=== PATIENT | female | born 1955 | race American Indian/Alaskan Native ===

== ENCOUNTER 2016-07-18 17:54 | Inpatient (IN) | payer MEDICAID, OTHER ==
--- NOTE | 2016-07-18 17:56 | EDM.PDOC ---
<Tobias Downey - Last Filed: 07/18/16 18:55> ED HPI GENERAL MEDICAL PROBLEM - General Chief Complaint: Respiratory Problem Stated Complaint: AMBULANCE Time Seen by Provider: 07/18/16 17:55 Source of Information: Reports: Patient, EMS, RN, RN Notes Reviewed History Limitations: Reports: No Limitations Upper Back Pain Score (Numeric/FACES): 8 - Related Data Allergies Allergy/AdvReac Type Severity Reaction Status Date / Time codeine Allergy Vomiting Verified 07/18/16 17:55 morphine Allergy Rash Verified 07/18/16 17:55 Penicillins Allergy Hives Verified 07/18/16 17:55 Home Meds: Home Meds Albuterol [Proventil HFA] 2 puff INH Q6H PRN 01/15/16 [History] Aspirin [Ecotrin] 325 mg PO DAILY 01/15/16 [History] Clopidogrel [Plavix] 75 mg PO DAILY 01/15/16 [History] Digoxin 125 mcg PO DAILY 01/15/16 [History] Folic Acid 1 mg PO DAILY 01/15/16 [History] Gabapentin [Neurontin] 1,200 mg PO TID 01/15/16 [History] Hydroxychloroquine [Plaquenil] 200 mg PO BID 01/15/16 [History] Leflunomide [Arava] 10 mg PO DAILY 01/15/16 [History] Levothyroxine 175 mcg PO ACBRK 01/15/16 [History] Lisinopril [Prinivil] 5 mg PO DAILY 01/15/16 [History] Pantoprazole [ProTONIX] 40 mg PO ACBREAKFAST 01/15/16 [History] Simvastatin [Zocor] 20 mg PO BEDTIME 01/15/16 [History] metFORMIN [Glucophage] 1,000 mg PO BIDMEALS 01/15/16 [History] oxyCODONE HCl/Acetaminophen [Percocet 10-325 mg Tablet] 1 each PO Q6HR PRN 01/14 [History] oxyCODONE ER [OxyCONTIN] 10 mg PO Q12HR 01/16/16 [History] Benzonatate [Tessalon Perles] 100 mg PO TID PRN #21 cap 01/19/16 [Rx] Nicotine [Habitrol] 14 mg TRDERM DAILY #30 patch 01/19/16 [Rx] Prednisone [IJD: Prednisone] 10 mg PO DAILY #20 tab 01/19/16 [Rx] Past Medical History HEENT History: Reports: Impaired Vision Cardiovascular History: Reports: CAD, Heart Failure, High Cholesterol, Hypertension, ID Respiratory History: Reports: COPD 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: Musculoskeletal History: Reports: RA Endocrine/Metabolic History: Reports: Diabetes, Type II, Hypothyroidism - Past Surgical History Cardiovascular Surgical History: Reports: Coronary Artery Bypass Musculoskeletal Surgical History: Reports: Other (See Below) Social & Family History - Family History Family Medical History: Noncontributory - Tobacco Use Smoking Status *Q: Current Some Day Smoker Years of Tobacco use: 30 Packs/Tins Daily: 0.5 Second Hand Smoke Exposure: Yes - Caffeine Use Caffeine Use: Reports: Coffee - Alcohol Use Days Per Week of Alcohol Use: 0 - Recreational Drug Use Recreational Drug Use: No - Living Situation & Occupation Living situation: Reports: with Family Occupation: Disabled Course - Vital Signs Last Recorded V/S: Last Vital Signs Temp 36.4 C 07/18/16 20:42 Pulse 99 07/18/16 20:42 Resp 22 H 07/18/16 20:42 BP 97/57 L 07/18/16 20:42 Pulse Ox 98 07/18/16 20:42 - Orders/Labs/Meds Orders: Active Orders 24 hr Category Date Time Status EKG Documentation Completion [RC] URGENT Care 07/18/16 19:34 Active Peripheral IV Care [RC] . DIRECTED Care 07/18/16 18:29 Active RT Aerosol Therapy [RC] ASDIRECTED Care 07/18/16 18:29 Active Chest w Cont [CT] Urgent Exams 07/18/16 19:21 Taken CULTURE BLOOD [BC] Stat Lab 07/18/16 18:41 Received CULTURE BLOOD [BC] Stat Lab 07/18/16 19:15 Received UA W/MICROSCOPIC [URIN] Stat Lab 07/18/16 20:17 Received Sodium Chloride 0.9% [Saline Flush] Med 07/18/16 18:29 Active 10 ml FLUSH ASDIRECTED PRN Blood Culture x2 Reflex Set [OM.PC] Stat Oth 07/18/16 18:29 Ordered Peripheral IV Insertion Adult [OM.PC] Stat Oth 07/18/16 18:29 Ordered Medication Orders Sodium Chloride (Saline Flush) 10 ml FLUSH ASDIRECTED PRN PRN Reason: Keep Vein Open Labs: Laboratory Tests 07/18/16 07/18/16 07/18/16 Range/Units 18:41 18:41 18:41 WBC 23.0 H (5.0-10.0) 10^3/uL RBC 4.39 (4.2-5.4) 10^6/uL Hgb 11.7 L (12.0-16.0) g/dL Hct 35.9 L (37.0-47.0) % MCV 81.8 (80-100) fL MCH 26.7 L (27.0-34.0) pg MCHC 32.6 L (33.0-35.0) g/dL Plt Count 110 L (150-450) 10^3/uL Neut % (Auto) 90.5 H (42.2-75.2) % Lymph % (Auto) 5.3 L (20.5-50.1) % Z[place]ata % (Auto) 4.1 (2-8) % Eos % (Auto) 0.0 L (1.0-3.0) % Baso % (Auto) 0.1 (0.0-1.0) % D-Dimer, Quantitative 3010 H (0-400) ng/mL Sodium 127 L (135-145) mmol/L Potassium 4.0 (3.6-5.0) mmol/L Chloride 96 L (101-111) mmol/L Carbon Dioxide 22.0 (21.0-31.0) mmol/L Anion Gap 13.0 BUN 19 H (7-18) mg/dL Creatinine 1.0 (0.6-1.3) mg/dL Est Cr Clr Drug Dosing 43.81 mL/min Estimated GFR (MDRD) 57 BUN/Creatinine Ratio 19.00 Glucose 127 H (74-105) mg/dL Lactic Acid (0.5-2.2) mmol/L Calcium 8.1 L (8.4-10.2) mg/dl Total Bilirubin 1.0 (0.2-1.0) mg/dL AST 17 (10-42) IU/L ALT 10 (10-60) IU/L Alkaline Phosphatase 81 (42-121) IU/L Troponin I 0.05 H* (0.00-0.02) ng/ml Total Protein 7.3 (6.7-8.2) g/dl Albumin 3.1 L (3.2-5.5) g/dl Globulin 4.2 Albumin/Globulin Ratio 0.74 Urine Opiates Screen (NEGATIVE) Ur Oxycodone Screen (NEGATIVE) Urine Methadone Screen (NEGATIVE) Ur Barbiturates Screen (NEGATIVE) U Tricyclic Antidepress (NEGATIVE) Ur Phencyclidine Scrn (NEGATIVE) Ur Amphetamine Screen (NEGATIVE) U Methamphetamines Scrn (NEGATIVE) Urine MDMA Screen (NEGATIVE) U Benzodiazepines Scrn (NEGATIVE) Urine Cocaine Screen (NEGATIVE) U Marijuana (THC) Screen (NEGATIVE) Ethyl Alcohol < 5 mg/dL 07/18/16 07/18/16 Range/Units 18:41 20:17 WBC (5.0-10.0) 10^3/uL RBC (4.2-5.4) 10^6/uL Hgb (12.0-16.0) g/dL Hct (37.0-47.0) % MCV (80-100) fL MCH (27.0-34.0) pg MCHC (33.0-35.0) g/dL Plt Count (150-450) 10^3/uL Neut % (Auto) (42.2-75.2) % Lymph % (Auto) (20.5-50.1) % Zapata % (Auto) (2-8) % Eos % (Auto) (1.0-3.0) % Baso % (Auto) (0.0-1.0) % D-Dimer, Quantitative (0-400) ng/mL Sodium (135-145) mmol/L Potassium (3.6-5.0) mmol/L Chloride (101-111) mmol/L Carbon Dioxide (21.0-31.0) mmol/L Anion Gap BUN (7-18) mg/dL Creatinine (0.6-1.3) mg/dL Est Cr Clr Drug Dosing mL/min Estimated GFR (MDRD) BUN/Creatinine Ratio Glucose (74-105) mg/dL Lactic Acid 1.0 (0.5-2.2) mmol/L Calcium (8.4-10.2) mg/dl Total Bilirubin (0.2-1.0) mg/dL AST (10-42) IU/L ALT (10-60) IU/L Alkaline Phosphatase (42-121) IU/L Troponin I (0.00-0.02) ng/ml Total Protein (6.7-8.2) g/dl Albumin (3.2-5.5) g/dl Globulin Albumin/Globulin Ratio Urine Opiates Screen Positive H (NEGATIVE) Ur Oxycodone Screen Positive H (NEGATIVE) Urine Methadone Screen Negative (NEGATIVE) Ur Barbiturates Screen Negative (NEGATIVE) U Tricyclic Antidepress Negative (NEGATIVE) Ur Phencyclidine Scrn Negative (NEGATIVE) Ur Amphetamine Screen Negative (NEGATIVE) U Methamphetamines Scrn Negative (NEGATIVE) Urine MDMA Screen Negative (NEGATIVE) U Benzodiazepines Scrn Negative (NEGATIVE) Urine Cocaine Screen Negative (NEGATIVE) U Marijuana (THC) Screen Positive H (NEGATIVE) Ethyl Alcohol mg/dL Meds: Medications Generic Name Dose Route Start Last Admin Trade Name Freq PRN Reason Stop Dose Admin Sodium Chloride 10 ml 07/18/16 18:29 Saline Flush FLUSH ASDIRECTED PRN Keep Vein Open Discontinued Medications Generic Name Dose Route Start Last Admin Trade Name Freq PRN Reason Stop Dose Admin Albuterol/Ipratropium 3 ml 07/18/16 18:28 07/18/16 18:38 Duoneb 3.0-0.5 Mg/3 Ml NEB 07/18/16 18:29 3 ml ONETIME ONE Administration Iopamidol 100 ml 07/18/16 19:21 07/18/16 19:52 Isovue-370 (76%) IVPUSH 07/18/16 19:22 51 ml ONETIME ONE Administration Departure - Departure Disposition: Admitted As Inpatient 67 Clinical Impression: Bronchitis - Discharge Information Referrals: PCP,Unobtain [Primary Care Provider] - Forms: ED Department Discharge Care Plan Goals: Discussed the examination, history, lab, x-ray, EKG and CT results with Dr. De Santiago. Dr. De Santiago accepted the patient for continued evaluation and further management as an inpatient at [facility] in [place]. - My Orders Last 24 Hours: My Active Orders 07/18/16 19:21 Chest w Cont [CT] Urgent 07/18/16 19:34 EKG Documentation Completion [RC] URGENT - Assessment/Plan Last 24 Hours: My Active Orders 07/18/16 19:21 Chest w Cont [CT] Urgent 07/18/16 19:34 EKG Documentation Completion [RC] URGENT <Campa,Kody M - Last Filed: 07/18/16 21:20> ED HPI GENERAL MEDICAL PROBLEM - History of Present Illness INITIAL COMMENTS - FREE TEXT/NARRATIVE: This 60 yo female patient was brought to the ED by [facility] due to increased shortness of breath and a cough. The patient reports her symptoms started 4 days ago and have been getting worse. The patient has a past medical history of RA, diabetes, previous ID and previous episodes of pneumonia. The patient was hospitalized for pneumonia in February with similar symptoms. The patient reports she was in [place] for an ultrasound on Saturday of this week. The patient has not attempted to get into the clinic for an appointment this week. Onset: Gradual Onset Date: 07/15/16 Duration: Constant, Getting Worse Location: Reports: Chest Quality: Reports: Dull Severity: Moderate Improves with: Reports: Rest Worsens with: Reports: Movement Associated Symptoms: Reports: Cough, Fever/Chills, Shortness of Breath, Weakness ED ROS GENERAL - Review of Systems Review Of Systems: ROS reveals no pertinent complaints other than HPI. ED EXAM, GENERAL - Physical Exam Exam: See Below Exam Limited By: No Limitations General Appearance: Alert, WD/WN, Mild Distress, Thin Eye Exam: Bilateral Eye: EOMI, Normal Inspection, PERRL Ears: Normal External Exam, Normal Canal, Hearing Grossly Normal, Normal TMs Nose: Normal Inspection, Normal Mucosa, No Blood Throat/Mouth: Normal Inspection, Normal Lips, Normal Teeth, Normal Gums, Normal Oropharynx, Normal Voice, No Airway Compromise Head: Atraumatic, Normocephalic Neck: Normal Inspection, Supple, Non-Tender, Full Range of Motion Respiratory/Chest: No Respiratory Distress, Chest Non-Tender, Decreased Breath Sounds, Rhonchi (diffuse) Cardiovascular: Normal Peripheral Pulses, Regular Rate, Rhythm, No Edema, No Gallop, No JVD, No Rub GI/Abdominal: Normal Bowel Sounds, Soft, Non-Tender, No Organomegaly, No Distention, No Abnormal Bruit, No Mass (Female) Exam: Deferred Rectal (Female) Exam: Deferred Back Exam: Normal Inspection, Full Range of Motion, NT Extremities: Other (deformity of numerous joints due to RA) Neurological: Alert, Oriented, CN II-XII Intact, Normal Cognition, No Motor/ Sensory Deficits Psychiatric: Normal Affect, Normal Mood Skin Exam: Warm, Dry, Intact, Normal Color, No Rash Lymphatic: No Adenopathy Departure - Departure Time of Disposition: 21:13
[2016-07-18] MEDS ORDERED: Albuterol/Ipratropium 3.0-0.5 MG/3 ML Neb Soln NEB ONE (18:28)
[2016-07-18] MEDS ORDERED: Sodium Chloride 0.9% 10 ML Syringe FLUSH PRN ×2 (18:29→21:51)
[2016-07-18 19:08] LABS: CHLORIDE,CL 96 mmol/L (101-111); SODIUM,NA 127 mmol/L (135-145)
[2016-07-18] MEDS ORDERED: Iopamidol 755 Mg/ML 100 ML Bottle IVPUSH ONE (19:21)
[2016-07-18] MEDS ORDERED: Non-Formulary Medication 1 Each (Acetaminophen/Oxycodone 1 EACH) PO PRN (21:46)
[2016-07-18] MEDS ORDERED: Acetaminophen 325 MG Tab PO PRN (21:51)
[2016-07-18] MEDS ORDERED: Insulin Aspart 100 Units/ML 3 ML Pen SUBCUT SCH ×2 (22:00→22:30)
[2016-07-18] MEDS ORDERED: Azithromycin 500 MG Vial ONE (22:05)
[2016-07-18] MEDS ORDERED: oxyCODONE 5 MG Tab PO PRN ×2 (22:09→23:02)
[2016-07-18] MEDS ORDERED: Levothyroxine 100 MCG Tab PO SCH ×2 (22:10→22:15)
--- NOTE | 2016-07-18 22:11 | PCM.HP ---
H&P History of Present Illness - General Date of Service: 07/18/16 Admit Problem/Dx: Admission Diagnosis/Problem Admission Diagnosis/Problem Dyspnea presented with fever, cough, yellow sputum production Has been short of breath since Saturday, has been worsening gradually No associated chest pain, no pain Has chronic joint pain, using oxycodone. Upper Back Pain Score (Numeric/FACES): 8 - Related Data Allergies/Adverse Reactions: Allergies Allergy/AdvReac Type Severity Reaction Status Date / Time codeine Allergy Vomiting Verified 07/18/16 17:55 morphine Allergy Rash Verified 07/18/16 17:55 Penicillins Allergy Hives Verified 07/18/16 17:55 Home Medications: Home Meds Albuterol [Proventil HFA] 2 puff INH Q6H PRN 01/15/16 [History] Aspirin [Ecotrin] 325 mg PO DAILY 01/15/16 [History] Clopidogrel [Plavix] 75 mg PO DAILY 01/15/16 [History] Digoxin 125 mcg PO DAILY 01/15/16 [History] Folic Acid 1 mg PO DAILY 01/15/16 [History] Gabapentin [Neurontin] 1,200 mg PO TID 01/15/16 [History] Hydroxychloroquine [Plaquenil] 200 mg PO BID 01/15/16 [History] Leflunomide [Arava] 10 mg PO DAILY 01/15/16 [History] Levothyroxine 175 mcg PO ACBRK 01/15/16 [History] Lisinopril [Prinivil] 5 mg PO DAILY 01/15/16 [History] Pantoprazole [ProTONIX] 40 mg PO ACBREAKFAST 01/15/16 [History] Simvastatin [Zocor] 20 mg PO BEDTIME 01/15/16 [History] metFORMIN [Glucophage] 1,000 mg PO BIDMEALS 01/15/16 [History] oxyCODONE HCl/Acetaminophen [Percocet 10-325 mg Tablet] 1 each PO Q6HR PRN 01/14 [History] oxyCODONE ER [OxyCONTIN] 10 mg PO Q12HR 01/16/16 [History] Benzonatate [Tessalon Perles] 100 mg PO TID PRN #21 cap 01/19/16 [Rx] Nicotine [Habitrol] 14 mg TRDERM DAILY #30 patch 01/19/16 [Rx] Prednisone [IJD: Prednisone] 10 mg PO DAILY #20 tab 01/19/16 [Rx] Past Medical History HEENT History: Reports: Impaired Vision Cardiovascular History: Reports: CAD, Heart Failure, High Cholesterol, Hypertension, [place], SOB on Exertion Respiratory History: Reports: Bronchitis, Recurrent, COPD, Pulmonary Fibrosis ( do to rheumatoid arthritis), SOB, Other (See Below) Gastrointestinal History: Reports: Cholelithiasis 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: 4 NVD Musculoskeletal History: Reports: Osteoarthritis, RA Neurological History: Reports: Migraines Endocrine/Metabolic History: Reports: Diabetes, Type I, Hypothyroidism Hematologic History: Reports: Anesthesia Reaction, Anemia Immunologic History: Reports: Other (See Below) (rheumatoid arthritis) - Infectious Disease History Infectious Disease History: Reports: Chicken Pox, Measles, Mumps - Past Surgical History HEENT Surgical History: Reports: None Cardiovascular Surgical History: Reports: Coronary Artery Bypass Respiratory Surgical History: Reports: None GI Surgical History: Reports: Cholecystectomy, Colonoscopy Female Surgical History: Reports: Hysterectomy Neurological Surgical History: Reports: None Musculoskeletal Surgical History: Reports: Other (See Below) Other Musculoskeletal Surgeries/Procedures:: hAND SURGERY BILATERALLY Social & Family History - Family History Family Medical History: Noncontributory - Tobacco Use Smoking Status *Q: Current Every Day Smoker Years of Tobacco use: 35 Packs/Tins Daily: 1 Second Hand Smoke Exposure: Yes - Caffeine Use Caffeine Use: Reports: Coffee Caffeine Use Comment: 1 pot/day - Alcohol Use Days Per Week of Alcohol Use: 0 - Recreational Drug Use Recreational Drug Use: No - Living Situation & Occupation Living situation: Reports: with Family Occupation: Disabled H&P Review of Systems - Review of Systems: Review Of Systems: See Below General: Reports: Fever (subjective), Malaise, Weakness Pulmonary: Reports: Shortness of Breath, Cough, Sputum. Denies: Wheezing Cardiovascular: Denies: Chest Pain Gastrointestinal: Denies: Abdominal Pain Genitourinary: Denies: Dysuria Neurological: Denies: Confusion Exam - Exam Exam: See Below - Vital Signs Vital Signs: Last Vital Signs Temp 36.4 C 07/18/16 20:42 Pulse 99 07/18/16 20:42 Resp 22 H 07/18/16 20:42 BP 97/57 L 07/18/16 20:42 Pulse Ox 98 07/18/16 20:42 Weight: 45.983 kg - Exam Quality Assessment: Supplemental Oxygen General: Alert, Oriented Neck: Supple Lungs: Normal Respiratory Effort, Rhonchi Cardiovascular: Regular Rate, Regular Rhythm Back Exam: Normal Inspection, Full Range of Motion, NT Extremities: Other (severe arthritic deformity of all the fingers). No: Edema Neuro Extensive - Mental Status: Alert, Oriented x3, Normal Mood/Affect, Normal Cognition - Patient Data Result Diagrams: 07/18/16 18:41 07/18/16 18:41 Imaging Impressions last 24 hrs: CT of the chest per the sugar reading shows no pulmonary embolism no mass, small nodules, severe fibrotic changes. No apparent infiltrate EKG INTERPRETATION EKG Date: 07/18/16 Rhythm: NSR *Q Meaningful Use (ADM) - VTE *Q VTE Criteria *Q: - Stroke *Q Stroke Criteria *Q: - AMI *Q AMI Criteria *Q: - Problem List (1) Diabetes SNOMED Code(s): 43224156 ICD Code: E11.9 - TYPE 2 DIABETES MELLITUS WITHOUT COMPLICATIONS Status: Acute Current Visit: Yes (2) Hyponatremia SNOMED Code(s): 86872836 ICD Code: E87.1 - HYPO-OSMOLALITY AND HYPONATREMIA Status: Acute Current Visit: Yes (3) Acute bronchitis SNOMED Code(s): 29202383 ICD Code: J20.9 - ACUTE BRONCHITIS, UNSPECIFIED Status: Acute Current Visit: No (4) Leukocytosis SNOMED Code(s): 716609893, 624273161 ICD Code: D72.829 - ELEVATED WHITE BLOOD CELL COUNT, UNSPECIFIED Status: Acute Current Visit: No Qualifiers: Leukocytosis type: unspecified Qualified Code(s): D72.829 - Elevated white blood cell count, unspecified Problem List Initiated/Reviewed/Updated: Yes Orders Last 24hrs: Active Orders 24 hr Category Date Time Status Patient Status [ADT] Routine ADT 07/18/16 21:52 Ordered Antiembolic Devices [RC] PER UNIT ROUTINE Care 07/18/16 21:55 Ordered Blood Glucose Check, Bedside [RC] QIDACANDBED Care 07/18/16 21:51 Ordered Oxygen Therapy [RC] PRN Care 07/18/16 21:52 Ordered RT Aerosol Therapy [RC] ASDIRECTED Care 07/18/16 21:46 Ordered Up With Assistance [RC] ASDIRECTED Care 07/18/16 21:51 Ordered VTE/DVT Education [RC] PER UNIT ROUTINE Care 07/18/16 21:52 Ordered Vital Signs [RC] Q4H Care 07/18/16 21:52 Ordered Consistent Carbohydrate Diet [DIET] Diet 07/18/16 Breakfast Ordered CULTURE SPUTUM + SMEAR [RM] Routine Lab 07/18/16 21:44 Uncollected TROPONIN I [CHEM] AM Lab 07/19/16 05:11 Ordered Acetaminophen [Tylenol] Med 07/18/16 21:51 Ordered 650 mg PO Q4H PRN Acetaminophen/oxyCODONE Med 07/18/16 21:46 Ordered 1 each PO Q6HR PRN Albuterol/Ipratropium [DuoNeb 3.0-0.5 MG/3 ML] Med 07/19/16 07:00 Ordered 3 ml NEB TIDRT Aspirin [Ecotrin] Med 07/19/16 09:00 Ordered 325 mg PO DAILY Azithromycin [Zithromax] 500 mg Med 07/18/16 21:45 Ordered Sodium Chloride 0.9% [Normal Saline] 250 ml IV Q24H Benzonatate [Tessalon Perles] Med 07/18/16 21:46 Ordered 100 mg PO TID PRN Clopidogrel [Plavix] Med 07/19/16 09:00 Ordered 75 mg PO DAILY Digoxin [Lanoxin] Med 07/19/16 09:00 Ordered 125 mcg PO DAILY Folic Acid Med 07/19/16 09:00 Ordered 1 mg PO DAILY Gabapentin Med 07/19/16 09:00 Ordered 1,200 mg PO TID Heparin Sodium Med 07/18/16 22:00 Ordered 5,000 units SUBCUT Q8HR Hydroxychloroquine [Plaquenil] Med 07/19/16 09:00 Ordered 200 mg PO BID Insulin Aspart [NovoLOG] Med 07/18/16 22:00 Ordered See Protocol SUBCUT .QACHS Leflunomide [Arava] Med 07/19/16 09:00 Ordered 10 mg PO DAILY Levothyroxine [Levothyroxine] Med 07/18/16 22:00 Ordered 175 mcg PO ACBRK Lisinopril [Prinivil] Med 07/19/16 09:00 Ordered 5 mg PO DAILY Nicotine [Habitrol] Med 07/19/16 09:00 Ordered 14 mg TRDERM DAILY Pantoprazole [ProTONIX] Med 07/19/16 06:00 Ordered 40 mg PO ACBREAKFAST Simvastatin [Zocor] Med 07/19/16 21:00 Ordered 20 mg PO BEDTIME Sodium Chloride 0.9% @ 75 MLS/HR(1000ml) Med 07/18/16 22:00 Ordered Sodium Chloride 0.9% [Normal Saline] 1,000 ml IV ASDIRECTED Sodium Chloride 0.9% [Saline Flush] Med 07/18/16 21:51 Ordered 10 ml FLUSH ASDIRECTED PRN cefTRIAXone [Rocephin] 1 gm Med 07/18/16 21:45 Ordered Sodium Chloride 0.9% [Normal Saline] 50 ml IV Q24H oxyCODONE ER [OxyCONTIN] Med 07/19/16 09:00 Ordered 10 mg PO Q12HR predniSONE Med 07/19/16 09:00 Ordered 10 mg PO DAILY Antiembolic Hose [OM.PC] Per Unit Routine Oth 07/18/16 21:54 Ordered Saline Lock Insert [OM.PC] Routine Oth 07/18/16 21:51 Ordered Resuscitation Status Routine Resus Stat 07/18/16 21:51 Ordered Medication Orders Acetaminophen (Tylenol) 650 mg PO Q4H PRN PRN Reason: Pain (Mild 1-3)/fever Albuterol/Ipratropium (Duoneb 3.0-0.5 Mg/3 Ml) 3 ml NEB TIDRT [facility] Aspirin (Ecotrin) 325 mg PO DAILY [facility] Benzonatate (Tessalon Perles) 100 mg PO TID PRN PRN Reason: Cough Clopidogrel Bisulfate (Plavix) 75 mg PO DAILY [facility] Digoxin (Lanoxin) 125 mcg PO DAILY@0800 [facility] Folic Acid (Folic Acid) 1 mg PO DAILY [facility] Heparin Sodium (Porcine) (Heparin Sodium) 5,000 units SUBCUT Q8HR [facility] Hydroxychloroquine Sulfate (Plaquenil) 200 mg PO BID [facility] Azithromycin 500 mg/ Sodium (Chloride) 250 mls @ 250 mls/hr IV Q24H [facility] Ceftriaxone Sodium 1 gm/ (Sodium Chloride) 50 mls @ 100 mls/hr IV Q24H [facility] Lisinopril (Prinivil) 5 mg PO DAILY [facility] Nicotine (Habitrol) 14 mg TRDERM DAILY [facility] Non-Formulary Medication (Acetaminophen/Oxycodone) 1 each PO Q6HR PRN PRN Reason: Pain Non-Formulary Medication (Gabapentin) 1,200 mg PO TID [facility] Non-Formulary Medication (Leflunomide [Arava]) 10 mg PO DAILY [facility] Non-Formulary Medication (Levothyroxine [Levothyroxine]) 175 mcg PO ACBRK [facility] Oxycodone HCl (Oxycontin) 10 mg PO Q12HR [facility] Pantoprazole Sodium (Protonix) 40 mg PO ACBREAKFAST [facility] Prednisone (Prednisone) 10 mg PO DAILY [facility] Simvastatin (Zocor) 20 mg PO BEDTIME [facility] Sodium Chloride (Saline Flush) 10 ml FLUSH ASDIRECTED PRN PRN Reason: Keep Vein Open Sodium Chloride (Saline Flush) 10 ml FLUSH ASDIRECTED PRN PRN Reason: Keep Vein Open Assessment/Plan Comment:: 1. Acute bronchitis Presented with cough, subjective fever, yellow sputum, Leukocytosis daughter with similar symptoms at home we'll obtain blood culture, sputum culture treat with azithromycin, Rocephin use scheduled DuoNeb for shortness of breath with history of pulmonary fibrosis 2. Hyponatremia due to poor oral intake They give IV fluids Recheck basic metabolic panel in the morning 3. diabetes Hold metformin use supplemental insulin and hypoglycemia protocol as needed 4. severe rheumatoid arthritis Continue immunosuppressants the leukocytosis might at least in part be due to steroid 5. coronary artery disease Treatment aspirin and Plavix The shortness of breath is most likely not due to the acute coronary syndrome Check troponin in the morning 6. DVT prophylaxis will be with sq heparin 7. chronic pain due to rheumatoid arthritis With chronic continuous narcotic use try not to escalate narcotics
[2016-07-18] MEDS: Azithromycin 500 MG in Sodium Chloride 0.9% 250 ML IV SCH (22:14)
[2016-07-18] MEDS: Heparin Sodium 5,000 Units/ML Vial SUBCUT SCH (22:15)
[2016-07-18] MEDS: Benzonatate 100 MG Cap PO PRN (22:17)
[2016-07-18] MEDS ORDERED: oxyCODONE 5 MG Tab PO ONE (23:00)
[2016-07-18] MEDS: Sodium Chloride 0.9% 1,000 ML IV SCH (23:18)
[2016-07-18] MEDS: cefTRIAXone 1 GM in Sodium Chloride 0.9% 50 ML IV SCH (23:20)
[2016-07-19] MEDS: Acetaminophen/oxyCODONE 325-5 MG Tab PO PRN ×2 (01:23→10:08)
[2016-07-19] MEDS: Heparin Sodium 5,000 Units/ML Vial SUBCUT SCH ×3 (05:26→22:12)
[2016-07-19] MEDS: Levothyroxine 75 MCG Tab PO SCH (05:27)
[2016-07-19] MEDS: Levothyroxine 100 MCG Tab PO SCH (05:27)
[2016-07-19] MEDS: Pantoprazole 40 MG Tab.CR PO SCH (05:27)
[2016-07-19 07:07] LABS: CHLORIDE,CL 100 mmol/L (101-111); SODIUM,NA 130 mmol/L (135-145)
[2016-07-19] MEDS: Albuterol/Ipratropium 3.0-0.5 MG/3 ML Neb Soln NEB SCH ×3 (07:50→20:51)
[2016-07-19] MEDS: Digoxin 125 MCG Tab PO SCH (08:38)
[2016-07-19] MEDS: Folic Acid 1 MG Tab PO SCH (08:39)
[2016-07-19] MEDS: Aspirin 325 MG Tab.EC PO SCH (08:39)
[2016-07-19] MEDS: Nicotine 14 MG/24 Hr Patch TRDERM SCH (08:40)
[2016-07-19] MEDS: Gabapentin 400 MG Cap PO SCH ×3 (08:40→20:51)
[2016-07-19] MEDS: Hydroxychloroquine 200 MG Tab PO SCH ×2 (08:41→20:52)
[2016-07-19] MEDS: Clopidogrel 75 MG Tab PO SCH (08:41)
[2016-07-19] MEDS: predniSONE 10 MG Tab PO SCH (08:42)
[2016-07-19] MEDS ORDERED: oxyCODONE ER 10 MG TAB.ER PO SCH (09:00)
[2016-07-19] MEDS ORDERED: Lisinopril 5 MG Tab PO SCH (09:00)
--- NOTE | 2016-07-19 11:47 | PCM.PN ---
- General Info Date of Service: 07/19/16 Admission Dx/Problem (Free Text): Admission Diagnosis/Problem Admission Diagnosis/Problem Dyspnea presented with fever, cough, yellow sputum production Has been short of breath since Saturday, has been worsening gradually No associated chest pain, no pain Has chronic joint pain, using oxycodone. overnight had high fever associated chills Continues to have cough with sputum No chest pain Blood pressure was noted to be low this morning - Review of Systems General: Reports: Fever, Weakness Pulmonary: Reports: cough, sputum. Denies: shortness of breath Cardiovascular: Denies: Chest Pain Gastrointestinal: Denies: Abdominal pain Genitourinary: Denies: dysuria Neurological: Denies: Confusion - Patient Data Vitals - most recent: Last Vital Signs Temp 36.8 C 07/19/16 11:15 Pulse 78 07/19/16 11:15 Resp 20 07/19/16 11:15 BP 84/51 L 07/19/16 11:15 Pulse Ox 96 07/19/16 11:15 Weight - most recent: 45.983 kg I&O - last 24 hours: Intake & Output 07/18/16 07/19/16 07/19/16 22:59 06:59 14:59 Intake Total 1056 Balance 1056 Lab Results last 24 hrs: Laboratory Results - last 24 hr 07/19/16 07/19/16 07/19/16 Range/Units 06:30 06:30 07:48 WBC 21.8 H (5.0-10.0) 10^3/uL RBC 4.02 L (4.2-5.4) 10^6/uL Hgb 10.6 L (12.0-16.0) g/dL Hct 32.8 L (37.0-47.0) % MCV 81.6 (80-100) fL MCH 26.4 L (27.0-34.0) pg MCHC 32.3 L (33.0-35.0) g/dL Plt Count 116 L (150-450) 10^3/uL Neut % (Auto) 90.1 H (42.2-75.2) % Lymph % (Auto) 5.6 L (20.5-50.1) % Elk % (Auto) 4.3 (2-8) % Eos % (Auto) 0.0 L (1.0-3.0) % Baso % (Auto) 0.0 (0.0-1.0) % Add Manual Diff Yes Neutrophils % (Manual) 94 % Band Neutrophils % 3 % Lymphocytes % (Manual) 3 % Sodium 130 L (135-145) mmol/L Potassium 4.2 (3.6-5.0) mmol/L Chloride 100 L (101-111) mmol/L Carbon Dioxide 23.0 (21.0-31.0) mmol/L Anion Gap 11.2 BUN 18 (7-18) mg/dL Creatinine 0.8 (0.6-1.3) mg/dL Est Cr Clr Drug Dosing 54.96 mL/min Estimated GFR (MDRD) > 60 Glucose 222 H (74-105) mg/dL POC Glucose 241 H (70-105) mg/dl Calcium 7.4 L (8.4-10.2) mg/dl Troponin I 0.04 H* (0.00-0.02) ng/ml 07/19/16 Range/Units 11:08 WBC (5.0-10.0) 10^3/uL RBC (4.2-5.4) 10^6/uL Hgb (12.0-16.0) g/dL Hct (37.0-47.0) % MCV (80-100) fL MCH (27.0-34.0) pg MCHC (33.0-35.0) g/dL Plt Count (150-450) 10^3/uL Neut % (Auto) (42.2-75.2) % Lymph % (Auto) (20.5-50.1) % Elk % (Auto) (2-8) % Eos % (Auto) (1.0-3.0) % Baso % (Auto) (0.0-1.0) % Add Manual Diff Neutrophils % (Manual) % Band Neutrophils % % Lymphocytes % (Manual) % Sodium (135-145) mmol/L Potassium (3.6-5.0) mmol/L Chloride (101-111) mmol/L Carbon Dioxide (21.0-31.0) mmol/L Anion Gap BUN (7-18) mg/dL Creatinine (0.6-1.3) mg/dL Est Cr Clr Drug Dosing mL/min Estimated GFR (MDRD) Glucose (74-105) mg/dL POC Glucose 140 H (70-105) mg/dl Calcium (8.4-10.2) mg/dl Troponin I (0.00-0.02) ng/ml Jeremie Results last 24 hrs: Microbiology 07/19/16 09:55 Gram Stain - Final Sputum - Expectorated Med Orders - Current: Current Medications Acetaminophen (Tylenol) 650 mg PO Q4H PRN PRN Reason: Pain (Mild 1-3)/fever Last Admin: 07/19/16 02:45 Dose: 650 mg Albuterol/Ipratropium (Duoneb 3.0-0.5 Mg/3 Ml) 3 ml NEB TIDRT [facility] Last Admin: 07/19/16 07:50 Dose: 3 ml Aspirin (Ecotrin) 325 mg PO DAILY [facility] Last Admin: 07/19/16 08:39 Dose: 325 mg Benzonatate (Tessalon Perles) 100 mg PO TID PRN PRN Reason: Cough Last Admin: 07/18/16 22:17 Dose: 100 mg Clopidogrel Bisulfate (Plavix) 75 mg PO DAILY [facility] Last Admin: 07/19/16 08:41 Dose: 75 mg Digoxin (Lanoxin) 125 mcg PO DAILY@0800 [facility] Last Admin: 07/19/16 08:38 Dose: 125 mcg Folic Acid (Folic Acid) 1 mg PO DAILY [facility] Last Admin: 07/19/16 08:39 Dose: 1 mg Gabapentin (Neurontin) 1,200 mg PO TID [facility] Last Admin: 07/19/16 08:40 Dose: 1,200 mg Heparin Sodium (Porcine) (Heparin Sodium) 5,000 units SUBCUT Q8HR [facility] Last Admin: 07/19/16 05:26 Dose: 5,000 units Hydroxychloroquine Sulfate (Plaquenil) 200 mg PO BID [facility] Last Admin: 07/19/16 08:41 Dose: 200 mg Azithromycin 500 mg/ Sodium (Chloride) 250 mls @ 250 mls/hr IV Q24H [facility] Last Admin: 07/18/16 22:14 Dose: 250 mls/hr Ceftriaxone Sodium 1 gm/ (Sodium Chloride) 50 mls @ 100 mls/hr IV Q24H [facility] Last Admin: 07/18/16 23:20 Dose: 100 mls/hr Sodium Chloride (Normal Saline) 1,000 mls @ 75 mls/hr IV ASDIRECTED [facility] Last Admin: 07/18/16 23:18 Dose: 75 mls/hr Insulin [facility] ([facility]) [facility]: Protocol Last Admin: 07/19/16 08:26 Dose: 4 units Levothyroxine Sodium (Levothyroxine) 75 mcg PO ACBREAKFAST [facility] Last Admin: 07/19/16 05:27 Dose: 75 mcg Levothyroxine Sodium (Synthroid) 100 mcg PO ACBREAKFAST [facility] Last Admin: 07/19/16 05:27 Dose: 100 mcg Nicotine (Habitrol) 14 mg TRDERM DAILY [facility] Last Admin: 07/19/16 08:40 Dose: 14 mg Non-Formulary Medication (Leflunomide [Arava]) 10 mg PO DAILY [facility] Oxycodone HCl (Oxycodone) 10 mg PO Q6H PRN PRN Reason: Pain Oxycodone/Acetaminophen (Percocet 325-5 Mg) 1 tab PO Q6H PRN PRN Reason: PAIN Last Admin: 07/19/16 10:08 Dose: 1 tab Pantoprazole Sodium (Protonix) 40 mg PO ACBREAKFAST [facility] Last Admin: 07/19/16 05:27 Dose: 40 mg Prednisone (Prednisone) 10 mg PO DAILY [facility] Last Admin: 07/19/16 08:42 Dose: 10 mg Simvastatin (Zocor) 20 mg PO BEDTIME [facility] Sodium Chloride (Saline Flush) 10 ml FLUSH ASDIRECTED PRN PRN Reason: Keep Vein Open Sodium Chloride (Saline Flush) 10 ml FLUSH ASDIRECTED PRN PRN Reason: Keep Vein Open Discontinued Medications Albuterol/Ipratropium (Duoneb 3.0-0.5 Mg/3 Ml) 3 ml NEB ONETIME ONE Stop: 07/18/16 18:29 Last Admin: 07/18/16 18:38 Dose: 3 ml Azithromycin (Zithromax) Confirm Administered Dose 500 mg .ROUTE .STK-MED ONE Stop: 07/18/16 22:06 Last Admin: 07/18/16 23:37 Dose: Not Given Insulin Asp[facility] (Nov[facility]) [facility] Reason: Protocol Iopamidol (Isovue-370 (76%)) 100 ml IVPUSH ONETIME ONE Stop: 07/18/16 19:22 Last Admin: 07/18/16 19:52 Dose: 51 ml Levothyroxine Sodium (Synthroid) 100 mcg PO ACBREAKFAST [facility] Levothyroxine Sodium (Synthroid) 100 mcg PO ACBREAKFAST [facility] Lisinopril (Prinivil) 5 mg PO DAILY [facility] Last Admin: 07/19/16 08:43 Dose: Not Given Oxycodone HCl (Oxycontin) 10 mg PO Q12HR [facility] Oxycodone HCl (Oxycodone) 5 mg PO Q6H PRN PRN Reason: PAIN Last Admin: 07/18/16 22:40 Dose: 5 mg Oxycodone HCl (Oxycodone) 5 mg PO ONETIME ONE Stop: 07/18/16 23:01 Last Admin: 07/18/16 23:21 Dose: 5 mg - Exam General: alert, oriented Neck: supple Lungs: Crackles (bilaterally) Abdomen: bowel sounds present, soft, no tenderness Extremities: no edema, other (severe arthritic change of all fingers) Neurological: no new focal deficit Psy/Mental Status: alert, normal affect, normal mood - Problem List & Annotations (1) Diabetes SNOMED Code(s): 70777851 Code(s): E11.9 - TYPE 2 DIABETES MELLITUS WITHOUT COMPLICATIONS Status: Acute Current Visit: Yes (2) Hyponatremia SNOMED Code(s): 64016935 Code(s): E87.1 - HYPO-OSMOLALITY AND HYPONATREMIA Status: Acute Current Visit: Yes (3) Acute bronchitis SNOMED Code(s): 41932212 Code(s): J20.9 - ACUTE BRONCHITIS, UNSPECIFIED Status: Acute Current Visit: No (4) Leukocytosis SNOMED Code(s): 919560465, 937744761 Code(s): D72.829 - ELEVATED WHITE BLOOD CELL COUNT, UNSPECIFIED Status: Acute Current Visit: No Qualifiers: Leukocytosis type: unspecified Qualified Code(s): D72.829 - Elevated white blood cell count, unspecified - Problem List Review Problem List Initiated/Reviewed/Updated: Yes - My Orders Last 24 Hours: My Active Orders 07/18/16 22:00 Sodium Chloride 0.9% [Normal Saline] 1,000 ml IV ASDIRECTED 07/18/16 22:08 Acetaminophen/oxyCODONE [Percocet 325-5 MG] 1 tab PO Q6H PRN 07/18/16 22:12 Glucose [Blood Glucose Check, Bedside] [RC] QIDACANDBED 07/18/16 22:30 Insulin Aspart [NovoLOG] See Protocol SUBCUT .[facility] 07/18/16 23:02 oxyCODONE 10 mg PO Q6H PRN 07/19/16 06:00 Levothyroxine 75 mcg PO ACBREAKFAST Levothyroxine [Synthroid] 100 mcg PO ACBREAKFAST 07/20/16 05:15 BASIC METABOLIC PANEL,BMP [CHEM] AM CBC WITH AUTO DIFF [HEME] AM - Plan Plan:: 1. Acute bronchitis Presented with cough, subjective fever, yellow sputum, Leukocytosis daughter with similar symptoms at home Blood culture: pending Sputum culture: pending treat with azithromycin, Rocephin use scheduled DuoNeb for shortness of breath with history of pulmonary fibrosis 2. Hyponatremia due to poor oral intake improving with IV fluids Recheck basic metabolic panel in the morning 3. diabetes Hold metformin use supplemental insulin and hypoglycemia protocol as needed 4. severe rheumatoid arthritis Continue immunosuppressants the leukocytosis might at least in part be due to steroid 5. coronary artery disease troponin basically remained negative Treatment aspirin and Plavix 6. chronic pain due to rheumatoid arthritis With chronic continuous narcotic use try not to escalate narcotics 7. Hypotension Stop PARI inhibitor Continue IV fluids 8. DVT prophylaxis will be with sq heparin
[2016-07-19] MEDS: Acetaminophen 325 MG Tab PO PRN ×2 (14:32→22:16)
[2016-07-19] MEDS: oxyCODONE 5 MG Tab PO PRN ×2 (14:34→22:15)
[2016-07-19] MEDS: Sodium Chloride 0.9% 1,000 ML IV SCH (14:39)
[2016-07-19] MEDS: Insulin Aspart 100 Units/ML 3 ML Pen SUBCUT SCH ×2 (17:49→21:35)
[2016-07-19] MEDS: LEFLUNOMIDE 10 MG PO SCH (18:31)
[2016-07-19] MEDS: Simvastatin 10 MG Tab PO SCH (20:52)
[2016-07-19] MEDS: cefTRIAXone 1 GM in Sodium Chloride 0.9% 50 ML IV SCH (21:37)
[2016-07-19] MEDS: Azithromycin 500 MG in Sodium Chloride 0.9% 250 ML IV SCH (22:09)
[2016-07-20] MEDS: Benzonatate 100 MG Cap PO PRN (01:13)
[2016-07-20] MEDS: Sodium Chloride 0.9% 1,000 ML IV SCH (05:44)
[2016-07-20] MEDS: Levothyroxine 75 MCG Tab PO SCH (05:48)
[2016-07-20] MEDS: Levothyroxine 100 MCG Tab PO SCH (05:48)
[2016-07-20] MEDS: Pantoprazole 40 MG Tab.CR PO SCH (05:49)
[2016-07-20] MEDS: Heparin Sodium 5,000 Units/ML Vial SUBCUT SCH ×3 (05:50→22:17)
[2016-07-20 06:25] LABS: CHLORIDE,CL 108 mmol/L (101-111); SODIUM,NA 137 mmol/L (135-145)
[2016-07-20] MEDS: Albuterol/Ipratropium 3.0-0.5 MG/3 ML Neb Soln NEB SCH ×3 (08:07→22:17)
[2016-07-20] MEDS: Insulin Aspart 100 Units/ML 3 ML Pen SUBCUT SCH ×4 (08:42→22:25)
[2016-07-20] MEDS: Digoxin 125 MCG Tab PO SCH (08:43)
[2016-07-20] MEDS: Aspirin 325 MG Tab.EC PO SCH (08:45)
[2016-07-20] MEDS: Gabapentin 400 MG Cap PO SCH ×3 (08:46→22:08)
[2016-07-20] MEDS: Folic Acid 1 MG Tab PO SCH (08:46)
[2016-07-20] MEDS: Nicotine 14 MG/24 Hr Patch TRDERM SCH (08:46)
[2016-07-20] MEDS: Hydroxychloroquine 200 MG Tab PO SCH ×2 (08:47→22:07)
[2016-07-20] MEDS: Clopidogrel 75 MG Tab PO SCH (08:47)
[2016-07-20] MEDS: Acetaminophen 325 MG Tab PO PRN ×2 (08:48→14:00)
[2016-07-20] MEDS: predniSONE 10 MG Tab PO SCH (08:48)
[2016-07-20] MEDS: oxyCODONE 5 MG Tab PO PRN ×3 (08:50→22:26)
--- NOTE | 2016-07-20 10:33 | PCM.PN ---
- General Info Date of Service: 07/20/16 Admission Dx/Problem (Free Text): Admission Diagnosis/Problem Admission Diagnosis/Problem Dyspnea presented with fever, cough, yellow sputum production Has been short of breath since Saturday, has been worsening gradually No associated chest pain, no pain Has chronic joint pain, using oxycodone. Subjective Update: feeling better, still has a cough which is nonproductive. Some associated chest pain with the cough but not otherwise. Fever is less. Shortness of breath is getting better. - Review of Systems General: Reports: Weakness. Denies: Fever Pulmonary: Reports: shortness of breath, pleuritic chest pain Cardiovascular: Denies: Chest Pain Gastrointestinal: Denies: Abdominal pain Genitourinary: Denies: dysuria Neurological: Denies: Confusion, Dizziness - Patient Data Vitals - most recent: Last Vital Signs Temp 37.2 C 07/20/16 07:00 Pulse 82 07/20/16 08:02 Resp 20 07/20/16 07:00 BP 101/60 07/20/16 07:00 Pulse Ox 97 07/20/16 08:07 Weight - most recent: 45.983 kg I&O - last 24 hours: Intake & Output 07/19/16 07/20/16 07/20/16 22:59 06:59 14:59 Intake Total 590 1272 Balance 590 1272 Lab Results last 24 hrs: Laboratory Results - last 24 hr 07/19/16 07/19/16 07/20/16 Range/Units 16:29 21:04 05:55 WBC 14.4 H (5.0-10.0) 10^3/uL RBC 3.50 L (4.2-5.4) 10^6/uL Hgb 9.3 L (12.0-16.0) g/dL Hct 29.1 L (37.0-47.0) % MCV 83.1 (80-100) fL MCH 26.6 L (27.0-34.0) pg MCHC 32.0 L (33.0-35.0) g/dL Plt Count 118 L (150-450) 10^3/uL Neut % (Auto) 85.5 H (42.2-75.2) % Lymph % (Auto) 9.5 L (20.5-50.1) % Emmet % (Auto) 4.7 (2-8) % Eos % (Auto) 0.2 L (1.0-3.0) % Baso % (Auto) 0.1 (0.0-1.0) % Sodium (135-145) mmol/L Potassium (3.6-5.0) mmol/L Chloride (101-111) mmol/L Carbon Dioxide (21.0-31.0) mmol/L Anion Gap BUN (7-18) mg/dL Creatinine (0.6-1.3) mg/dL Est Cr Clr Drug Dosing mL/min Estimated GFR (MDRD) Glucose (74-105) mg/dL POC Glucose 279 H 198 H (70-105) mg/dl Calcium (8.4-10.2) mg/dl 07/20/16 07/20/16 Range/Units 05:55 07:23 WBC (5.0-10.0) 10^3/uL RBC (4.2-5.4) 10^6/uL Hgb (12.0-16.0) g/dL Hct (37.0-47.0) % MCV (80-100) fL MCH (27.0-34.0) pg MCHC (33.0-35.0) g/dL Plt Count (150-450) 10^3/uL Neut % (Auto) (42.2-75.2) % Lymph % (Auto) (20.5-50.1) % Emmet % (Auto) (2-8) % Eos % (Auto) (1.0-3.0) % Baso % (Auto) (0.0-1.0) % Sodium 137 (135-145) mmol/L Potassium 3.6 (3.6-5.0) mmol/L Chloride 108 (101-111) mmol/L Carbon Dioxide 23.0 (21.0-31.0) mmol/L Anion Gap 9.6 BUN 9 (7-18) mg/dL Creatinine 0.5 L (0.6-1.3) mg/dL Est Cr Clr Drug Dosing 87.94 mL/min Estimated GFR (MDRD) > 60 Glucose 146 H (74-105) mg/dL POC Glucose 119 H (70-105) mg/dl Calcium 7.3 L (8.4-10.2) mg/dl Med Orders - Current: Current Medications Acetaminophen (Tylenol) 650 mg PO Q4H PRN PRN Reason: Pain (Mild 1-3)/fever Last Admin: 07/19/16 02:45 Dose: 650 mg Acetaminophen (Tylenol) 325 mg PO Q4H PRN PRN Reason: Pain Last Admin: 07/20/16 08:48 Dose: 325 mg Albuterol/Ipratropium (Duoneb 3.0-0.5 Mg/3 Ml) 3 ml NEB TIDRT [facility] Last Admin: 07/20/16 08:07 Dose: 3 ml Aspirin (Ecotrin) 325 mg PO DAILY [facility] Last Admin: 07/20/16 08:45 Dose: 325 mg Benzonatate (Tessalon Perles) 100 mg PO TID PRN PRN Reason: Cough Last Admin: 07/20/16 01:13 Dose: 100 mg Clopidogrel Bisulfate (Plavix) 75 mg PO DAILY [facility] Last Admin: 07/20/16 08:47 Dose: 75 mg Digoxin (Lanoxin) 125 mcg PO DAILY@0800 [facility] Last Admin: 07/20/16 08:43 Dose: 125 mcg Folic Acid (Folic Acid) 1 mg PO DAILY [facility] Last Admin: 07/20/16 08:46 Dose: 1 mg Gabapentin (Neurontin) 1,200 mg PO TID [facility] Last Admin: 07/20/16 08:46 Dose: 1,200 mg Heparin Sodium (Porcine) (Heparin Sodium) 5,000 units SUBCUT Q8HR [facility] Last Admin: 07/20/16 05:50 Dose: 5,000 units Hydroxychloroquine Sulfate (Plaquenil) 200 mg PO BID [facility] Last Admin: 07/20/16 08:47 Dose: 200 mg Azithromycin 500 mg/ Sodium (Chloride) 250 mls @ 250 mls/hr IV Q24H [facility] Last Admin: 07/19/16 22:09 Dose: 250 mls/hr Ceftriaxone Sodium 1 gm/ (Sodium Chloride) 50 mls @ 100 mls/hr IV Q24H [facility] Last Admin: 07/19/16 21:37 Dose: 100 mls/hr Sodium Chloride (Normal Saline) 1,000 mls @ 75 mls/hr IV ASDIRECTED [facility] Last Admin: 07/20/16 05:44 Dose: 75 mls/hr Insulin Aspart (Novolog) 0 unit SUBCUT ACBED [facility] PRN Reason: Protocol Last Admin: 07/20/16 08:42 Dose: Not Given Levothyroxine Sodium (Levothyroxine) 75 mcg PO ACBREAKFAST [facility] Last Admin: 07/20/16 05:48 Dose: 75 mcg Levothyroxine Sodium (Synthroid) 100 mcg PO ACBREAKFAST [facility] Last Admin: 07/20/16 05:48 Dose: 100 mcg Nicotine (Habitrol) 14 mg TRDERM DAILY [facility] Last Admin: 07/20/16 08:46 Dose: 14 mg Leflunomide 10 Mg (Own Med) 10 mg PO DAILY [facility] Last Admin: 07/19/16 18:31 Dose: Not Given Oxycodone HCl (Oxycodone) 10 mg PO Q4H PRN PRN Reason: Pain Last Admin: 07/20/16 08:50 Dose: 10 mg Oxycodone/Acetaminophen (Percocet 325-5 Mg) 1 tab PO Q6H PRN PRN Reason: PAIN Last Admin: 07/19/16 10:08 Dose: 1 tab Pantoprazole Sodium (Protonix) 40 mg PO ACBREAKFAST [facility] Last Admin: 07/20/16 05:49 Dose: 40 mg Prednisone (Prednisone) 10 mg PO DAILY [facility] Last Admin: 07/20/16 08:48 Dose: 10 mg Simvastatin (Zocor) 20 mg PO BEDTIME [facility] Last Admin: 07/19/16 20:52 Dose: 20 mg Sodium Chloride (Saline Flush) 10 ml FLUSH ASDIRECTED PRN PRN Reason: Keep Vein Open Sodium Chloride (Saline Flush) 10 ml FLUSH ASDIRECTED PRN PRN Reason: Keep Vein Open Discontinued Medications Albuterol/Ipratropium (Duoneb 3.0-0.5 Mg/3 Ml) 3 ml NEB ONETIME ONE Stop: 07/18/16 18:29 Last Admin: 07/18/16 18:38 Dose: 3 ml Azithromycin (Zithromax) Confirm Administered Dose 500 mg .ROUTE .STK-MED ONE Stop: 07/18/16 22:06 Last Admin: 07/18/16 23:37 Dose: Not Given Insulin Aspart (Novolog) 0 unit SUBCUT .[facility] PRN Reason: Protocol Insulin Aspart (Novolog) 0 unit SUBCUT .[facility] PRN Reason: Protocol Last Admin: 07/19/16 08:26 Dose: 4 units Iopamidol (Isovue-370 (76%)) 100 ml IVPUSH ONETIME ONE Stop: 07/18/16 19:22 Last Admin: 07/18/16 19:52 Dose: 51 ml Levothyroxine Sodium (Synthroid) 100 mcg PO ACBREAKFAST [facility] Levothyroxine Sodium (Synthroid) 100 mcg PO ACBREAKFAST [facility] Last Admin: 07/19/16 11:49 Dose: Not Given Lisinopril (Prinivil) 5 mg PO DAILY [facility] Last Admin: 07/19/16 08:43 Dose: Not Given Oxycodone HCl (Oxycontin) 10 mg PO Q12HR [facility] Oxycodone HCl (Oxycodone) 5 mg PO Q6H PRN PRN Reason: PAIN Last Admin: 07/18/16 22:40 Dose: 5 mg Oxycodone HCl (Oxycodone) 5 mg PO ONETIME ONE Stop: 07/18/16 23:01 Last Admin: 07/18/16 23:21 Dose: 5 mg Oxycodone HCl (Oxycodone) 10 mg PO Q6H PRN PRN Reason: Pain - Exam General: alert, oriented Lungs: Decreased breath sounds, Crackles. No: Wheezing Cardiovascular: Regular Rate, Regular Rhythm Abdomen: bowel sounds present, soft, no tenderness, no distension Extremities: no edema - Problem List & Annotations (1) Diabetes SNOMED Code(s): 90575587 Code(s): E11.9 - TYPE 2 DIABETES MELLITUS WITHOUT COMPLICATIONS Status: Acute Current Visit: Yes (2) Hyponatremia SNOMED Code(s): 62441168 Code(s): E87.1 - HYPO-OSMOLALITY AND HYPONATREMIA Status: Acute Current Visit: Yes (3) Acute bronchitis SNOMED Code(s): 04630679 Code(s): J20.9 - ACUTE BRONCHITIS, UNSPECIFIED Status: Acute Current Visit: No (4) Leukocytosis SNOMED Code(s): 323169750, 730292693 Code(s): D72.829 - ELEVATED WHITE BLOOD CELL COUNT, UNSPECIFIED Status: Acute Current Visit: No Qualifiers: Leukocytosis type: unspecified Qualified Code(s): D72.829 - Elevated white blood cell count, unspecified - Problem List Review Problem List Initiated/Reviewed/Updated: Yes - My Orders Last 24 Hours: My Active Orders 07/19/16 14:04 oxyCODONE 10 mg PO Q4H PRN 07/19/16 14:05 Acetaminophen [Tylenol] 325 mg PO Q4H PRN - Plan Plan:: 1. Acute bronchitis Presented with cough, subjective fever, yellow sputum, Leukocytosis daughter with similar symptoms at home Blood culture: pending Sputum culture: pending treat with azithromycin, Rocephin add robitussin use scheduled DuoNeb for shortness of breath with history of pulmonary fibrosis 2. Hyponatremia due to poor oral intake resolved with IV fluids stop IVF Recheck basic metabolic panel in the morning 3. diabetes Hold metformin use supplemental insulin and hypoglycemia protocol as needed 4. severe rheumatoid arthritis Continue immunosuppressants the leukocytosis might at least in part be due to steroid 5. coronary artery disease troponin basically remained negative Treatment aspirin and Plavix 6. chronic pain due to rheumatoid arthritis With chronic continuous narcotic use try not to escalate narcotics 7. Hypotension Stopped PARI inhibitor BP is better 8. DVT prophylaxis will be with sq heparin
[2016-07-20] MEDS: LEFLUNOMIDE 10 MG PO SCH (10:40)
[2016-07-20] MEDS: guaiFENesin 100 MG/5 ML Soln 5 ML UD Cup PO PRN ×2 (13:20→22:17)
--- NOTE | 2016-07-20 14:51 | EKG ---
07/19/2016- PEGGY JOHN - EKG per my reading, shows sinus tachycardia at the rate of [address], inferior Q-waves. [facility] /[id number]
[2016-07-20] MEDS: Simvastatin 10 MG Tab PO SCH (22:08)
[2016-07-20] MEDS: Acetaminophen/oxyCODONE 325-5 MG Tab PO PRN (22:15)
[2016-07-20] MEDS: Azithromycin 500 MG in Sodium Chloride 0.9% 250 ML IV SCH (22:40)
[2016-07-21] MEDS: cefTRIAXone 1 GM in Sodium Chloride 0.9% 50 ML IV SCH (00:15)
[2016-07-21] MEDS: Benzonatate 100 MG Cap PO PRN (03:24)
[2016-07-21] MEDS: Levothyroxine 100 MCG Tab PO SCH (05:30)
[2016-07-21] MEDS: Pantoprazole 40 MG Tab.CR PO SCH (05:31)
[2016-07-21] MEDS: oxyCODONE 5 MG Tab PO PRN (05:31)
[2016-07-21] MEDS: Levothyroxine 75 MCG Tab PO SCH (05:31)
[2016-07-21] MEDS: Heparin Sodium 5,000 Units/ML Vial SUBCUT SCH (05:31)
[2016-07-21] MEDS: Acetaminophen/oxyCODONE 325-5 MG Tab PO PRN (05:32)
[2016-07-21 07:06] LABS: CHLORIDE,CL 110 mmol/L (101-111); SODIUM,NA 141 mmol/L (135-145)
[2016-07-21] MEDS: Insulin Aspart 100 Units/ML 3 ML Pen SUBCUT SCH ×2 (09:07→12:46)
[2016-07-21] MEDS: Digoxin 125 MCG Tab PO SCH (09:24)
[2016-07-21] MEDS: Aspirin 325 MG Tab.EC PO SCH (09:24)
[2016-07-21] MEDS: Hydroxychloroquine 200 MG Tab PO SCH (09:24)
[2016-07-21] MEDS: Folic Acid 1 MG Tab PO SCH (09:25)
[2016-07-21] MEDS: Clopidogrel 75 MG Tab PO SCH (09:25)
[2016-07-21] MEDS: Gabapentin 400 MG Cap PO SCH (09:26)
[2016-07-21] MEDS: Nicotine 14 MG/24 Hr Patch TRDERM SCH (09:27)
[2016-07-21] MEDS: predniSONE 10 MG Tab PO SCH (09:27)
[2016-07-21] MEDS: LEFLUNOMIDE 10 MG PO SCH (09:30)
[2016-07-21] MEDS: Albuterol/Ipratropium 3.0-0.5 MG/3 ML Neb Soln NEB SCH ×2 (09:43→09:53)
[2016-07-21] MEDS: guaiFENesin 100 MG/5 ML Soln 5 ML UD Cup PO PRN (09:45)
[2016-07-21 12:47] VITALS: BP 126/70
--- NOTE | 2016-07-21 12:55 | PCM.DCSUM1 ---
Discharge Summary - Hospital Course Free Text/Narrative:: The pt was admitted with Dyspnea. she presented with fever, cough, yellow sputum production Has been short of breath since Saturday07/14/16 has been worsening gradually, she was treated for bronchitis and treated with Azithromycin and Ceftriaxone. Over the course of hospital stay her blood Culture showed no growth, sputum Normal sergio ( gram positive cocci in pairs and Yeast. She is doing very well now but her Hgb dropped, her blood type and cross was done and wanted to give 1 unit of blood but she has too many antibodies and blood will not be available until Saturday(07/24), She will go home today and will follow with PMD on Saturday ( 07/23) and if the hgb stay low then PMD can send her to [facility] for blood transfusion on Saturday. Pt agreed with the plan and I have discussed with her repeatedly HPI Initial Comments: The pt was admitted with Dyspnea. she presented with fever, cough, yellow sputum production Has been short of breath since Saturday07/14/16 has been worsening gradually, she was treated for bronchitis and treated with Azithromycin and Ceftriaxone. Brief History: This is a 60 y/O F with history of Rheumatoid arthritis, Hypertension and Pulmonary Fibrosis. Admitted with Dyspnea and treated with Abx ( Azithromycin and ceftriaxone) - Discharge Data Discharge Date: 07/21/16 Discharge Disposition: Home, Self-Care 01 Condition: Poor - Patient Summary/Data Hospital Course: The 60 Y/O F was admitted with Dyspnea. she presented with fever, cough, yellow sputum production Has been short of breath since Saturday07/14/16 has been worsening gradually, she was treated for bronchitis and treated with Azithromycin and Ceftriaxone. Over the course of hospital stay her blood Culture showed no growth, sputum Normal sergio ( gram positive cocci in pairs and Yeast. She is doing very well now but her Hgb dropped, her blood type and cross was done and wanted to give 1 unit of blood but she has too many antibodies and blood will not be available until Saturday(07/24), She will go home today and will follow with PMD on Saturday ( 07/23) and if the hgb stay low then PMD can send her to [facility] for blood transfusion on Saturday. Pt agreed with the plan and I have discussed with her repeatedly - Patient Instructions Diet: Regular Diet as Tolerated - Discharge Plan Prescriptions/Med Rec: Ciprofloxacin [Ciprofloxacin HCl] 250 mg PO BID #14 tablet Home Medications: Home Meds Aspirin [Ecotrin] 325 mg PO DAILY 01/15/16 [History] Clopidogrel [Plavix] 75 mg PO DAILY 01/15/16 [History] Digoxin 125 mcg PO DAILY 01/15/16 [History] Folic Acid 1 mg PO DAILY 01/15/16 [History] Gabapentin [Neurontin] 1,200 mg PO TID 01/15/16 [History] Hydroxychloroquine [Plaquenil] 200 mg PO BID 01/15/16 [History] Leflunomide [Arava] 10 mg PO DAILY 01/15/16 [History] Levothyroxine 175 mcg PO ACBRK 01/15/16 [History] Lisinopril [Prinivil] 5 mg PO DAILY 01/15/16 [History] Pantoprazole [ProTONIX] 40 mg PO ACBREAKFAST 01/15/16 [History] Simvastatin [Zocor] 20 mg PO BEDTIME 01/15/16 [History] metFORMIN [Glucophage] 1,000 mg PO BIDMEALS 01/15/16 [History] oxyCODONE HCl/Acetaminophen [Percocet 10-325 mg Tablet] 10 mg PO Q4HR PRN [History] Benzonatate [Tessalon Perles] 100 mg PO TID PRN #21 cap 01/19/16 [Rx] Prednisone [IJD: Prednisone] 10 mg PO DAILY #20 tab 01/19/16 [Rx] Ciprofloxacin [Ciprofloxacin HCl] 250 mg PO BID #14 tablet 07/21/16 [Rx] Patient Handouts: Chronic Obstructive Pulmonary Disease, Irde-vt-Toie, Shortness of Breath, Acute Bronchitis, Vllf-nf-Gino Forms: ED Department Discharge Referrals: PCP,Unobtain [Primary Care Provider] - - Discharge Summary/Plan Comment DC Time >30 min.: Yes Discharge Summary/Plan Comment: The pt was admitted with Dyspnea. she presented with fever, cough, yellow sputum production Has been short of breath since Saturday07/14/16 has been worsening gradually, she was treated for bronchitis and treated with Azithromycin and Ceftriaxone. Over the course of hospital stay her blood Culture showed no growth, sputum Normal sergio ( gram positive cocci in pairs and Yeast. She is doing very well now but her Hgb dropped, her blood type and cross was done and wanted to give 1 unit of blood but she has too many antibodies and blood will not be available until Saturday(07/24), She will go home today and will follow with PMD on Saturday ( 07/23) and if the hgb stay low then PMD can send her to [facility] for blood transfusion on Saturday. Pt agreed with the plan and I have discussed with her repeatedly. Pt will go home of Ciprofloxacin 250 mg BID x 7 days - Patient Data Vitals - Most Recent: Last Vital Signs Temp 36.7 C 07/21/16 12:00 Pulse 90 07/21/16 12:00 Resp 20 07/21/16 12:00 BP 126/70 07/21/16 12:00 Pulse Ox 95 07/21/16 12:00 Weight - Most Recent: 45.983 kg I&O - Last 24 hours: Intake & Output 07/20/16 07/21/16 07/21/16 22:59 06:59 14:59 Intake Total 240 295 Balance 240 295 Lab Results - Last 24 hrs: Laboratory Results - last 24 hr 07/20/16 07/20/16 07/21/16 Range/Units 16:54 20:42 06:08 WBC (5.0-10.0) 10^3/uL RBC (4.2-5.4) 10^6/uL Hgb (12.0-16.0) g/dL Hct (37.0-47.0) % MCV (80-100) fL MCH (27.0-34.0) pg MCHC (33.0-35.0) g/dL Plt Count (150-450) 10^3/uL Neut % (Auto) (42.2-75.2) % Lymph % (Auto) (20.5-50.1) % [place] % (Auto) (2-8) % Eos % (Auto) (1.0-3.0) % Baso % (Auto) (0.0-1.0) % Sodium (135-145) mmol/L Potassium (3.6-5.0) mmol/L Chloride (101-111) mmol/L Carbon Dioxide (21.0-31.0) mmol/L Anion Gap BUN (7-18) mg/dL Creatinine (0.6-1.3) mg/dL Est Cr Clr Drug Dosing mL/min Estimated GFR (MDRD) Glucose (74-105) mg/dL POC Glucose 250 H 212 H (70-105) mg/dl Calcium (8.4-10.2) mg/dl Blood Type O POSITIVE Gel Antibody Screen Positive 07/21/16 07/21/16 07/21/16 Range/Units 06:28 06:28 07:52 WBC 8.2 (5.0-10.0) 10^3/uL RBC 3.36 L (4.2-5.4) 10^6/uL Hgb 8.9 L (12.0-16.0) g/dL Hct 27.7 L (37.0-47.0) % MCV 82.4 (80-100) fL MCH 26.5 L (27.0-34.0) pg MCHC 32.1 L (33.0-35.0) g/dL Plt Count 125 L (150-450) 10^3/uL Neut % (Auto) 70.2 (42.2-75.2) % Lymph % (Auto) 21.6 (20.5-50.1) % [place] % (Auto) 7.4 (2-8) % Eos % (Auto) 0.7 L (1.0-3.0) % Baso % (Auto) 0.1 (0.0-1.0) % Sodium 141 (135-145) mmol/L Potassium 4.0 (3.6-5.0) mmol/L Chloride 110 (101-111) mmol/L Carbon Dioxide 25.0 (21.0-31.0) mmol/L Anion Gap 10.0 BUN 6 L (7-18) mg/dL Creatinine 0.6 (0.6-1.3) mg/dL Est Cr Clr Drug Dosing 73.28 mL/min Estimated GFR (MDRD) > 60 Glucose 87 (74-105) mg/dL POC Glucose 99 (70-105) mg/dl Calcium 7.9 L (8.4-10.2) mg/dl Blood Type Gel Antibody Screen 07/21/16 Range/Units 11:45 WBC (5.0-10.0) 10^3/uL RBC (4.2-5.4) 10^6/uL Hgb (12.0-16.0) g/dL Hct (37.0-47.0) % MCV (80-100) fL MCH (27.0-34.0) pg MCHC (33.0-35.0) g/dL Plt Count (150-450) 10^3/uL Neut % (Auto) (42.2-75.2) % Lymph % (Auto) (20.5-50.1) % [place] % (Auto) (2-8) % Eos % (Auto) (1.0-3.0) % Baso % (Auto) (0.0-1.0) % Sodium (135-145) mmol/L Potassium (3.6-5.0) mmol/L Chloride (101-111) mmol/L Carbon Dioxide (21.0-31.0) mmol/L Anion Gap BUN (7-18) mg/dL Creatinine (0.6-1.3) mg/dL Est Cr Clr Drug Dosing mL/min Estimated GFR (MDRD) Glucose (74-105) mg/dL POC Glucose 148 H (70-105) mg/dl Calcium (8.4-10.2) mg/dl Blood Type Gel Antibody Screen Med Orders - Current: Current Medications Acetaminophen (Tylenol) 650 mg PO Q4H PRN PRN Reason: Pain (Mild 1-3)/fever Last Admin: 07/19/16 02:45 Dose: 650 mg Acetaminophen (Tylenol) 325 mg PO Q4H PRN PRN Reason: Pain Last Admin: 07/20/16 14:00 Dose: 325 mg Albuterol/Ipratropium (Duoneb 3.0-0.5 Mg/3 Ml) 3 ml NEB TIDRT [facility] Last Admin: 07/21/16 09:53 Dose: 3 ml Aspirin (Ecotrin) 325 mg PO DAILY [facility] Last Admin: 07/21/16 09:24 Dose: 325 mg Benzonatate (Tessalon Perles) 100 mg PO TID PRN PRN Reason: Cough Last Admin: 07/21/16 03:24 Dose: 100 mg Clopidogrel Bisulfate (Plavix) 75 mg PO DAILY [facility] Last Admin: 07/21/16 09:25 Dose: 75 mg Digoxin (Lanoxin) 125 mcg PO DAILY@0800 [facility] Last Admin: 07/21/16 09:24 Dose: 125 mcg Folic Acid (Folic Acid) 1 mg PO DAILY [facility] Last Admin: 07/21/16 09:25 Dose: 1 mg Gabapentin (Neurontin) 1,200 mg PO TID [facility] Last Admin: 07/21/16 09:26 Dose: 1,200 mg Guaifenesin (Robitussin) 100 mg PO Q6H PRN PRN Reason: Cough Last Admin: 07/21/16 09:45 Dose: 100 mg Heparin Sodium (Porcine) (Heparin Sodium) 5,000 units SUBCUT Q8HR [facility] Last Admin: 07/21/16 05:31 Dose: 5,000 units Hydroxychloroquine Sulfate (Plaquenil) 200 mg PO BID [facility] Last Admin: 07/21/16 09:24 Dose: 200 mg Azithromycin 500 mg/ Sodium (Chloride) 250 mls @ 250 mls/hr IV Q24H [facility] Last Admin: 07/20/16 22:40 Dose: 250 mls/hr Ceftriaxone Sodium 1 gm/ (Sodium Chloride) 50 mls @ 100 mls/hr IV Q24H [facility] Last Admin: 07/21/16 00:15 Dose: 100 mls/hr Insulin Aspart (Novolog) 0 unit SUBCUT ACBED [facility] PRN Reason: Protocol Last Admin: 07/21/16 12:46 Dose: Not Given Levothyroxine Sodium (Levothyroxine) 75 mcg PO ACBREAKFAST [facility] Last Admin: 07/21/16 05:31 Dose: 75 mcg Levothyroxine Sodium (Synthroid) 100 mcg PO ACBREAKFAST [facility] Last Admin: 07/21/16 05:30 Dose: 100 mcg Nicotine (Habitrol) 14 mg TRDERM DAILY [facility] Last Admin: 07/21/16 09:27 Dose: 14 mg Leflunomide 10 Mg (Own Med) 10 mg PO DAILY [facility] Last Admin: 07/21/16 09:30 Dose: 10 mg Oxycodone HCl (Oxycodone) 10 mg PO Q4H PRN PRN Reason: Pain Last Admin: 07/21/16 05:31 Dose: 10 mg Oxycodone/Acetaminophen (Percocet 325-5 Mg) 1 tab PO Q6H PRN PRN Reason: PAIN Last Admin: 07/21/16 05:32 Dose: 1 tab Pantoprazole Sodium (Protonix) 40 mg PO ACBREAKFAST [facility] Last Admin: 07/21/16 05:31 Dose: 40 mg Prednisone (Prednisone) 10 mg PO DAILY [facility] Last Admin: 07/21/16 09:27 Dose: 10 mg Simvastatin (Zocor) 20 mg PO BEDTIME [facility] Last Admin: 07/20/16 22:08 Dose: 20 mg Sodium Chloride (Saline Flush) 10 ml FLUSH ASDIRECTED PRN PRN Reason: Keep Vein Open Sodium Chloride (Saline Flush) 10 ml FLUSH ASDIRECTED PRN PRN Reason: Keep Vein Open Discontinued Medications Albuterol/Ipratropium (Duoneb 3.0-0.5 Mg/3 Ml) 3 ml NEB ONETIME ONE Stop: 07/18/16 18:29 Last Admin: 07/18/16 18:38 Dose: 3 ml Azithromycin (Zithromax) Confirm Administered Dose 500 mg .ROUTE .STK-MED ONE Stop: 07/18/16 22:06 Last Admin: 07/18/16 23:37 Dose: Not Given Sodium Chloride (Normal Saline) 1,000 mls @ 75 mls/hr IV ASDIRECTED [facility] Last Infusion: 07/20/16 22:28 Dose: 75 mls/hr Insulin Aspart (Novolog) 0 unit SUBCUT .[facility] PRN Reason: Protocol Insulin Aspart (Novolog) 0 unit SUBCUT .[facility] PRN Reason: Protocol Last Admin: 07/19/16 08:26 Dose: 4 units Iopamidol (Isovue-370 (76%)) 100 ml IVPUSH ONETIME ONE Stop: 07/18/16 19:22 Last Admin: 07/18/16 19:52 Dose: 51 ml Levothyroxine Sodium (Synthroid) 100 mcg PO ACBREAKFAST [facility] Levothyroxine Sodium (Synthroid) 100 mcg PO ACBREAKFAST [facility] Last Admin: 07/19/16 11:49 Dose: Not Given Lisinopril (Prinivil) 5 mg PO DAILY [facility] Last Admin: 07/19/16 08:43 Dose: Not Given Oxycodone HCl (Oxycontin) 10 mg PO Q12HR [facility] Oxycodone HCl (Oxycodone) 5 mg PO Q6H PRN PRN Reason: PAIN Last Admin: 07/18/16 22:40 Dose: 5 mg Oxycodone HCl (Oxycodone) 5 mg PO ONETIME ONE Stop: 07/18/16 23:01 Last Admin: 07/18/16 23:21 Dose: 5 mg Oxycodone HCl (Oxycodone) 10 mg PO Q6H PRN PRN Reason: Pain *Q Meaningful Use (DIS) - VTE *Q VTE Criteria *Q: - Stroke *Q Stroke Criteria *Q: - AMI *Q AMI Criteria *Q:
== END 2016-07-21 13:50 | disposition home or self-care (01) | DRG 191 ==
LOC: DL.ED 17:54 → UNDOADMOB 20:58 → INTOOBSV 20:58 → DL.MS 20:58 → OBSVTOIN 07-19 12:01
PROVIDERS: ADMIT Internal Medicine; ATTEND Internal Medicine
DX: J40 Bronchitis, not specified as acute or chronic (principal); J44.0 Chronic obstructive pulmonary disease with (acute) lower respiratory infection; E87.1 Hypo-osmolality and hyponatremia; J20.9 Acute bronchitis, unspecified; E11.9 Type 2 diabetes mellitus without complications; M06.9 Rheumatoid arthritis, unspecified; D72.829 Elevated white blood cell count, unspecified; I25.10 Atherosclerotic heart disease of native coronary artery without angina pectoris; J44.9 Chronic obstructive pulmonary disease, unspecified; I50.9 Heart failure, unspecified; E78.00 Pure hypercholesterolemia, unspecified; I10 Essential (primary) hypertension; E03.9 Hypothyroidism, unspecified; I25.2 Old myocardial infarction; F17.200 Nicotine dependence, unspecified, uncomplicated; Z88.0 Allergy status to penicillin; Z88.8 Allergy status to other drugs, medicaments and biological substances; Z79.899 Other long term (current) drug therapy; Z95.1 Presence of aortocoronary bypass graft; Z79.82 Long term (current) use of aspirin
CPT/HCPCS: 36415 ×2; 71020; 71260; 80048; 80053; 80305; 81001; 82962 ×2; 83605; 84484 ×2; 85025 ×2; 85379; 87040 ×2; 87070; 87205; 93005; 94640 ×2; 96361; 96365; 96367; 96375; 96376; 99285; A9270 ×17; G0378; G0480; J0456; J0696; J1644 ×2; J1815; J7030; J7050 ×2; Q9967 ×2; 86850; 86870; 86900; 86901

== ENCOUNTER 2017-05-15 00:09 | Emergency (ER) | payer MEDICAID, OTHER ==
--- NOTE | 2017-05-15 00:42 | EDM.PDOC ---
ED HPI GENERAL MEDICAL PROBLEM - General Chief Complaint: Respiratory Problem Stated Complaint: SICK [id number] Time Seen by Provider: 05/15/17 00:35 Source of Information: Reports: Patient, Old Records, RN, RN Notes Reviewed History Limitations: Reports: No Limitations - History of Present Illness INITIAL COMMENTS - FREE TEXT/NARRATIVE: Tawny is a 61 yo F who presents to the ED due to shortness of breath. She reports that has has been "short of breath all my life" worse over the last 2 days. She reports productive cough with green sputum. Denies fever, chills, nausea, vomiting, or chest pain. She reports that she was recently diagnosed with COPD and started on some new inhalers which seemed to help up until a couple days ago. She reports upper abd pain due to coughing. Onset: Gradual (Worsening over the last couple days ) Location: Reports: Chest Severity: Moderate Improves with: Reports: Rest Worsens with: Reports: Breathing, Movement Associated Symptoms: Reports: cough w sputum, Shortness of Breath Generalized Pain Score (Numeric/FACES): 8 - Related Data Allergies Allergy/AdvReac Type Severity Reaction Status Date / Time codeine Allergy Vomiting Verified 05/15/17 00:25 morphine Allergy Rash Verified 05/15/17 00:25 Penicillins Allergy Hives Verified 05/15/17 00:25 Home Meds: Home Meds Aspirin [Ecotrin] 325 mg PO DAILY 01/15/16 [History] Clopidogrel [Plavix] 75 mg PO DAILY 01/15/16 [History] Digoxin 125 mcg PO DAILY 01/15/16 [History] Folic Acid 1 mg PO DAILY 01/15/16 [History] Gabapentin [Neurontin] 1,200 mg PO TID 01/15/16 [History] Hydroxychloroquine [Plaquenil] 200 mg PO BID 01/15/16 [History] Leflunomide [Arava] 10 mg PO DAILY 01/15/16 [History] Levothyroxine 175 mcg PO ACBRK 01/15/16 [History] Lisinopril [Prinivil] 5 mg PO DAILY 01/15/16 [History] Pantoprazole [ProTONIX] 40 mg PO ACBREAKFAST 01/15/16 [History] Simvastatin [Zocor] 20 mg PO BEDTIME 01/15/16 [History] metFORMIN [Glucophage] 1,000 mg PO BIDMEALS 01/15/16 [History] oxyCODONE HCl/Acetaminophen [Percocet 10-325 mg Tablet] 10 mg PO Q4HR PRN [History] Benzonatate [Tessalon Perles] 100 mg PO TID PRN #21 cap 01/19/16 [Rx] Prednisone [IJD: Prednisone] 10 mg PO DAILY #20 tab 01/19/16 [Rx] Albuterol Sulfate 3 ml INH BID 05/15/17 [History] Albuterol Sulfate [Ventolin Hfa] 18 gm IH Q4HR PRN 05/15/17 [History] Past Medical History HEENT History: Reports: Impaired Vision Cardiovascular History: Reports: CAD, Heart Failure, High Cholesterol, Hypertension, [place] Respiratory History: Reports: COPD, Other (See Below) 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 Gastrointestinal History: Reports: Other (See Below) Other Gastrointestinal History: aneurysm Genitourinary History: Reports: None [employer] History: Reports: Musculoskeletal History: Reports: RA Neurological History: Reports: None Psychiatric History: Reports: None Endocrine/Metabolic History: Reports: Diabetes, Type II, Hypothyroidism Hematologic History: Reports: None Immunologic History: Reports: None Oncologic (Cancer) History: Reports: None Dermatologic History: Reports: None - Infectious Disease History Infectious Disease History: Reports: None - Past Surgical History GI Surgical History: Reports: Cholecystectomy Female Surgical History: Reports: Hysterectomy Other Musculoskeletal Surgeries/Procedures:: hand surgery Social & Family History - Family History Family Medical History: Noncontributory - Tobacco Use Smoking Status *Q: Current Every Day Smoker Years of Tobacco use: 30 Packs/Tins Daily: 1 Second Hand Smoke Exposure: Yes - Caffeine Use Caffeine Use: Reports: Coffee, Soda - Alcohol Use Days Per Week of Alcohol Use: 0 - Recreational Drug Use Recreational Drug Use: No - Living Situation & Occupation Living situation: Reports: with Family Occupation: Disabled ED ROS GENERAL - Review of Systems Review Of Systems: ROS reveals no pertinent complaints other than HPI. ED EXAM, GENERAL - Physical Exam Exam: See Below Exam Limited By: No Limitations General Appearance: Alert, WD/WN, No Apparent Distress Eye Exam: Bilateral Eye: PERRL Ears: Normal External Exam, Normal Canal, Hearing Grossly Normal, Normal TMs Ear Exam: Bilateral Ear: Auricle Normal, Canal Normal, TM normal Nose: Normal Inspection, Normal Mucosa, No Blood Throat/Mouth: Normal Inspection, Normal Lips, Normal Teeth, Normal Gums, Normal Oropharynx, Normal Voice, No Airway Compromise Head: Atraumatic, Normocephalic Neck: Normal Inspection, Supple, Non-Tender, Full Range of Motion Respiratory/Chest: No Accessory Muscle Use, Decreased Breath Sounds, Crackles, Rhonchi, Wheezing Cardiovascular: Normal Peripheral Pulses, Regular Rate, Rhythm, No Edema, No Gallop, No JVD, No Murmur, No Rub GI/Abdominal: Normal Bowel Sounds, Soft, Non-Tender, No Organomegaly, No Distention, No Abnormal Bruit, No Mass (Female) Exam: Deferred Rectal (Female) Exam: Deferred Back Exam: Normal Inspection, Full Range of Motion, NT Extremities: Normal Inspection, Normal Range of Motion, Non-Tender, Normal Capillary Refill, No Pedal Edema Neurological: Alert, Oriented, CN II-XII Intact, Normal Cognition, Normal Gait, Normal Reflexes, No Motor/Sensory Deficits Psychiatric: Normal Affect, Normal Mood Skin Exam: Warm, Dry, Intact, Normal Color, No Rash Lymphatic: No Adenopathy Course - Vital Signs Last Recorded V/S: Last Vital Signs Temp 98.8 F 05/15/17 00:15 Pulse 105 H 05/15/17 00:18 Resp 20 05/15/17 00:15 BP 131/76 05/15/17 00:15 Pulse Ox 97 05/15/17 00:18 - Orders/Labs/Meds Orders: Active Orders 24 hr Category Date Time Status CULTURE BLOOD [BC] Stat Lab 05/15/17 00:35 Received CULTURE BLOOD [BC] Stat Lab 05/15/17 00:45 Received Blood Culture x2 Reflex Set [OM.PC] Stat Oth 05/15/17 00:36 Ordered Labs: Laboratory Tests 05/15/17 05/15/17 05/15/17 Range/Units 00:35 00:35 00:35 WBC 18.0 H (5.0-10.0) 10^3/uL RBC 4.38 (4.2-5.4) 10^6/uL Hgb 11.6 L D (12.0-16.0) g/dL Hct 35.7 L (37.0-47.0) % MCV 81.5 (80-100) fL MCH 26.5 L (27.0-34.0) pg MCHC 32.5 L (33.0-35.0) g/dL Plt Count 181 (150-450) 10^3/uL Neut % (Auto) 82.5 H (42.2-75.2) % Lymph % (Auto) 12.8 L (20.5-50.1) % [place] % (Auto) 4.0 (2-8) % Eos % (Auto) 0.6 L (1.0-3.0) % Baso % (Auto) 0.1 (0.0-1.0) % Add Manual Diff Yes Neutrophils % (Manual) 80 H (42-75) % Lymphocytes % (Manual) 14 L (20-50) % Monocytes % (Manual) 5 (2-8) % Eosinophils % (Manual) 1 (1-3) % Sodium 131 L D (135-145) mmol/L Potassium 3.5 L (3.6-5.0) mmol/L Chloride 102 (101-111) mmol/L Carbon Dioxide 24.0 (21.0-31.0) mmol/L Anion Gap 8.5 BUN 12 (7-18) mg/dL Creatinine 0.8 (0.6-1.3) mg/dL Est Cr Clr Drug Dosing 58.90 mL/min Estimated GFR (MDRD) > 60 BUN/Creatinine Ratio 15.00 Glucose 151 H (74-105) mg/dL Lactic Acid 0.9 (0.5-2.2) mmol/L Calcium 7.8 L (8.4-10.2) mg/dl Total Bilirubin 0.5 (0.2-1.0) mg/dL AST 22 (10-42) IU/L ALT 16 (10-60) IU/L Alkaline Phosphatase 88 (42-121) IU/L B-Natriuretic Peptide 392 H (0-100) pg/ml Total Protein 7.2 (6.7-8.2) g/dl Albumin 2.8 L (3.2-5.5) g/dl Globulin 4.4 Albumin/Globulin Ratio 0.64 Departure - Departure Time of Disposition: 01:30 Disposition: Home, Self-Care 01 Condition: Fair Clinical Impression: Pneumonia Qualifiers: Pneumonia type: due to unspecified organism Laterality: right Lung location: lower lobe of lung Qualified Code(s): J18.1 - Lobar pneumonia, unspecified organism - Discharge Information Instructions: Community-Acquired Pneumonia, Adult, [id number], Steps to Quit Smoking, [id number] Forms: ED Department Discharge Care Plan Goals: Labs and xrays reviewed with patient Push fluids. RX for Levaquin and prednisone Follow-up with your primary care facility later this week Return for increased shortness of breath, fever, or any other concerns. Patient verbalizes understanding. Denies any further questions or concerns at this time.
[2017-05-15 01:06] LABS: CHLORIDE,CL 102 mmol/L (101-111); SODIUM,NA 131 mmol/L (135-145)
[2017-05-15] MEDS ORDERED: predniSONE 20 MG Tab PO ONE (01:28)
[2017-05-15] MEDS ORDERED: Levofloxacin 500 MG Tab PO ONE (01:28)
[2017-05-15 01:41] VITALS: BP 113/61
== END 2017-05-15 01:45 | disposition home or self-care (01) ==
LOC: DL.ED 00:09
DX: J18.9 Pneumonia, unspecified organism (principal); I11.0 Hypertensive heart disease with heart failure; I50.9 Heart failure, unspecified; I25.2 Old myocardial infarction; E11.9 Type 2 diabetes mellitus without complications; E03.9 Hypothyroidism, unspecified; J44.9 Chronic obstructive pulmonary disease, unspecified; Z88.5 Allergy status to narcotic agent; Z88.0 Allergy status to penicillin; Z79.82 Long term (current) use of aspirin; Z79.899 Other long term (current) drug therapy
CPT/HCPCS: 36415; 71046; 80053; 83605; 83880; 85025; 87040; 99283; A9270

== ENCOUNTER 2017-05-30 02:40 | Emergency (ER) | payer MEDICAID, OTHER ==
[2017-05-30] MEDS: Albuterol/Ipratropium 3.0-0.5 MG/3 ML Neb Soln NEB ONE (03:20)
[2017-05-30 03:38] LABS: CHLORIDE,CL 102 mmol/L (101-111); SODIUM,NA 133 mmol/L (135-145)
[2017-05-30] MEDS: methylPREDNISolone Sodium Succinate 125 MG/2 ML SDV IVPUSH ONE (04:13)
[2017-05-30] MEDS: Doxycycline 100 MG Cap PO ONE (04:14)
--- NOTE | 2017-05-30 04:36 | EDM.PDOC ---
ED HPI GENERAL MEDICAL PROBLEM - General Chief Complaint: Respiratory Problem Stated Complaint: SICK [id number] Time Seen by Provider: 05/30/17 02:50 Source of Information: Reports: Patient, RN Notes Reviewed History Limitations: Reports: No Limitations - History of Present Illness INITIAL COMMENTS - FREE TEXT/NARRATIVE: Ed with c/o cough. Reports seen in ER 2 weeks ago and given antibiotic, felt better for a few days then worse again. Clinic appointment for upcoming Saturday. Hx RA. Last Neb early alma. Feels like fever tonight. Sputum white. Continues to smoke Upper Back Pain Score (Numeric/FACES): 8 - Related Data Allergies Allergy/AdvReac Type Severity Reaction Status Date / Time codeine Allergy Vomiting Verified 05/30/17 02:48 morphine Allergy Rash Verified 05/30/17 02:48 Penicillins Allergy Hives Verified 05/30/17 02:48 Home Meds: Home Meds Aspirin [Ecotrin] 325 mg PO DAILY 01/15/16 [History] Clopidogrel [Plavix] 75 mg PO DAILY 01/15/16 [History] Digoxin 125 mcg PO DAILY 01/15/16 [History] Folic Acid 1 mg PO DAILY 01/15/16 [History] Hydroxychloroquine [Plaquenil] 200 mg PO BID 01/15/16 [History] Levothyroxine 175 mcg PO ACBRK 01/15/16 [History] Lisinopril [Prinivil] 5 mg PO DAILY 01/15/16 [History] Pantoprazole [ProTONIX] 40 mg PO ACBREAKFAST 01/15/16 [History] Simvastatin [Zocor] 20 mg PO BEDTIME 01/15/16 [History] metFORMIN [Glucophage] 1,000 mg PO BIDMEALS 01/15/16 [History] oxyCODONE HCl/Acetaminophen [Percocet 10-325 mg Tablet] 10 mg PO Q4HR PRN [History] Albuterol Sulfate 3 ml INH BID 05/15/17 [History] Albuterol Sulfate [Ventolin Hfa] 18 gm IH Q4HR PRN 05/15/17 [History] Prednisone [IJD: Prednisone] 10 mg PO ASDIRECTED 05/30/17 [History] Pregabalin [Lyrica] 150 mg PO TID 05/30/17 [History] Past Medical History HEENT History: Reports: Impaired Vision Cardiovascular History: Reports: CAD, Heart Failure, High Cholesterol, Hypertension, [place] Respiratory History: Reports: COPD, Other (See Below) 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 Gastrointestinal History: Reports: Other (See Below) Other Gastrointestinal History: aneurysm Genitourinary History: Reports: None 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: Musculoskeletal History: Reports: RA Neurological History: Reports: None Psychiatric History: Reports: None Endocrine/Metabolic History: Reports: Diabetes, Type II, Hypothyroidism Hematologic History: Reports: None Immunologic History: Reports: None Oncologic (Cancer) History: Reports: None Dermatologic History: Reports: None - Infectious Disease History Infectious Disease History: Reports: None - Past Surgical History GI Surgical History: Reports: Cholecystectomy Female Surgical History: Reports: Hysterectomy Other Musculoskeletal Surgeries/Procedures:: hand surgery Social & Family History - Family History Family Medical History: Noncontributory - Tobacco Use Smoking Status *Q: Current Every Day Smoker Years of Tobacco use: 45 Packs/Tins Daily: 0.6 Second Hand Smoke Exposure: Yes - Caffeine Use Caffeine Use: Reports: Coffee, Soda - Alcohol Use Days Per Week of Alcohol Use: 0 - Recreational Drug Use Recreational Drug Use: No - Living Situation & Occupation Living situation: Reports: with Family Occupation: Disabled ED ROS GENERAL - Review of Systems Review Of Systems: See Below Constitutional: Reports: Fever HEENT: Reports: No Symptoms Respiratory: Reports: Shortness of Breath, Cough, Sputum Cardiovascular: Reports: No Symptoms GI/Abdominal: Reports: No Symptoms Skin: Reports: No Symptoms Neurological: Reports: No Symptoms ED EXAM, GENERAL - Physical Exam Exam: See Below Exam Limited By: No Limitations General Appearance: Alert, No Apparent Distress, Thin Eye Exam: Bilateral Eye: EOMI Ears: Normal External Exam, Normal TMs Nose: Normal Inspection Throat/Mouth: Normal Inspection Head: Atraumatic, Normocephalic Neck: Normal Inspection Respiratory/Chest: Rhonchi, Wheezing. No: Retractions, Splinting Cardiovascular: Normal Peripheral Pulses, Regular Rate, Rhythm GI/Abdominal: Normal Bowel Sounds, Soft Extremities: Other (Arthritic deformities of hands) Neurological: Alert, Oriented, Normal Cognition Skin Exam: Warm, Dry, Intact, Normal Color Course - Vital Signs Last Recorded V/S: Last Vital Signs Temp 100 F 05/30/17 02:42 Pulse 106 H 05/30/17 02:42 Resp 18 05/30/17 02:42 BP 133/73 05/30/17 02:42 Pulse Ox 97 05/30/17 02:42 - Orders/Labs/Meds Orders: Active Orders 24 hr Category Date Time Status EKG 12 Lead [EKG Documentation Completion] [RC] URGENT Care 05/30/17 03:03 Active RT Aerosol Therapy [RC] ASDIRECTED Care 05/30/17 03:14 Active Chest 2V [CR] Urgent Exams 05/30/17 03:03 Taken CULTURE BLOOD [BC] Stat Lab 05/30/17 03:03 Received CULTURE BLOOD [BC] Stat Lab 05/30/17 03:38 Received Labs: Laboratory Tests 05/30/17 05/30/17 05/30/17 Range/Units 03:03 03:03 03:03 WBC 16.1 H (5.0-10.0) 10^3/uL RBC 4.54 (4.2-5.4) 10^6/uL Hgb 12.0 (12.0-16.0) g/dL Hct 37.2 (37.0-47.0) % MCV 81.9 (80-100) fL MCH 26.4 L (27.0-34.0) pg MCHC 32.3 L (33.0-35.0) g/dL Plt Count 204 (150-450) 10^3/uL Neut % (Auto) 88.8 H (42.2-75.2) % Lymph % (Auto) 7.3 L (20.5-50.1) % [place] % (Auto) 3.2 (2-8) % Eos % (Auto) 0.6 L (1.0-3.0) % Baso % (Auto) 0.1 (0.0-1.0) % Sodium 133 L (135-145) mmol/L Potassium 3.6 (3.6-5.0) mmol/L Chloride 102 (101-111) mmol/L Carbon Dioxide 23.0 (21.0-31.0) mmol/L Anion Gap 11.6 BUN 8 (7-18) mg/dL Creatinine 0.6 (0.6-1.3) mg/dL Est Cr Clr Drug Dosing 74.97 mL/min Estimated GFR (MDRD) > 60 BUN/Creatinine Ratio 13.33 Glucose 174 H (74-105) mg/dL Lactic Acid 1.5 (0.5-2.2) mmol/L Calcium 8.4 (8.4-10.2) mg/dl Total Bilirubin 0.7 (0.2-1.0) mg/dL AST 34 (10-42) IU/L ALT 21 (10-60) IU/L Alkaline Phosphatase 81 (42-121) IU/L Troponin I < 0.02 (0.00-0.02) ng/ml B-Natriuretic Peptide 208 H (0-100) pg/ml Total Protein 7.8 (6.7-8.2) g/dl Albumin 3.0 L (3.2-5.5) g/dl Globulin 4.8 Albumin/Globulin Ratio 0.63 Amylase 29 (28-100) U/L Digoxin (0-2.5) ng/ml 05/30/17 Range/Units 03:03 WBC (5.0-10.0) 10^3/uL RBC (4.2-5.4) 10^6/uL Hgb (12.0-16.0) g/dL Hct (37.0-47.0) % MCV (80-100) fL MCH (27.0-34.0) pg MCHC (33.0-35.0) g/dL Plt Count (150-450) 10^3/uL Neut % (Auto) (42.2-75.2) % Lymph % (Auto) (20.5-50.1) % [place] % (Auto) (2-8) % Eos % (Auto) (1.0-3.0) % Baso % (Auto) (0.0-1.0) % Sodium (135-145) mmol/L Potassium (3.6-5.0) mmol/L Chloride (101-111) mmol/L Carbon Dioxide (21.0-31.0) mmol/L Anion Gap BUN (7-18) mg/dL Creatinine (0.6-1.3) mg/dL Est Cr Clr Drug Dosing mL/min Estimated GFR (MDRD) BUN/Creatinine Ratio Glucose (74-105) mg/dL Lactic Acid (0.5-2.2) mmol/L Calcium (8.4-10.2) mg/dl Total Bilirubin (0.2-1.0) mg/dL AST (10-42) IU/L ALT (10-60) IU/L Alkaline Phosphatase (42-121) IU/L Troponin I (0.00-0.02) ng/ml B-Natriuretic Peptide (0-100) pg/ml Total Protein (6.7-8.2) g/dl Albumin (3.2-5.5) g/dl Globulin Albumin/Globulin Ratio Amylase (28-100) U/L Digoxin 0.5 (0-2.5) ng/ml Meds: Medications Discontinued Medications Generic Name Dose Route Start Last Admin Trade Name Freq PRN Reason Stop Dose Admin Albuterol/Ipratropium 3 ml 05/30/17 03:14 05/30/17 03:20 Duoneb 3.0-0.5 Mg/3 Ml NEB 05/30/17 03:15 3 ml ONETIME ONE Administration Doxycycline Hyclate 100 mg 05/30/17 04:05 05/30/17 04:14 Vibramycin PO 05/30/17 04:06 100 mg ONETIME ONE Administration Methylprednisolone Sodium Succinate 125 mg 05/30/17 03:53 05/30/17 04:13 Solu-Medrol IVPUSH 05/30/17 03:54 125 mg ONETIME ONE Administration Departure - Departure Time of Disposition: 04:42 Disposition: Home, Self-Care 01 Condition: Good Clinical Impression: Bronchitis, COLD, Chronic obstructive lung disease - Discharge Information Instructions: Chronic Bronchitis Forms: ED Department Discharge Additional Instructions: Albuterol Nebulizer every 4 hours as needed Robitussin 5ml every 4 hours as needed to aid in loosening sputum Doxycline 100mg one twice daily for one week Follow with Primary care as scheduled, sooner if symptoms worsen - My Orders Last 24 Hours: My Active Orders 05/30/17 03:03 EKG 12 Lead [EKG Documentation Completion] [RC] URGENT Chest 2V [CR] Urgent CULTURE BLOOD [BC] Stat 05/30/17 03:14 RT Aerosol Therapy [RC] ASDIRECTED 05/30/17 03:38 CULTURE BLOOD [BC] Stat - Assessment/Plan Last 24 Hours: My Active Orders 05/30/17 03:03 EKG 12 Lead [EKG Documentation Completion] [RC] URGENT Chest 2V [CR] Urgent CULTURE BLOOD [BC] Stat 05/30/17 03:14 RT Aerosol Therapy [RC] ASDIRECTED 05/30/17 03:38 CULTURE BLOOD [BC] Stat
[2017-05-30 04:43] VITALS: BP 100/51
--- NOTE | 2017-06-03 10:08 | EKG ---
05/30/2017- PEGGY FERNANDES - EKG, per my reading, shows sinus rhythm at the rate of 90s, inferior Q-waves. [facility] /[id number]
== END 2017-05-30 04:46 | disposition home or self-care (01) ==
LOC: DL.ED 02:40
DX: J44.9 Chronic obstructive pulmonary disease, unspecified (principal); E11.9 Type 2 diabetes mellitus without complications; I25.2 Old myocardial infarction; I11.0 Hypertensive heart disease with heart failure; I50.9 Heart failure, unspecified; F17.210 Nicotine dependence, cigarettes, uncomplicated; Z88.5 Allergy status to narcotic agent; Z88.0 Allergy status to penicillin; Z79.899 Other long term (current) drug therapy; Z79.82 Long term (current) use of aspirin; Z79.84 Long term (current) use of oral hypoglycemic drugs
CPT/HCPCS: 36415; 71046; 80053; 80162; 82150; 83605; 83880; 84484; 85025; 87040; 93005; 94640; 96374; 99284; A9270-GY; J2930

== ENCOUNTER 2017-10-26 11:46 | Emergency (ER) | payer MEDICAID, OTHER ==
[2017-10-26 12:45] LABS: ANION GAP 14.6; CHLORIDE,CL 100 mmol/L (101-111); SODIUM,NA 133 mmol/L (135-145)
[2017-10-26] MEDS ORDERED: Albuterol/Ipratropium 3.0-0.5 MG/3 ML Neb Soln NEB ONE (13:30)
[2017-10-26 13:49] VITALS: BP 136/76
--- NOTE | 2017-10-26 14:49 | EDM.PDOC ---
Scribed by Sparkle Wahl 10/26/17 1917 for Rachell Kay NP ED HPI GENERAL MEDICAL PROBLEM - General Chief Complaint: Respiratory Problem Stated Complaint: [id number] FLU Time Seen by Provider: 10/26/17 12:09 Source of Information: Reports: Patient, RN, RN Notes Reviewed History Limitations: Reports: No Limitations - History of Present Illness INITIAL COMMENTS - FREE TEXT/NARRATIVE: Patient presented to ER with complaint of "bad cold". States she has been feeling sick x1 week. She complains of sweats, fever, chills, decreased appetite , cough with green/white sputum and shortness of breath, headache on and off. No nausea, vomiting, diarrhea, chest pain, runny nose and body aches. Onset: Gradual Duration: Constant Location: Reports: Generalized Quality: Reports: Ache Severity: Moderate Improves with: Reports: None Worsens with: Reports: None Associated Symptoms: Reports: No Other Symptoms - Related Data Allergies Allergy/AdvReac Type Severity Reaction Status Date / Time codeine Allergy Vomiting Verified 10/26/17 11:59 morphine Allergy Rash Verified 10/26/17 11:59 Penicillins Allergy Hives Verified 10/26/17 11:59 Home Meds: Home Meds Aspirin [Ecotrin] 325 mg PO DAILY 01/15/16 [History] Clopidogrel [Plavix] 75 mg PO DAILY 01/15/16 [History] Digoxin 125 mcg PO DAILY 01/15/16 [History] Folic Acid 1 mg PO DAILY 01/15/16 [History] Hydroxychloroquine [Plaquenil] 200 mg PO BID 01/15/16 [History] Levothyroxine 175 mcg PO ACBRK 01/15/16 [History] Lisinopril [Prinivil] 5 mg PO DAILY 01/15/16 [History] Pantoprazole [ProTONIX] 40 mg PO ACBREAKFAST 01/15/16 [History] Simvastatin [Zocor] 20 mg PO BEDTIME 01/15/16 [History] metFORMIN [Glucophage] 1,000 mg PO BIDMEALS 01/15/16 [History] oxyCODONE HCl/Acetaminophen [Percocet 10-325 mg Tablet] 10 mg PO Q4HR PRN [History] Albuterol Sulfate 3 ml INH BID 05/15/17 [History] Albuterol Sulfate [Ventolin Hfa] 18 gm IH Q4HR PRN 05/15/17 [History] Prednisone [IJD: Prednisone] 10 mg PO ASDIRECTED 05/30/17 [History] Pregabalin [Lyrica] 150 mg PO TID 05/30/17 [History] Past Medical History HEENT History: Reports: Impaired Vision Cardiovascular History: Reports: CAD, Heart Failure, High Cholesterol, Hypertension, [place] Respiratory History: Reports: COPD, Other (See Below) 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 Gastrointestinal History: Reports: Other (See Below) Other Gastrointestinal History: aneurysm Genitourinary History: Reports: None 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: Musculoskeletal History: Reports: RA Neurological History: Reports: None Psychiatric History: Reports: None Endocrine/Metabolic History: Reports: Diabetes, Type II, Hypothyroidism Hematologic History: Reports: None Immunologic History: Reports: None Oncologic (Cancer) History: Reports: None Dermatologic History: Reports: None - Infectious Disease History Infectious Disease History: Reports: None - Past Surgical History GI Surgical History: Reports: Cholecystectomy Female Surgical History: Reports: Hysterectomy Other Musculoskeletal Surgeries/Procedures:: hand surgery Social & Family History - Family History Family Medical History: Noncontributory - Tobacco Use Smoking Status *Q: Current Every Day Smoker Years of Tobacco use: 40 Packs/Tins Daily: 0.5 - Caffeine Use Caffeine Use: Reports: Coffee, Soda - Recreational Drug Use Recreational Drug Use: No - Living Situation & Occupation Living situation: Reports: with Family Occupation: Disabled ED ROS GENERAL - Review of Systems Review Of Systems: ROS reveals no pertinent complaints other than HPI. ED EXAM, GENERAL - Physical Exam Exam: See Below Exam Limited By: No Limitations General Appearance: Alert, WD/WN, No Apparent Distress Eye Exam: Bilateral Eye: EOMI, Normal Inspection, PERRL Ears: Normal External Exam, Normal Canal, Hearing Grossly Normal, Normal TMs Nose: Normal Inspection, Normal Mucosa, No Blood Throat/Mouth: Normal Inspection, Normal Lips, Normal Teeth, Normal Gums, Normal Oropharynx, Normal Voice, No Airway Compromise Head: Atraumatic, Normocephalic Neck: Normal Inspection, Supple, Non-Tender, Full Range of Motion Respiratory/Chest: Rales, Rhonchi, Wheezing (inspiratory and expiratory) Cardiovascular: Normal Peripheral Pulses, Regular Rate, Rhythm, No Edema, No Gallop, No JVD, No Murmur, No Rub GI/Abdominal: Normal Bowel Sounds, Soft, Non-Tender, No Organomegaly, No Distention, No Abnormal Bruit, No Mass (Female) Exam: Deferred Rectal (Female) Exam: Deferred Back Exam: Normal Inspection, Full Range of Motion, NT Extremities: Other (RA deformity of hands) Neurological: Alert, Oriented, CN II-XII Intact, Normal Cognition, Normal Gait, Normal Reflexes, No Motor/Sensory Deficits Psychiatric: Normal Affect, Normal Mood Skin Exam: Warm Lymphatic: No Adenopathy Course - Vital Signs Last Recorded V/S: Last Vital Signs Temp 97.4 F 10/26/17 13:48 Pulse 110 H 10/26/17 13:48 Resp 18 10/26/17 13:48 BP 136/76 10/26/17 13:48 Pulse Ox 90 L 10/26/17 13:48 - Orders/Labs/Meds Orders: Active Orders 24 hr Category Date Time Status RT Aerosol Therapy [RC] ASDIRECTED Care 10/26/17 13:31 Active CULTURE BLOOD [BC] Stat Lab 10/26/17 12:46 Received CULTURE BLOOD [BC] Stat Lab 10/26/17 12:49 Results Blood Culture x2 Reflex Set [OM.PC] Stat Oth 10/26/17 12:39 Ordered Labs: Laboratory Tests 10/26/17 10/26/17 10/26/17 Range/Units 12:20 12:20 12:46 WBC 18.6 H (5.0-10.0) 10^3/uL RBC 4.77 (4.2-5.4) 10^6/uL Hgb 12.9 (12.0-16.0) g/dL Hct 40.0 (37.0-47.0) % MCV 83.9 (80-100) fL MCH 27.0 (27.0-34.0) pg MCHC 32.3 L (33.0-35.0) g/dL Plt Count 177 (150-450) 10^3/uL Neut % (Auto) 82.6 H (42.2-75.2) % Lymph % (Auto) 8.2 L (20.5-50.1) % [place] % (Auto) 9.0 H (2-8) % Eos % (Auto) 0.1 L (1.0-3.0) % Baso % (Auto) 0.1 (0.0-1.0) % Add Manual Diff Yes Neutrophils % (Manual) 58 (42-75) % Band Neutrophils % 25 % Lymphocytes % (Manual) 8 L (20-50) % Monocytes % (Manual) 9 H (2-8) % Sodium 133 L (135-145) mmol/L Potassium 3.6 (3.6-5.0) mmol/L Chloride 100 L (101-111) mmol/L Carbon Dioxide 22.0 (21.0-31.0) mmol/L Anion Gap 14.6 BUN 9 (7-18) mg/dL Creatinine 0.7 (0.6-1.3) mg/dL Est Cr Clr Drug Dosing 64.66 mL/min Estimated GFR (MDRD) > 60 BUN/Creatinine Ratio 12.85 Glucose 134 H (74-105) mg/dL Lactic Acid 1.2 (0.5-2.2) mmol/L Calcium 8.1 L (8.4-10.2) mg/dl Total Bilirubin 0.6 (0.2-1.0) mg/dL AST 21 (10-42) IU/L ALT 13 (10-60) IU/L Alkaline Phosphatase 96 (42-121) IU/L Total Protein 7.9 (6.7-8.2) g/dl Albumin 3.2 (3.2-5.5) g/dl Globulin 4.7 Albumin/Globulin Ratio 0.68 Meds: Medications Discontinued Medications Generic Name Dose Route Start Last Admin Trade Name Freq PRN Reason Stop Dose Admin Albuterol/Ipratropium 3 ml 10/26/17 13:30 10/26/17 13:44 Duoneb 3.0-0.5 Mg/3 Ml NEB 10/26/17 13:31 Not Given ONETIME ONE - Radiology Interpretation Free Text/Narrative:: Chest xray: IMPRESSION: 1. Nonspecific bibasilar consolidation is present, consistent with atelectasis, edema, or pneumonia. 2. Atelectatic and/or infiltrative changes noted within the right midlung. Thank you for allowing us to participate in the care of your patient. See Rad report Departure - Departure Time of Disposition: 13:36 Disposition: Home, Self-Care 01 Condition: Fair Clinical Impression: COPD exacerbation Pneumonia Qualifiers: Pneumonia type: due to unspecified organism Laterality: right Lung location: lower lobe of lung Qualified Code(s): J18.1 - Lobar pneumonia, unspecified organism - Discharge Information *PRESCRIPTION DRUG MONITORING PROGRAM REVIEWED*: No *COPY OF PRESCRIPTION DRUG MONITORING REPORT IN PATIENT MARIUM: No Instructions: Chronic Obstructive Pulmonary Disease Exacerbation, [id number] , Chronic Obstructive Pulmonary Disease, [id number], Community-Acquired Pneumonia, Adult, [place] Referrals: PCP,Unobtain [Primary Care Provider] - Forms: ED Department Discharge Additional Instructions: RX: Liam Hammonds Follow up with your primary care facility - My Orders Last 24 Hours: My Active Orders 10/26/17 12:39 Blood Culture x2 Reflex Set [OM.PC] Stat 10/26/17 12:46 CULTURE BLOOD [BC] Stat 10/26/17 12:49 CULTURE BLOOD [BC] Stat 10/26/17 13:31 RT Aerosol Therapy [RC] ASDIRECTED - Assessment/Plan Last 24 Hours: My Active Orders 10/26/17 12:39 Blood Culture x2 Reflex Set [OM.PC] Stat 10/26/17 12:46 CULTURE BLOOD [BC] Stat 10/26/17 12:49 CULTURE BLOOD [BC] Stat 10/26/17 13:31 RT Aerosol Therapy [RC] ASDIRECTED I have read and agree with the documentation that has been completed regarding this visit. By signing this record, I attest that the documentation was completed in my physical presence and is an accurate record of the encounter.
== END 2017-10-26 13:54 | disposition home or self-care (01) ==
LOC: DL.ED 11:46
DX: J44.1 Chronic obstructive pulmonary disease with (acute) exacerbation (principal); J18.9 Pneumonia, unspecified organism; F17.210 Nicotine dependence, cigarettes, uncomplicated; I11.0 Hypertensive heart disease with heart failure; I50.9 Heart failure, unspecified; E11.9 Type 2 diabetes mellitus without complications; E78.00 Pure hypercholesterolemia, unspecified; E03.9 Hypothyroidism, unspecified; Z79.82 Long term (current) use of aspirin; Z79.84 Long term (current) use of oral hypoglycemic drugs; Z79.899 Other long term (current) drug therapy; Z88.5 Allergy status to narcotic agent; Z88.0 Allergy status to penicillin
CPT/HCPCS: 36415; 71046; 80053; 83605; 85025; 87040; 99283

== ENCOUNTER 2021-06-02 20:37 | Emergency (ER) | payer MEDICAID, OTHER ==
[2021-06-02] MEDS ORDERED: Albuterol 0.083% 2.5 MG/3 ML Neb Soln INH ONE (20:38)
[2021-06-02] MEDS ORDERED: Doxycycline Monohydrate 100 MG Cap PO ONE (20:38)
[2021-06-02] MEDS ORDERED: Sodium Chloride 0.9% 10 ML Syringe FLUSH PRN (20:46)
[2021-06-02] MEDS ORDERED: methylPREDNISolone Sodium Succinate 125 MG/2 ML SDV IVPUSH ONE (21:00)
[2021-06-02] MEDS ORDERED: Albuterol/Ipratropium 3.0-0.5 MG/3 ML Neb Soln NEB ONE ×2 (21:01→21:03)
[2021-06-02 21:33] LABS: O2 DELIVERY DEVICE ROOM AIR
[2021-06-02 21:39] LABS: CORONAVIRUS COVID-19 NAA NEGATIVE (NEGATIVE)
[2021-06-02 21:40] LABS: ANION GAP 16.8 mEq/L (7-13); CHLORIDE,CL 108 mmol/L (98-107); SODIUM,NA 145 mmol/L (136-145)
[2021-06-02] MEDS ORDERED: Sodium Chloride 0.9% 1,000 ML IV SCH (22:15)
[2021-06-02] MEDS ORDERED: Iopamidol 755 Mg/ML 100 ML Bottle IVPUSH ONE (22:40)
[2021-06-03] MEDS ORDERED: Doxycycline Monohydrate 100 MG Cap ONE (00:21)
[2021-06-03] MEDS ORDERED: Albuterol 0.083% 2.5 MG/3 ML Neb Soln ONE (00:22)
[2021-06-03 00:36] VITALS: BP 116/99; PULSE 103
[2021-06-06 08:06] LABS: O2 SATURATION VENOUS 99 % (60-80); PCO2 VENOUS 28 mmHg (41-51); PH,VENOUS 7.47 (7.31-7.41); PO2 VENOUS 140 mmHg (35-42)
[2021-06-06 08:07] LABS: BASE EXCESS VENOUS -4 mmol/l ((-2)-(+3)); BICARBONATE,VENOUS 20 mmol/l (19-25)
== END 2021-06-03 00:36 | disposition swing bed (61) ==
LOC: DL.ED 20:37
DX: J44.1 Chronic obstructive pulmonary disease with (acute) exacerbation (principal); J18.9 Pneumonia, unspecified organism; F17.200 Nicotine dependence, unspecified, uncomplicated; I25.10 Atherosclerotic heart disease of native coronary artery without angina pectoris; E78.00 Pure hypercholesterolemia, unspecified; I10 Essential (primary) hypertension; I25.2 Old myocardial infarction; E11.9 Type 2 diabetes mellitus without complications; E03.9 Hypothyroidism, unspecified; Z88.5 Allergy status to narcotic agent; Z88.0 Allergy status to penicillin; Z79.82 Long term (current) use of aspirin; Z79.02 Long term (current) use of antithrombotics/antiplatelets; Z79.84 Long term (current) use of oral hypoglycemic drugs; Z79.899 Other long term (current) drug therapy; Z20.822 Contact with and (suspected) exposure to COVID-19
CPT/HCPCS: 0240U; 36415; 71046; 71260; 80053; 81001; 82803; 83605; 83735; 84484; 85025; 85379; 85610; 86140; 87040; 93005; 96374; 99285; A9270; J2930; J3490; J7030; Q9967; J7613-GY; J7620-GY

== ENCOUNTER 2021-06-14 13:29 | Emergency (ER) | payer MEDICAID ==
[2021-06-14 14:26] VITALS: BP 126/78; PULSE 88
[2021-06-14] MEDS ORDERED: Sodium Chloride 0.9% 10 ML Syringe FLUSH PRN (14:35)
[2021-06-14] MEDS ORDERED: Sodium Chloride 0.9% 1,000 ML IV ONE (14:37)
[2021-06-14] MEDS ORDERED: Ketorolac 30 MG/ML SDV IVPUSH ONE (14:37)
[2021-06-14] MEDS ORDERED: diphenhydrAMINE 50 MG/ML SDV IVPUSH ONE (14:37)
[2021-06-14] MEDS ORDERED: Famotidine 20 MG/2 ML SDV IVPUSH ONE (14:38)
[2021-06-14] MEDS ORDERED: Ondansetron 4 MG/2 ML SDV IV ONE (14:38)
[2021-06-14 15:12] LABS: ANION GAP 13.3 mEq/L (7-13)
== END 2021-06-14 16:37 | disposition home or self-care (01) ==
LOC: DL.ED 13:29
DX: G43.909 Migraine, unspecified, not intractable, without status migrainosus (principal); E86.0 Dehydration; J44.9 Chronic obstructive pulmonary disease, unspecified; I11.0 Hypertensive heart disease with heart failure; I50.9 Heart failure, unspecified; I25.2 Old myocardial infarction; E11.9 Type 2 diabetes mellitus without complications; E03.9 Hypothyroidism, unspecified; Z88.0 Allergy status to penicillin; Z88.5 Allergy status to narcotic agent; Z79.82 Long term (current) use of aspirin; Z79.02 Long term (current) use of antithrombotics/antiplatelets; Z79.84 Long term (current) use of oral hypoglycemic drugs
CPT/HCPCS: 36415; 80053; 82150; 83690; 83735; 85025; 96374; 96375; 99283; 99283-25; J1200; J1885; J2405; J3490; J7030

== ENCOUNTER 2021-06-15 14:06 | Inpatient (IN) | payer MEDICAID ==
[2021-06-15] MEDS ORDERED: Sodium Chloride 0.9% 1,000 ML IV ONE (14:31)
[2021-06-15] MEDS ORDERED: Ondansetron 4 MG/2 ML SDV IVPUSH ONE (14:33)
[2021-06-15] MEDS ORDERED: Ketorolac 30 MG/ML SDV IVPUSH ONE (14:33)
[2021-06-15] MEDS ORDERED: Famotidine 20 MG/2 ML SDV IVPUSH ONE (14:33)
[2021-06-15 15:15] LABS: ANION GAP 14.3 mEq/L (7-13); CHLORIDE,CL 106 mmol/L (98-107); SODIUM,NA 141 mmol/L (136-145)
[2021-06-15 16:26] LABS: AMPHETAMINES,URINE NEGATIVE (NEGATIVE); BARBITURATES,URINE NEGATIVE (NEGATIVE); BENZODIAZEPINE,URINE NEGATIVE (NEGATIVE); MDMA (ECSTASY), URINE NEGATIVE (NEGATIVE); METHADONE,URINE NEGATIVE (NEGATIVE); METHAMPHETAMINES,URINE NEGATIVE (NEGATIVE); OPIATES,URINE NEGATIVE (NEGATIVE); OXYCODONE,URINE POSITIVE (NEGATIVE); PHENCYCLIDINE,URINE NEGATIVE (NEGATIVE); TCA,URINE NEGATIVE (NEGATIVE)
[2021-06-15 18:19] LABS: CORONAVIRUS COVID-19 NAA NEGATIVE (NEGATIVE)
[2021-06-15] MEDS ORDERED: Ziprasidone Mesylate 20 MG Vial IM ONE (18:50)
[2021-06-15] MEDS ORDERED: Water For Injection, Sterile 20 ML ONE ×2 (18:52→22:43)
[2021-06-15] MEDS ORDERED: Polyethylene Glycol 3350 Powder 17 GM Packet PO PRN (19:16)
[2021-06-15] MEDS ORDERED: Ondansetron 4 MG/2 ML SDV IVPUSH PRN (19:16)
[2021-06-15] MEDS ORDERED: Albuterol/Ipratropium 3.0-0.5 MG/3 ML Neb Soln NEB PRN (19:16)
[2021-06-15] MEDS ORDERED: Magnesium Hydroxide 400 MG/5 ML Susp 30 ML Cup PO PRN (19:16)
[2021-06-15] MEDS ORDERED: Bisacodyl 5 MG Tab PO PRN (19:16)
[2021-06-15] MEDS: Sodium Chloride 0.9% 1,000 ML IV SCH (19:50)
[2021-06-15] MEDS ORDERED: hydrALAZINE 20 MG/ML SDV IVPUSH PRN (19:58)
[2021-06-15] MEDS ORDERED: Metoprolol Tartrate 5 MG/5 ML SDV IVPUSH PRN (19:58)
[2021-06-15] MEDS ORDERED: Aspirin 300 MG Supp RECTAL ONE (20:00)
[2021-06-15] MEDS ORDERED: Glucagon,Human Recombinant 1 MG Vial IM PRN (20:07)
[2021-06-15] MEDS ORDERED: 50% Dextrose in Water 50 ML Syringe IVPUSH PRN (20:07)
[2021-06-15] MEDS ORDERED: guaiFENesin/Dextromethorphan 100-10 MG/5 ML Soln 5 ML Cup PO PRN (20:09)
[2021-06-15] MEDS ORDERED: Nicotine 21 MG/24 Hr Patch TRDERM ONE (20:09)
[2021-06-15] MEDS: Nicotine 21 MG/24 Hr Patch TRDERM SCH (20:29)
[2021-06-15] MEDS: Insulin Lispro 100 Units/ML 3 ML Vial SUBCUT SCH (20:30)
[2021-06-15 20:53] LABS: HEMOGLOBIN A1C 7.6 % (<5.7)
[2021-06-15] MEDS: Ketorolac 30 MG/ML SDV IVPUSH PRN (21:24)
[2021-06-15 22:02] LABS: RESPIRATORY SYNCYTIAL VIR NAA NEGATIVE (NEGATIVE)
[2021-06-15] MEDS: Ziprasidone Mesylate 20 MG Vial IM PRN (22:51)
[2021-06-16] MEDS: Hydroxychloroquine 200 MG Tab PO SCH ×3 (00:10→20:45)
[2021-06-16] MEDS: Simvastatin 10 MG Tab PO SCH ×2 (00:10→20:45)
[2021-06-16] MEDS: Insulin Lispro 100 Units/ML 3 ML Vial SUBCUT SCH ×2 (00:36→04:13)
[2021-06-16] MEDS: Ketorolac 30 MG/ML SDV IVPUSH PRN ×2 (03:53→16:42)
[2021-06-16] MEDS: Sodium Chloride 0.9% 1,000 ML IV SCH (05:47)
[2021-06-16 05:57] LABS: ANION GAP 18.1 mEq/L (7-13); CHLORIDE,CL 95 mmol/L (98-107); SODIUM,NA 128 mmol/L (136-145)
[2021-06-16] MEDS: Pantoprazole 40 MG Tab.CR PO SCH ×3 (06:52→17:45)
[2021-06-16] MEDS: Levothyroxine 75 MCG Tab PO SCH ×2 (06:52→07:05)
[2021-06-16] MEDS: Levothyroxine 100 MCG Tab PO SCH ×2 (06:53→07:04)
[2021-06-16] MEDS: Acetaminophen 325 MG Tab PO PRN ×3 (06:58→19:14)
[2021-06-16] MEDS ORDERED: Prochlorperazine 5 MG Tab PO ONE (07:17)
[2021-06-16] MEDS ORDERED: Prochlorperazine 5 MG Tab PO PRN (07:31)
[2021-06-16] MEDS ORDERED: Ketorolac 30 MG/ML SDV IVPUSH ONE (08:30)
[2021-06-16] MEDS: Digoxin 125 MCG Tab PO SCH (09:30)
[2021-06-16] MEDS: Folic Acid 1 MG Tab PO SCH (09:31)
[2021-06-16] MEDS: Lisinopril 5 MG Tab PO SCH (09:31)
[2021-06-16] MEDS: Clopidogrel 75 MG Tab PO SCH (09:31)
[2021-06-16] MEDS ORDERED: SUMAtriptan 6 MG/0.5 ML SDV SUBCUT ONE (10:00)
[2021-06-16] MEDS ORDERED: Magnesium Sulfate/Water 2 GM in Premix Bag 1 BAG IV ONE (12:00)
[2021-06-16 13:16] LABS: ANION GAP 14.1 mEq/L (7-13); CHLORIDE,CL 94 mmol/L (98-107); SODIUM,NA 126 mmol/L (136-145)
[2021-06-16] MEDS: Acetaminophen/Butalbital/Caffeine 325-50-40 MG Tab PO PRN (15:17)
[2021-06-16] MEDS ORDERED: LORazepam 2 MG/ML SDV IVPUSH PRN (15:25)
[2021-06-16] MEDS ORDERED: Flumazenil 0.1 MG/ML 5 ML MDV IVPUSH PRN (15:25)
[2021-06-16 18:50] LABS: ANION GAP 12.6 mEq/L (7-13); CHLORIDE,CL 103 mmol/L (98-107); SODIUM,NA 136 mmol/L (136-145)
[2021-06-16] MEDS: Nicotine 21 MG/24 Hr Patch TRDERM SCH (20:46)
[2021-06-16] MEDS ORDERED: Nicotine 21 MG/24 Hr Patch TRDERM SCH (21:00)
[2021-06-16] MEDS ORDERED: Melatonin 3 MG Tab PO PRN (22:05)
[2021-06-16] MEDS ORDERED: predniSONE 10 MG Tab PO SCH (22:15)
[2021-06-16] MEDS ORDERED: Pregabalin 75 MG Cap PO ONE (22:16)
[2021-06-16 23:28] LABS: ANION GAP 14.5 mEq/L (7-13); CHLORIDE,CL 102 mmol/L (98-107); SODIUM,NA 136 mmol/L (136-145)
[2021-06-17] MEDS: Acetaminophen/Butalbital/Caffeine 325-50-40 MG Tab PO PRN ×3 (00:20→18:36)
[2021-06-17] MEDS: Ziprasidone Mesylate 20 MG Vial IM PRN (00:20)
[2021-06-17] MEDS: Ketorolac 30 MG/ML SDV IVPUSH PRN (00:20)
[2021-06-17] MEDS: Levothyroxine 100 MCG Tab PO SCH (05:59)
[2021-06-17] MEDS: Pantoprazole 40 MG Tab.CR PO SCH ×2 (05:59→18:35)
[2021-06-17] MEDS: Levothyroxine 75 MCG Tab PO SCH (05:59)
[2021-06-17 07:48] LABS: ANION GAP 14.7 mEq/L (7-13); CHLORIDE,CL 102 mmol/L (98-107); SODIUM,NA 137 mmol/L (136-145)
[2021-06-17] MEDS: Folic Acid 1 MG Tab PO SCH (08:23)
[2021-06-17] MEDS: Clopidogrel 75 MG Tab PO SCH (08:23)
[2021-06-17] MEDS: Hydroxychloroquine 200 MG Tab PO SCH (08:23)
[2021-06-17] MEDS: Lisinopril 5 MG Tab PO SCH (08:23)
[2021-06-17] MEDS: Acetaminophen 325 MG Tab PO PRN (08:24)
[2021-06-17] MEDS: Digoxin 125 MCG Tab PO SCH (08:26)
[2021-06-17] MEDS ORDERED: Prochlorperazine 5 MG Tab PO PRN (10:40)
[2021-06-17] MEDS: Insulin Lispro 100 Units/ML 3 ML Vial SUBCUT SCH (12:44)
[2021-06-17 18:30] VITALS: BP 171/89; PULSE 87
== END 2021-06-17 18:40 | disposition left against medical advice (07) | DRG 92 ==
LOC: DL.ED 14:06 → DL.MS 17:28
PROVIDERS: ADMIT Internal Medicine; ATTEND Internal Medicine
DX: G92.8 Other toxic encephalopathy (principal); M06.9 Rheumatoid arthritis, unspecified; R41.0 Disorientation, unspecified; E87.1 Hypo-osmolality and hyponatremia; I10 Essential (primary) hypertension; E78.5 Hyperlipidemia, unspecified; E78.00 Pure hypercholesterolemia, unspecified; I25.10 Atherosclerotic heart disease of native coronary artery without angina pectoris; I25.2 Old myocardial infarction; Z95.1 Presence of aortocoronary bypass graft; E11.9 Type 2 diabetes mellitus without complications; I11.0 Hypertensive heart disease with heart failure; I50.9 Heart failure, unspecified; Z79.02 Long term (current) use of antithrombotics/antiplatelets; I49.9 Cardiac arrhythmia, unspecified; Z79.890 Hormone replacement therapy; E03.9 Hypothyroidism, unspecified; K21.9 Gastro-esophageal reflux disease without esophagitis; J44.9 Chronic obstructive pulmonary disease, unspecified; F17.210 Nicotine dependence, cigarettes, uncomplicated; M05.9 Rheumatoid arthritis with rheumatoid factor, unspecified; M19.90 Unspecified osteoarthritis, unspecified site; G89.4 Chronic pain syndrome; G43.909 Migraine, unspecified, not intractable, without status migrainosus; E11.65 Type 2 diabetes mellitus with hyperglycemia; R33.9 Retention of urine, unspecified; T50.915A Adverse effect of multiple unspecified drugs, medicaments and biological substances, initial encounter; Z79.82 Long term (current) use of aspirin; Z79.84 Long term (current) use of oral hypoglycemic drugs; Z79.899 Other long term (current) drug therapy; Z20.822 Contact with and (suspected) exposure to COVID-19; Z88.5 Allergy status to narcotic agent; Z88.0 Allergy status to penicillin; H54.7 Unspecified visual loss
CPT/HCPCS: 0241U; 36415; 51702; 70450; 80048; 80053; 80061; 80162; 80305-QW; 80307; 81003; 82947; 83036; 83605; 83735; 84300; 84439; 84443; 85025; 85651; 86140; 96374; 96375; 99284; 99285-25; A9270-GY; J0360; J1815-GY; J1885; J2405; J3030; J3475; J3486; J3490; J7030; J7131; Q0164

== ENCOUNTER 2023-07-15 16:49 | Inpatient (IN) | payer MEDICAID ==
[2023-07-15] MEDS: Albuterol/Ipratropium 3.0-0.5 MG/3 ML Neb Soln NEB ONE (17:30)
[2023-07-15 17:40] LABS: EOSINOPHILS PERCENT AUTO 0.8 % (1.0-3.0); HEMATOCRIT 34.4 % (37.0-47.0); HEMOGLOBIN 10.6 g/dL (12.0-16.0); LYMPHOCYTES PERCENT AUTO 10.8 % (20.5-50.1); MEAN CORPUSCULAR HEMOGLOBIN 26.4 pg (27.0-34.0); MEAN CORPUSCULAR HGB CONC 30.8 g/dL (33.0-35.0); MEAN CORPUSCULAR VOLUME 85.8 fL (80-100); MONOCYTES PERCENT AUTO 5.2 % (2-8); NEUTROPHILS PERCENT AUTO 83.2 % (42.2-75.2); PLATELET COUNT,PLT 286 10^3/uL (150-450); RED BLOOD CELL COUNT 4.01 10^6/uL (4.2-5.4); WHITE BLOOD CELL COUNT,WBC 11.3 10^3/uL (5.0-10.0)
[2023-07-15] MEDS: diphenhydrAMINE 50 MG/ML SDV IVPUSH ONE (17:52)
[2023-07-15] MEDS: Levofloxacin/Dextrose 5%-Water 500 MG in Premix Bag 1 BAG IV ONE (17:52)
[2023-07-15] MEDS: Sodium Chloride 0.9% 10 ML Syringe FLUSH PRN (17:52)
[2023-07-15] MEDS: methylPREDNISolone Sodium Succinate 125 MG/2 ML SDV IVPUSH ONE (17:57)
[2023-07-15] MEDS: Sodium Chloride 0.9% 1,000 ML IV ONE (17:58)
[2023-07-15 18:03] LABS: LACTIC ACID 1.5 mmol/L (0.4-2.0)
[2023-07-15 18:05] LABS: ALBUMIN 1.8 g/dL (3.4-5.0); ANION GAP 14.3 mEq/L (7-13); BILIRUBIN TOTAL 0.3 mg/dL (0.2-1.0); BUN/CREATININE RATIO 11.4 (No establ ref range); CALCIUM 7.8 mg/dL (8.5-10.1); CREATININE 1.14 mg/dL (0.55-1.02); EST CRCL DRUG DOSING (CG) 40.15 mL/min; POTASSIUM,K 4.3 mmol/L (3.5-5.1); PROTEIN TOTAL,TP 7.5 g/dL (6.4-8.2)
[2023-07-15 18:19] LABS: A/G RATIO 0.32
[2023-07-15] MEDS ORDERED: hydrALAZINE 20 MG/ML SDV IVPUSH PRN ×2 (19:03→19:43)
[2023-07-15] MEDS ORDERED: Metoprolol Tartrate 5 MG/5 ML SDV IVPUSH PRN ×2 (19:03→19:43)
[2023-07-15] MEDS ORDERED: Sennosides/Docusate Sodium 50-8.6 MG Tab PO PRN (19:06)
[2023-07-15] MEDS ORDERED: Acetaminophen 325 MG Tab PO PRN (19:06)
[2023-07-15] MEDS ORDERED: Naloxone 2 MG/2 ML Syringe IVPUSH PRN (19:06)
[2023-07-15] MEDS ORDERED: Magnesium Hydroxide 400 MG/5 ML Susp 30 ML Cup PO PRN (19:06)
[2023-07-15] MEDS ORDERED: Polyethylene Glycol 3350 Powder 17 GM Packet PO PRN (19:06)
[2023-07-15] MEDS ORDERED: Zolpidem 5 MG Tab PO PRN (19:06)
[2023-07-15] MEDS ORDERED: Albuterol/Ipratropium 3.0-0.5 MG/3 ML Neb Soln NEB PRN (19:06)
[2023-07-15] MEDS ORDERED: Ondansetron 4 MG/2 ML SDV IVPUSH PRN (19:06)
[2023-07-15 19:58] LABS: T4 FREE 1.36 ng/dL (0.76-1.46); TSH ULTRASENSITIVE 5.9 uIU/mL (0.36-3.74)
[2023-07-15] MEDS ORDERED: Metoclopramide 10 MG Tab PO PRN (20:33)
[2023-07-15] MEDS: Saccharomyces Boulardii (Probiotic) 250 MG Cap PO SCH (20:40)
[2023-07-15] MEDS: Oseltamivir 75 MG Cap PO ONE (20:40)
[2023-07-15] MEDS: Furosemide 40 MG/4 ML VIAL IVPUSH ONE (20:41)
[2023-07-15] MEDS: Famotidine 20 MG Tab PO SCH (22:28)
[2023-07-15] MEDS: Cefepime 2 GM Vial IVPUSH SCH (22:28)
[2023-07-15] MEDS: guaiFENesin 600 MG Tab.ER PO SCH (22:28)
[2023-07-15] MEDS: Gabapentin 300 MG Cap PO ONE (22:51)
[2023-07-15] MEDS: methylPREDNISolone Sodium Succinate 125 MG/2 ML SDV IVPUSH SCH (23:25)
[2023-07-16] MEDS: guaiFENesin/Dextromethorphan 100-10 MG/5 ML Soln 5 ML Cup PO PRN (04:34)
[2023-07-16] MEDS ORDERED: 50% Dextrose in Water 50 ML Syringe IVPUSH PRN (05:27)
[2023-07-16] MEDS ORDERED: Glucagon,Human Recombinant 1 MG Vial IM PRN (05:27)
[2023-07-16 06:40] LABS: HEMATOCRIT 39.9 % (37.0-47.0); HEMOGLOBIN 12.6 g/dL (12.0-16.0); LYMPHOCYTES PERCENT AUTO 8.7 % (20.5-50.1); MEAN CORPUSCULAR HEMOGLOBIN 26.5 pg (27.0-34.0); MEAN CORPUSCULAR HGB CONC 31.6 g/dL (33.0-35.0); MONOCYTES PERCENT AUTO 1.3 % (2-8); PLATELET COUNT,PLT 293 10^3/uL (150-450); RED BLOOD CELL COUNT 4.75 10^6/uL (4.2-5.4); WHITE BLOOD CELL COUNT,WBC 9.5 10^3/uL (5.0-10.0)
[2023-07-16] MEDS: Sodium Chloride 0.9% 1,000 ML IV SCH (06:55)
[2023-07-16 07:20] LABS: ALANINE AMINOTRANSFERASE,ALT 12 U/L (14-59); ALBUMIN 1.9 g/dL (3.4-5.0); ALKALINE PHOSPHATASE 125 U/L (46-116); ASPARTATE AMNIOTRANSFERASE,AST 17 U/L (15-37); BILIRUBIN TOTAL 0.4 mg/dL (0.2-1.0); BLOOD UREA NITROGEN,BUN 18 mg/dL (7-18); BUN/CREATININE RATIO 15.9 (No establ ref range); CALCIUM 8.2 mg/dL (8.5-10.1); CARBON DIOXIDE,CO2 25 mmol/L (21-32); CHLORIDE,CL 101 mmol/L (98-107); CREATININE 1.13 mg/dL (0.55-1.02); EST CRCL DRUG DOSING (CG) 39.42 mL/min; GLUCOSE RANDOM 286 mg/dL (70-99); MAGNESIUM 1.6 mg/dL (1.8-2.4); PROTEIN TOTAL,TP 8.5 g/dL (6.4-8.2); SODIUM,NA 139 mmol/L (136-145)
[2023-07-16 07:33] LABS: A/G RATIO 0.29; ESTIMATED GFR 54 mL/min (>=60)
[2023-07-16 07:34] LABS: C-REACTIVE PROTEIN > 25.00 ng/dL (<=0.50)
[2023-07-16] MEDS ORDERED: Famotidine 20 MG Tab PO SCH (09:00)
[2023-07-16] MEDS ORDERED: Oseltamivir 75 MG Cap PO SCH (09:00)
[2023-07-16] MEDS: Benzocaine/Cetylpyridinium/Menthol Lozenge MUCMEM PRN (09:19)
[2023-07-16] MEDS: Insulin Lispro 100 Units/ML 3 ML Vial SUBCUT SCH (09:21)
[2023-07-16] MEDS: Enoxaparin 40 MG/0.4 ML Syringe SUBCUT SCH (09:25)
[2023-07-16] MEDS: Oseltamivir 30 MG Cap PO SCH (09:27)
[2023-07-16] MEDS: Bumetanide 1 MG Tab PO SCH (09:28)
[2023-07-16] MEDS: Folic Acid 1 MG Tab PO SCH (12:22)
[2023-07-16] MEDS: Hydroxychloroquine 200 MG Tab PO SCH (12:22)
[2023-07-16] MEDS: Acetaminophen/HYDROcodone 325-5 MG Tab PO PRN (13:22)
[2023-07-16] MEDS: Gabapentin 300 MG Cap PO SCH (13:22)
[2023-07-16] MEDS: glipiZIDE 2.5 MG Tab.ER PO SCH (21:34)
[2023-07-16] MEDS: Ferrous Sulfate 325 MG Tab PO SCH (21:34)
[2023-07-16] MEDS: Ascorbic Acid 500 MG Tab PO SCH (21:36)
[2023-07-17] MEDS: hydrOXYzine HCl 25 MG Tab PO PRN (02:08)
[2023-07-17 06:36] LABS: HEMATOCRIT 34.5 % (37.0-47.0); HEMOGLOBIN 10.8 g/dL (12.0-16.0); LYMPHOCYTES PERCENT AUTO 10.9 % (20.5-50.1); MEAN CORPUSCULAR HEMOGLOBIN 26.3 pg (27.0-34.0); MEAN CORPUSCULAR HGB CONC 31.3 g/dL (33.0-35.0); MEAN CORPUSCULAR VOLUME 84.1 fL (80-100); MONOCYTES PERCENT AUTO 3.7 % (2-8); NEUTROPHILS PERCENT AUTO 85.4 % (42.2-75.2); PLATELET COUNT,PLT 299 10^3/uL (150-450); WHITE BLOOD CELL COUNT,WBC 9.9 10^3/uL (5.0-10.0)
[2023-07-17 07:00] LABS: ALBUMIN 1.6 g/dL (3.4-5.0); ANION GAP 14.9 mEq/L (7-13); BILIRUBIN TOTAL 0.2 mg/dL (0.2-1.0); BUN/CREATININE RATIO 26.7 (No establ ref range); C-REACTIVE PROTEIN 12.46 ng/dL (<=0.50); CALCIUM 7.9 mg/dL (8.5-10.1); CREATININE 1.05 mg/dL (0.55-1.02); EST CRCL DRUG DOSING (CG) 43.25 mL/min; MAGNESIUM 1.6 mg/dL (1.8-2.4); POTASSIUM,K 3.9 mmol/L (3.5-5.1); PROTEIN TOTAL,TP 7.1 g/dL (6.4-8.2)
[2023-07-17 07:18] LABS: A/G RATIO 0.29
[2023-07-17] MEDS: Famotidine 20 MG Tab PO SCH (09:51)
[2023-07-17] MEDS: Magnesium Sulfate/Water 2 GM in Premix Bag 1 BAG IV ONE (12:00)
[2023-07-17] MEDS: methylPREDNISolone Sodium Succinate 125 MG/2 ML SDV IVPUSH SCH (14:55)
[2023-07-18 06:10] LABS: HEMATOCRIT 36.4 % (37.0-47.0); HEMOGLOBIN 11.3 g/dL (12.0-16.0); MEAN CORPUSCULAR HEMOGLOBIN 26.3 pg (27.0-34.0); MEAN CORPUSCULAR VOLUME 84.8 fL (80-100); PLATELET COUNT,PLT 293 10^3/uL (150-450); RED BLOOD CELL COUNT 4.29 10^6/uL (4.2-5.4); WHITE BLOOD CELL COUNT,WBC 7.6 10^3/uL (5.0-10.0)
[2023-07-18 06:11] LABS: NEUTROPHILS PERCENT AUTO 86.1 % (42.2-75.2)
[2023-07-18 06:12] LABS: LYMPHOCYTES PERCENT AUTO 10.1 % (20.5-50.1); MONOCYTES PERCENT AUTO 3.8 % (2-8)
[2023-07-18 06:37] LABS: ALBUMIN 1.6 g/dL (3.4-5.0); ANION GAP 13.4 mEq/L (7-13); BILIRUBIN TOTAL 0.2 mg/dL (0.2-1.0); BUN/CREATININE RATIO 23.6 (No establ ref range); C-REACTIVE PROTEIN 6.37 ng/dL (<=0.50); CALCIUM 7.5 mg/dL (8.5-10.1); CREATININE 1.1 mg/dL (0.55-1.02); EST CRCL DRUG DOSING (CG) 40.45 mL/min; MAGNESIUM 2.2 mg/dL (1.8-2.4); POTASSIUM,K 3.4 mmol/L (3.5-5.1); PROTEIN TOTAL,TP 6.9 g/dL (6.4-8.2)
[2023-07-18 06:48] LABS: BAND PERCENT MAN 2 %; LYMPHOCYTES PERCENT MAN 12 % (20-50); SEG NEUTROPHILS PERCENT MAN 83 % (42-75)
[2023-07-18 06:49] LABS: MONOCYTES PERCENT MAN 3 % (2-8)
[2023-07-18 06:50] LABS: A/G RATIO 0.3
[2023-07-18] MEDS: Empagliflozin 25 MG Tab PO SCH (09:14)
[2023-07-18] MEDS: Potassium Chloride 10 MEQ Tab.ER PO SCH (09:32)
[2023-07-18] MEDS: HYDROmorphone 0.5 MG/0.5 ML Syringe IVPUSH PRN (12:09)
[2023-07-18] MEDS ORDERED: Loratadine 10 MG Tab PO PRN (12:24)
[2023-07-18] MEDS: methylPREDNISolone Sodium Succinate 125 MG/2 ML SDV IVPUSH SCH (14:20)
[2023-07-19] MEDS: Levothyroxine 112 MCG Tab PO SCH (05:10)
[2023-07-19 06:37] LABS: HEMATOCRIT 35.9 % (37.0-47.0); HEMOGLOBIN 11.1 g/dL (12.0-16.0); MEAN CORPUSCULAR HEMOGLOBIN 26.3 pg (27.0-34.0); MEAN CORPUSCULAR HGB CONC 30.9 g/dL (33.0-35.0); MEAN CORPUSCULAR VOLUME 85.1 fL (80-100); PLATELET COUNT,PLT 284 10^3/uL (150-450); RED BLOOD CELL COUNT 4.22 10^6/uL (4.2-5.4); WHITE BLOOD CELL COUNT,WBC 7.3 10^3/uL (5.0-10.0)
[2023-07-19 06:44] LABS: BASOPHILS PERCENT AUTO 0.1 % (0.0-1.0); LYMPHOCYTES PERCENT AUTO 10.7 % (20.5-50.1); MONOCYTES PERCENT AUTO 6.3 % (2-8); NEUTROPHILS PERCENT AUTO 82.9 % (42.2-75.2)
[2023-07-19 06:55] LABS: ALBUMIN 1.7 g/dL (3.4-5.0); ANION GAP 12.9 mEq/L (7-13); BILIRUBIN TOTAL 0.1 mg/dL (0.2-1.0); BUN/CREATININE RATIO 24.8 (No establ ref range); C-REACTIVE PROTEIN 4.42 ng/dL (<=0.50); CALCIUM 7.6 mg/dL (8.5-10.1); CREATININE 1.13 mg/dL (0.55-1.02); EST CRCL DRUG DOSING (CG) 40.51 mL/min; MAGNESIUM 2.2 mg/dL (1.8-2.4); POTASSIUM,K 4.9 mmol/L (3.5-5.1); PROTEIN TOTAL,TP 6.7 g/dL (6.4-8.2)
[2023-07-19 07:03] LABS: A/G RATIO 0.34
[2023-07-19 07:21] LABS: BAND PERCENT MAN 1 %; LYMPHOCYTES PERCENT MAN 11 % (20-50); MONOCYTES PERCENT MAN 5 % (2-8); SEG NEUTROPHILS PERCENT MAN 84 % (42-75)
[2023-07-19] MEDS ORDERED: Potassium Chloride 10 MEQ Tab.ER PO SCH (08:00)
[2023-07-19] MEDS: Lisinopril 5 MG Tab PO SCH (08:04)
[2023-07-20] MEDS: Furosemide 20 MG Tab PO ONE (16:45)
[2023-07-20] MEDS: methylPREDNISolone Sodium Succinate 125 MG/2 ML SDV IVPUSH SCH (21:45)
[2023-07-20] MEDS: Lisinopril 5 MG Tab PO SCH (22:45)
[2023-07-21 06:58] LABS: HEMATOCRIT 38.8 % (37.0-47.0); HEMOGLOBIN 11.9 g/dL (12.0-16.0); MEAN CORPUSCULAR HEMOGLOBIN 26.1 pg (27.0-34.0); MEAN CORPUSCULAR HGB CONC 30.7 g/dL (33.0-35.0); MEAN CORPUSCULAR VOLUME 85.1 fL (80-100); PLATELET COUNT,PLT 290 10^3/uL (150-450); RED BLOOD CELL COUNT 4.56 10^6/uL (4.2-5.4); WHITE BLOOD CELL COUNT,WBC 10.7 10^3/uL (5.0-10.0)
[2023-07-21 06:59] LABS: MONOCYTES PERCENT AUTO 3.7 % (2-8); NEUTROPHILS PERCENT AUTO 85.3 % (42.2-75.2)
[2023-07-21 07:04] LABS: ANION GAP 13.5 mEq/L (7-13); BILIRUBIN TOTAL 0.2 mg/dL (0.2-1.0); BUN/CREATININE RATIO 30.5 (No establ ref range); C-REACTIVE PROTEIN 2.31 ng/dL (<=0.50); CALCIUM 7.6 mg/dL (8.5-10.1); CREATININE 0.95 mg/dL (0.55-1.02); EST CRCL DRUG DOSING (CG) 48.19 mL/min; MAGNESIUM 2.1 mg/dL (1.8-2.4); POTASSIUM,K 4.5 mmol/L (3.5-5.1); PROTEIN TOTAL,TP 6.8 g/dL (6.4-8.2)
[2023-07-21 07:10] LABS: A/G RATIO 0.42
[2023-07-21 08:04] LABS: LYMPHOCYTES PERCENT MAN 14 % (20-50); SEG NEUTROPHILS PERCENT MAN 86 % (42-75)
[2023-07-21] MEDS ORDERED: Lisinopril 5 MG Tab PO SCH (09:00)
[2023-07-21] MEDS: Acetaminophen/oxyCODONE 325-5 MG Tab PO PRN (10:15)
[2023-07-21] MEDS: Furosemide 20 MG Tab PO SCH (16:08)
[2023-07-22 07:04] LABS: HEMATOCRIT 39.4 % (37.0-47.0); HEMOGLOBIN 12.2 g/dL (12.0-16.0); MEAN CORPUSCULAR HEMOGLOBIN 26.3 pg (27.0-34.0); MEAN CORPUSCULAR VOLUME 84.9 fL (80-100); PLATELET COUNT,PLT 302 10^3/uL (150-450); RED BLOOD CELL COUNT 4.64 10^6/uL (4.2-5.4); WHITE BLOOD CELL COUNT,WBC 9.9 10^3/uL (5.0-10.0)
[2023-07-22 07:21] LABS: BASOPHILS PERCENT AUTO 0.1 % (0.0-1.0); LYMPHOCYTES PERCENT AUTO 11.7 % (20.5-50.1); MONOCYTES PERCENT AUTO 4.8 % (2-8); NEUTROPHILS PERCENT AUTO 83.4 % (42.2-75.2)
[2023-07-22 07:27] LABS: ANION GAP 15.6 mEq/L (7-13); BILIRUBIN TOTAL 0.2 mg/dL (0.2-1.0); BUN/CREATININE RATIO 29.6 (No establ ref range); C-REACTIVE PROTEIN 1.72 ng/dL (<=0.50); CALCIUM 7.7 mg/dL (8.5-10.1); CREATININE 0.98 mg/dL (0.55-1.02); EST CRCL DRUG DOSING (CG) 46.71 mL/min; MAGNESIUM 2.2 mg/dL (1.8-2.4); POTASSIUM,K 4.6 mmol/L (3.5-5.1); PROTEIN TOTAL,TP 6.8 g/dL (6.4-8.2)
[2023-07-22 07:36] LABS: A/G RATIO 0.42
[2023-07-22 08:18] LABS: SEG NEUTROPHILS PERCENT MAN 84 % (42-75)
[2023-07-22 08:19] LABS: LYMPHOCYTES PERCENT MAN 11 % (20-50); MONOCYTES PERCENT MAN 5 % (2-8)
[2023-07-22 11:59] VITALS: BP 150/95; PULSE 70
== END 2023-07-22 14:49 | disposition home or self-care (01) | DRG 871 ==
LOC: DL.ED 16:49 → DL.MS 18:51 → UNDOADMIN 18:55 → DL.MS 18:55
PROVIDERS: ADMIT Internal Medicine; ATTEND Internal Medicine
DX: A41.89 Other specified sepsis (principal); E43 Unspecified severe protein-calorie malnutrition; N17.9 Acute kidney failure, unspecified; J44.1 Chronic obstructive pulmonary disease with (acute) exacerbation; I25.2 Old myocardial infarction; J10.1 Influenza due to other identified influenza virus with other respiratory manifestations; E11.9 Type 2 diabetes mellitus without complications; I11.0 Hypertensive heart disease with heart failure; I50.9 Heart failure, unspecified; E03.9 Hypothyroidism, unspecified; Z88.8 Allergy status to other drugs, medicaments and biological substances; Z91.048 Other nonmedicinal substance allergy status; Z79.82 Long term (current) use of aspirin; Z79.84 Long term (current) use of oral hypoglycemic drugs; Z79.899 Other long term (current) drug therapy; K21.9 Gastro-esophageal reflux disease without esophagitis; E78.5 Hyperlipidemia, unspecified; Z87.891 Personal history of nicotine dependence; E11.65 Type 2 diabetes mellitus with hyperglycemia; E83.42 Hypomagnesemia; I25.10 Atherosclerotic heart disease of native coronary artery without angina pectoris; D64.9 Anemia, unspecified; F17.210 Nicotine dependence, cigarettes, uncomplicated; M05.89 Other rheumatoid arthritis with rheumatoid factor of multiple sites; G89.4 Chronic pain syndrome; G43.909 Migraine, unspecified, not intractable, without status migrainosus; Z79.4 Long term (current) use of insulin; Z95.1 Presence of aortocoronary bypass graft; Z88.0 Allergy status to penicillin; Z68.20 Body mass index [BMI] 20.0-20.9, adult; Z88.5 Allergy status to narcotic agent; Z88.6 Allergy status to analgesic agent; Z90.49 Acquired absence of other specified parts of digestive tract; Z90.710 Acquired absence of both cervix and uterus
CPT/HCPCS: 36415; 71045; 80053; 83605; 83880; 84439; 84443; 84484; 85025; 87040 ×2; 87081; 87430; 87635; 87804 ×2; 93005; 93010; 96365; 96375; 99285 ×2; J1200; J1956; J2919; J3370; J7050; 80202; 82947; 83735; 86140; 93306; A9270-GY; J0692; J1170; J1650; J1815-GY; J1940; J3475; J3490; J7030; J7620-GY; U0002

== ENCOUNTER 2023-08-18 22:57 | Inpatient (IN) | payer MEDICAID, MEDICARE ==
[2023-08-19 00:12] LABS: BASOPHILS PERCENT AUTO 0.1 % (0.0-1.0); EOSINOPHILS PERCENT AUTO 0.1 % (1.0-3.0); HEMATOCRIT 36.7 % (37.0-47.0); HEMOGLOBIN 11.4 g/dL (12.0-16.0); LYMPHOCYTES PERCENT AUTO 5.4 % (20.5-50.1); MEAN CORPUSCULAR HEMOGLOBIN 27.1 pg (27.0-34.0); MEAN CORPUSCULAR HGB CONC 31.1 g/dL (33.0-35.0); MEAN CORPUSCULAR VOLUME 87.2 fL (80-100); MONOCYTES PERCENT AUTO 4.1 % (2-8); NEUTROPHILS PERCENT AUTO 90.3 % (42.2-75.2); PLATELET COUNT,PLT 190 10^3/uL (150-450); RED BLOOD CELL COUNT 4.21 10^6/uL (4.2-5.4); WHITE BLOOD CELL COUNT,WBC 13.2 10^3/uL (5.0-10.0)
[2023-08-19] MEDS: Albuterol/Ipratropium 3.0-0.5 MG/3 ML Neb Soln NEB ONE (00:21)
[2023-08-19 00:28] LABS: ALBUMIN 2.1 g/dL (3.4-5.0); ANION GAP 13.7 mEq/L (7-13); BILIRUBIN TOTAL 0.5 mg/dL (0.2-1.0); BUN/CREATININE RATIO 13.8 (No establ ref range); C-REACTIVE PROTEIN 22.1 ng/dL (<=0.50); CALCIUM 7.9 mg/dL (8.5-10.1); CREATININE 0.87 mg/dL (0.55-1.02); EST CRCL DRUG DOSING (CG) 52.62 mL/min; POTASSIUM,K 4.7 mmol/L (3.5-5.1); PROTEIN TOTAL,TP 7.4 g/dL (6.4-8.2)
[2023-08-19 00:56] LABS: A/G RATIO 0.4
[2023-08-19] MEDS: Ibuprofen 400 MG Tab PO ONE (01:01)
[2023-08-19 01:18] LABS: APPEARANCE,URINE CLEAR (CLEAR); BILIRUBIN,URINE NEGATIVE (NEGATIVE); COLOR,URINE YELLOW (YELLOW); GLUCOSE,URINE NEGATIVE (NEGATIVE); KETONES,URINE NEGATIVE (NEGATIVE); LEUKOCYTE ESTERASE,URINE NEGATIVE (NEGATIVE); NITRITE,URINE NEGATIVE (NEGATIVE); OCCULT BLOOD,URINE NEGATIVE (NEGATIVE); PH,URINE 6.5 (5.0-9.0); PROTEIN,URINE 100 (NEGATIVE)
[2023-08-19 01:26] LABS: LACTIC ACID 2.1 mmol/L (0.4-2.0)
[2023-08-19] MEDS: Levofloxacin/Dextrose 5%-Water 750 MG in Premix Bag 1 BAG IV ONE (01:28)
[2023-08-19] MEDS: Lactated Ringers 1,000 ML IV SCH (01:28)
[2023-08-19 01:29] LABS: INR 1.1 (0.9-1.2); PROTHROMBIN TIME 11.1 SEC (9.0-12.0); PTT,PARTIAL THROMBOPLSTIN TIME 29.3 SEC (22.0-34.0)
[2023-08-19 01:29] LABS: AMORPHOUS SEDIMENT,URINE FEW /HPF (NOT SEEN); BACTERIA,URINE FEW /HPF (0-FEW/HPF); EPITHELIAL CELLS,URINE FEW /HPF (NOT SEEN); MUCUS,URINE FEW /LPF (NOT SEEN); RBC,URINE 0-5 /HPF (0-5); WBC,URINE 0-5 /HPF (0-5/HPF)
[2023-08-19] MEDS: Sodium Chloride 0.9% 10 ML Syringe FLUSH PRN (01:37)
[2023-08-19] MEDS ORDERED: Ondansetron 4 MG Tab.DIS PO PRN (02:47)
[2023-08-19] MEDS ORDERED: Docusate Sodium 100 MG Cap PO PRN (02:47)
[2023-08-19] MEDS ORDERED: Glucagon,Human Recombinant 1 MG Vial IM PRN (02:54)
[2023-08-19] MEDS ORDERED: 50% Dextrose in Water 50 ML Syringe IVPUSH PRN (02:54)
[2023-08-19] MEDS: Furosemide 100 MG/10 ML SDV IVPUSH ONE (03:17)
[2023-08-19] MEDS: methylPREDNISolone Sodium Succinate 40 MG/1 ML SDV IVPUSH SCH (03:17)
[2023-08-19] MEDS: Albuterol/Ipratropium 3.0-0.5 MG/3 ML Neb Soln NEB SCH (05:57)
[2023-08-19] MEDS: Levothyroxine 112 MCG Tab PO SCH (05:57)
[2023-08-19] MEDS: Acetaminophen/HYDROcodone 325-10 MG Tab PO PRN (07:29)
[2023-08-19] MEDS: predniSONE 20 MG Tab PO SCH (08:41)
[2023-08-19] MEDS: Folic Acid 1 MG Tab PO SCH (08:41)
[2023-08-19] MEDS: Insulin Lispro 100 Units/ML 3 ML Vial SUBCUT SCH (08:41)
[2023-08-19] MEDS: Aspirin 81 MG Tab.EC PO SCH (08:42)
[2023-08-19] MEDS: Pantoprazole 40 MG Tab.CR PO SCH (08:42)
[2023-08-19] MEDS: Gabapentin 300 MG Cap PO SCH (08:42)
[2023-08-19] MEDS: Lisinopril 5 MG Tab PO SCH (08:43)
[2023-08-19] MEDS: Enoxaparin 40 MG/0.4 ML Syringe SUBCUT SCH (08:44)
[2023-08-19] MEDS: Levofloxacin/Dextrose 5%-Water 500 MG in Premix Bag 1 BAG IV SCH (20:25)
[2023-08-19] MEDS: Simvastatin 10 MG Tab PO SCH (20:26)
[2023-08-20] MEDS: Acetaminophen 325 MG Tab PO PRN (03:35)
[2023-08-20 06:19] LABS: BASOPHILS PERCENT AUTO 0.1 % (0.0-1.0); HEMATOCRIT 33.6 % (37.0-47.0); HEMOGLOBIN 10.4 g/dL (12.0-16.0); LYMPHOCYTES PERCENT AUTO 10.7 % (20.5-50.1); MEAN CORPUSCULAR HEMOGLOBIN 26.9 pg (27.0-34.0); MONOCYTES PERCENT AUTO 5.6 % (2-8); NEUTROPHILS PERCENT AUTO 83.6 % (42.2-75.2); PLATELET COUNT,PLT 210 10^3/uL (150-450); RED BLOOD CELL COUNT 3.86 10^6/uL (4.2-5.4); WHITE BLOOD CELL COUNT,WBC 13.3 10^3/uL (5.0-10.0)
[2023-08-20 06:33] LABS: ANION GAP 12.2 mEq/L (7-13); CALCIUM 8.3 mg/dL (8.5-10.1); CREATININE 0.89 mg/dL (0.55-1.02); EST CRCL DRUG DOSING (CG) 45.9 mL/min; POTASSIUM,K 4.2 mmol/L (3.5-5.1)
[2023-08-20] MEDS: Furosemide 40 MG Tab PO SCH (08:16)
[2023-08-20 11:27] VITALS: BP 121/68; PULSE 105
== END 2023-08-20 13:00 | disposition home or self-care (01) | DRG 193 ==
LOC: DL.ED 22:57 → DL.MS 08-19 01:48 → DL.ED 08-19 01:56
PROVIDERS: ADMIT Internal Medicine; ATTEND Student in an Organized Health Care Education/Training Program
DX: A41.9 Sepsis, unspecified organism (principal); R65.20 Severe sepsis without septic shock; J18.9 Pneumonia, unspecified organism; R80.9 Proteinuria, unspecified; I50.43 Acute on chronic combined systolic (congestive) and diastolic (congestive) heart failure; J44.9 Chronic obstructive pulmonary disease, unspecified; D84.821 Immunodeficiency due to drugs; I50.33 Acute on chronic diastolic (congestive) heart failure; E87.1 Hypo-osmolality and hyponatremia; J44.0 Chronic obstructive pulmonary disease with (acute) lower respiratory infection; J96.11 Chronic respiratory failure with hypoxia; E87.20 Acidosis, unspecified; E78.00 Pure hypercholesterolemia, unspecified; N39.0 Urinary tract infection, site not specified; J44.1 Chronic obstructive pulmonary disease with (acute) exacerbation; I11.0 Hypertensive heart disease with heart failure; E78.2 Mixed hyperlipidemia; I25.10 Atherosclerotic heart disease of native coronary artery without angina pectoris; I48.0 Paroxysmal atrial fibrillation; E03.9 Hypothyroidism, unspecified; Z91.09 Other allergy status, other than to drugs and biological substances; E11.9 Type 2 diabetes mellitus without complications; K21.9 Gastro-esophageal reflux disease without esophagitis; M05.79 Rheumatoid arthritis with rheumatoid factor of multiple sites without organ or systems involvement; Z79.890 Hormone replacement therapy; G43.909 Migraine, unspecified, not intractable, without status migrainosus; H54.7 Unspecified visual loss; I48.91 Unspecified atrial fibrillation; J84.10 Pulmonary fibrosis, unspecified; E11.69 Type 2 diabetes mellitus with other specified complication; E11.65 Type 2 diabetes mellitus with hyperglycemia; Y95 Nosocomial condition; I35.1 Nonrheumatic aortic (valve) insufficiency; I27.20 Pulmonary hypertension, unspecified; Z95.1 Presence of aortocoronary bypass graft; Z99.81 Dependence on supplemental oxygen; Z87.891 Personal history of nicotine dependence; Z88.5 Allergy status to narcotic agent; Z88.0 Allergy status to penicillin; Z79.899 Other long term (current) drug therapy; Z79.51 Long term (current) use of inhaled steroids; Z79.82 Long term (current) use of aspirin; Z79.84 Long term (current) use of oral hypoglycemic drugs; I25.2 Old myocardial infarction; Z90.49 Acquired absence of other specified parts of digestive tract; Z90.710 Acquired absence of both cervix and uterus
CPT/HCPCS: 36415; 71046; 72100; 80048; 80053; 81001; 82947; 83605; 83880; 84145; 84443; 84484; 85025; 85610; 85730; 86140; 87040; 93005; 93010; 94760; 96365; 97161-GP; 99285; 99285-25; A9270-GY; J1650; J1815-GY; J1940; J1956; J2919; J3490; J7120; J7512; J7620-GY

== ENCOUNTER 2023-09-21 15:42 | Inpatient (IN) | payer MEDICARE, MEDICAID ==
[2023-09-21 15:47] LABS: HEMATOCRIT 39.1 % (37.0-47.0); HEMOGLOBIN 12.3 g/dL (12.0-16.0); MEAN CORPUSCULAR HGB CONC 31.5 g/dL (33.0-35.0); MEAN CORPUSCULAR VOLUME 85.7 fL (80-100); PLATELET COUNT,PLT 318 10^3/uL (150-450); RED BLOOD CELL COUNT 4.56 10^6/uL (4.2-5.4); WHITE BLOOD CELL COUNT,WBC 11.3 10^3/uL (5.0-10.0)
[2023-09-21] MEDS: Acetaminophen 500 MG Tab PO ONE (15:50)
[2023-09-21 16:00] LABS: EOSINOPHILS PERCENT AUTO 0.1 % (1.0-3.0); NEUTROPHILS PERCENT AUTO 89.9 % (42.2-75.2)
[2023-09-21 16:12] LABS: ALBUMIN 1.9 g/dL (3.4-5.0); ANION GAP 18.6 mEq/L (7-13); BILIRUBIN TOTAL 0.5 mg/dL (0.2-1.0); BUN/CREATININE RATIO 13.3 (No establ ref range); CALCIUM 8.8 mg/dL (8.5-10.1); CREATININE 1.13 mg/dL (0.55-1.02); EST CRCL DRUG DOSING (CG) 40.51 mL/min; MAGNESIUM 1.1 mg/dL (1.8-2.4); POTASSIUM,K 4.6 mmol/L (3.5-5.1)
[2023-09-21 16:13] LABS: A/G RATIO 0.31
[2023-09-21 16:16] LABS: LACTIC ACID 2.9 mmol/L (0.4-2.0)
[2023-09-21] MEDS: Levofloxacin/Dextrose 5%-Water 500 MG in Premix Bag 1 BAG IV ONE (16:29)
[2023-09-21] MEDS: Furosemide 20 MG/2 ML VIAL IVPUSH ONE (17:04)
[2023-09-21 17:10] LABS: BAND PERCENT MAN 5 %; LYMPHOCYTES PERCENT MAN 8 % (20-50); METAMYELOCYTE PERCENT MAN 2; MONOCYTES PERCENT MAN 2 % (2-8); SEG NEUTROPHILS PERCENT MAN 83 % (42-75)
[2023-09-21] MEDS ORDERED: Polyethylene Glycol 3350 Powder 17 GM Packet PO PRN (18:16)
[2023-09-21] MEDS ORDERED: Albuterol/Ipratropium 3.0-0.5 MG/3 ML Neb Soln NEB PRN (18:16)
[2023-09-21] MEDS ORDERED: Magnesium Hydroxide 400 MG/5 ML Susp 30 ML Cup PO PRN (18:16)
[2023-09-21] MEDS ORDERED: Ondansetron 4 MG/2 ML SDV IVPUSH PRN (18:16)
[2023-09-21] MEDS ORDERED: Sennosides/Docusate Sodium 50-8.6 MG Tab PO PRN (18:16)
[2023-09-21] MEDS ORDERED: Naloxone 2 MG/2 ML Syringe IVPUSH PRN (18:16)
[2023-09-21] MEDS ORDERED: Bisacodyl 5 MG Tab PO PRN (18:16)
[2023-09-21] MEDS ORDERED: Metoprolol Tartrate 5 MG/5 ML SDV IVPUSH PRN (18:54)
[2023-09-21] MEDS ORDERED: hydrALAZINE 20 MG/ML SDV IVPUSH PRN (18:54)
[2023-09-21] MEDS ORDERED: 50% Dextrose in Water 50 ML Syringe IVPUSH PRN (19:06)
[2023-09-21] MEDS ORDERED: Glucagon,Human Recombinant 1 MG Vial IM PRN (19:06)
[2023-09-21 19:24] LABS: C-REACTIVE PROTEIN > 25.00 ng/dL (<=0.50)
[2023-09-21] MEDS: Lactated Ringers 500 ML IV SCH (21:00)
[2023-09-21] MEDS: HYDROmorphone 0.5 MG/0.5 ML Syringe IVPUSH PRN (21:00)
[2023-09-21] MEDS: Magnesium Sulfate/Water 2 GM in Premix Bag 1 BAG IV ONE (21:00)
[2023-09-21] MEDS: Cefepime 2 GM Vial IVPUSH SCH (21:00)
[2023-09-21] MEDS ORDERED: Gabapentin 400 MG Cap PO SCH (21:00)
[2023-09-21] MEDS ORDERED: Gabapentin 300 MG Cap PO SCH (21:00)
[2023-09-21] MEDS: Oseltamivir 75 MG Cap PO ONE (21:13)
[2023-09-21] MEDS: guaiFENesin 600 MG Tab.ER PO SCH (21:14)
[2023-09-21] MEDS: Gabapentin 300 MG Cap PO SCH (21:14)
[2023-09-21] MEDS: Midodrine 5 MG Tab PO ONE (21:14)
[2023-09-21] MEDS: Melatonin 3 MG Tab PO PRN (21:15)
[2023-09-21] MEDS: Simvastatin 10 MG Tab PO SCH (21:15)
[2023-09-21] MEDS: Hydroxychloroquine 200 MG Tab PO SCH (21:15)
[2023-09-21] MEDS: Lactated Ringers 1,000 ML IV SCH (23:00)
[2023-09-21] MEDS: Hydrocortisone Sodium Succinate 100 MG/2 ML SDV IVPUSH SCH (23:53)
[2023-09-22] MEDS: Magnesium Sulfate/Water 2 GM in Premix Bag 1 BAG IV ONE (03:30)
[2023-09-22 06:51] LABS: HEMATOCRIT 34.9 % (37.0-47.0); HEMOGLOBIN 10.8 g/dL (12.0-16.0); MEAN CORPUSCULAR HEMOGLOBIN 26.6 pg (27.0-34.0); MEAN CORPUSCULAR HGB CONC 30.9 g/dL (33.0-35.0); PLATELET COUNT,PLT 268 10^3/uL (150-450); RED BLOOD CELL COUNT 4.06 10^6/uL (4.2-5.4); WHITE BLOOD CELL COUNT,WBC 15.7 10^3/uL (5.0-10.0)
[2023-09-22 07:06] LABS: LYMPHOCYTES PERCENT AUTO 4.3 % (20.5-50.1); MONOCYTES PERCENT AUTO 2.4 % (2-8); NEUTROPHILS PERCENT AUTO 93.3 % (42.2-75.2)
[2023-09-22 07:17] LABS: ALANINE AMINOTRANSFERASE,ALT 6 U/L (14-59); ALBUMIN 1.4 g/dL (3.4-5.0); ALKALINE PHOSPHATASE 86 U/L (46-116); ANION GAP 14.5 mEq/L (7-13); ASPARTATE AMNIOTRANSFERASE,AST 13 U/L (15-37); BILIRUBIN TOTAL 0.3 mg/dL (0.2-1.0); BLOOD UREA NITROGEN,BUN 16 mg/dL (7-18); BUN/CREATININE RATIO 18.2 (No establ ref range); CALCIUM 8.6 mg/dL (8.5-10.1); CARBON DIOXIDE,CO2 21 mmol/L (21-32); CHLORIDE,CL 102 mmol/L (98-107); CREATININE 0.88 mg/dL (0.55-1.02); EST CRCL DRUG DOSING (CG) 50.61 mL/min; GLUCOSE RANDOM 142 mg/dL (70-99); MAGNESIUM 2.3 mg/dL (1.8-2.4); POTASSIUM,K 4.5 mmol/L (3.5-5.1); PROTEIN TOTAL,TP 6.5 g/dL (6.4-8.2); SODIUM,NA 133 mmol/L (136-145)
[2023-09-22 07:41] LABS: A/G RATIO 0.27; C-REACTIVE PROTEIN > 25.00 ng/dL (<=0.50); ESTIMATED GFR 72 mL/min (>=60)
[2023-09-22] MEDS: Insulin Lispro 100 Units/ML 3 ML Vial SUBCUT SCH (08:18)
[2023-09-22] MEDS: Ferrous Sulfate 325 MG Tab PO SCH (08:48)
[2023-09-22] MEDS: Pantoprazole 40 MG Tab.CR PO SCH (08:49)
[2023-09-22] MEDS: Levothyroxine 112 MCG Tab PO SCH (08:49)
[2023-09-22] MEDS: Folic Acid 1 MG Tab PO SCH (08:49)
[2023-09-22] MEDS: Aspirin 81 MG Tab.EC PO SCH (08:49)
[2023-09-22] MEDS: Oseltamivir 30 MG Cap PO SCH (08:49)
[2023-09-22] MEDS: Acetaminophen/HYDROcodone 325-5 MG Tab PO PRN (08:51)
[2023-09-22 09:07] LABS: BAND PERCENT MAN 5 %; LYMPHOCYTES PERCENT MAN 4 % (20-50); SEG NEUTROPHILS PERCENT MAN 89 % (42-75)
[2023-09-22 09:08] LABS: MONOCYTES PERCENT MAN 2 % (2-8)
[2023-09-22] MEDS: Furosemide 20 MG/2 ML VIAL IVPUSH ONE (11:46)
[2023-09-22] MEDS: Acetaminophen 325 MG Tab PO PRN (21:48)
[2023-09-23] MEDS: Levothyroxine 112 MCG Tab PO SCH (06:22)
[2023-09-23 06:24] LABS: HEMATOCRIT 32.6 % (37.0-47.0); HEMOGLOBIN 10.1 g/dL (12.0-16.0); LYMPHOCYTES PERCENT AUTO 6.9 % (20.5-50.1); MEAN CORPUSCULAR HEMOGLOBIN 26.8 pg (27.0-34.0); MEAN CORPUSCULAR VOLUME 86.5 fL (80-100); MONOCYTES PERCENT AUTO 4.2 % (2-8); NEUTROPHILS PERCENT AUTO 88.9 % (42.2-75.2); PLATELET COUNT,PLT 253 10^3/uL (150-450); RED BLOOD CELL COUNT 3.77 10^6/uL (4.2-5.4); WHITE BLOOD CELL COUNT,WBC 14.7 10^3/uL (5.0-10.0)
[2023-09-23 06:53] LABS: ALBUMIN 1.3 g/dL (3.4-5.0); BILIRUBIN TOTAL 0.1 mg/dL (0.2-1.0); BUN/CREATININE RATIO 26.4 (No establ ref range); C-REACTIVE PROTEIN 18.86 ng/dL (<=0.50); CALCIUM 8.4 mg/dL (8.5-10.1); CREATININE 1.1 mg/dL (0.55-1.02); EST CRCL DRUG DOSING (CG) 40.49 mL/min; MAGNESIUM 1.9 mg/dL (1.8-2.4); PROTEIN TOTAL,TP 6.3 g/dL (6.4-8.2)
[2023-09-23 06:56] LABS: A/G RATIO 0.26
[2023-09-23] MEDS ORDERED: Midodrine 5 MG Tab PO PRN (08:19)
[2023-09-23] MEDS: Lisinopril 5 MG Tab PO SCH (08:32)
[2023-09-23] MEDS: predniSONE 20 MG Tab PO SCH (08:33)
[2023-09-23] MEDS: Furosemide 40 MG Tab PO SCH (08:35)
[2023-09-23] MEDS: Acetaminophen/HYDROcodone 325-5 MG Tab PO SCH (21:08)
[2023-09-23] MEDS: Cefepime 2 GM Vial IVPUSH SCH (21:08)
[2023-09-24 08:30] LABS: HEMATOCRIT 33.4 % (37.0-47.0); HEMOGLOBIN 10.3 g/dL (12.0-16.0); MEAN CORPUSCULAR HEMOGLOBIN 26.8 pg (27.0-34.0); MEAN CORPUSCULAR HGB CONC 30.8 g/dL (33.0-35.0); MEAN CORPUSCULAR VOLUME 86.8 fL (80-100); PLATELET COUNT,PLT 244 10^3/uL (150-450); RED BLOOD CELL COUNT 3.85 10^6/uL (4.2-5.4); WHITE BLOOD CELL COUNT,WBC 10.8 10^3/uL (5.0-10.0)
[2023-09-24 08:34] LABS: EOSINOPHILS PERCENT AUTO 0.1 % (1.0-3.0); LYMPHOCYTES PERCENT AUTO 13.7 % (20.5-50.1); MONOCYTES PERCENT AUTO 7.7 % (2-8); NEUTROPHILS PERCENT AUTO 78.5 % (42.2-75.2)
[2023-09-24 08:50] LABS: ALBUMIN 1.7 g/dL (3.4-5.0); ANION GAP 10.2 mEq/L (7-13); BILIRUBIN TOTAL 0.2 mg/dL (0.2-1.0); BUN/CREATININE RATIO 21.7 (No establ ref range); C-REACTIVE PROTEIN 9.43 ng/dL (<=0.50); CALCIUM 8.5 mg/dL (8.5-10.1); CREATININE 1.06 mg/dL (0.55-1.02); EST CRCL DRUG DOSING (CG) 43.19 mL/min; MAGNESIUM 1.9 mg/dL (1.8-2.4); POTASSIUM,K 4.2 mmol/L (3.5-5.1)
[2023-09-24 08:55] LABS: A/G RATIO 0.32
[2023-09-24 09:25] LABS: BAND PERCENT MAN 3 %; LYMPHOCYTES PERCENT MAN 14 % (20-50); MONOCYTES PERCENT MAN 8 % (2-8); SEG NEUTROPHILS PERCENT MAN 75 % (42-75)
[2023-09-25 07:25] LABS: HEMATOCRIT 30.9 % (37.0-47.0); HEMOGLOBIN 9.4 g/dL (12.0-16.0); MEAN CORPUSCULAR HEMOGLOBIN 26.6 pg (27.0-34.0); MEAN CORPUSCULAR HGB CONC 30.4 g/dL (33.0-35.0); MEAN CORPUSCULAR VOLUME 87.3 fL (80-100); PLATELET COUNT,PLT 215 10^3/uL (150-450); RED BLOOD CELL COUNT 3.54 10^6/uL (4.2-5.4); WHITE BLOOD CELL COUNT,WBC 11.6 10^3/uL (5.0-10.0)
[2023-09-25 07:29] LABS: BASOPHILS PERCENT AUTO 0.1 % (0.0-1.0); EOSINOPHILS PERCENT AUTO 0.1 % (1.0-3.0); LYMPHOCYTES PERCENT AUTO 18.3 % (20.5-50.1); MONOCYTES PERCENT AUTO 12.2 % (2-8); NEUTROPHILS PERCENT AUTO 69.3 % (42.2-75.2)
[2023-09-25 07:46] LABS: LYMPHOCYTES PERCENT MAN 19 % (20-50); MONOCYTES PERCENT MAN 16 % (2-8); SEG NEUTROPHILS PERCENT MAN 65 % (42-75)
[2023-09-25 07:47] LABS: ALBUMIN 1.6 g/dL (3.4-5.0); BILIRUBIN TOTAL 0.1 mg/dL (0.2-1.0); BUN/CREATININE RATIO 25.5 (No establ ref range); C-REACTIVE PROTEIN 5.16 ng/dL (<=0.50); CALCIUM 8.1 mg/dL (8.5-10.1); CREATININE 0.98 mg/dL (0.55-1.02); EST CRCL DRUG DOSING (CG) 46.71 mL/min; MAGNESIUM 1.6 mg/dL (1.8-2.4); PROTEIN TOTAL,TP 6.6 g/dL (6.4-8.2)
[2023-09-25 07:49] LABS: A/G RATIO 0.32
[2023-09-25] MEDS: Magnesium Sulfate/Water 2 GM in Premix Bag 1 BAG IV ONE (11:54)
[2023-09-26 16:29] VITALS: BP 103/59; PULSE 99
== END 2023-09-26 17:35 | disposition home or self-care (01) | DRG 871 ==
LOC: DL.ED 15:42 → DL.MS 17:16 → DL.ED 17:41
PROVIDERS: ADMIT Internal Medicine; ATTEND Internal Medicine
DX: A41.89 Other specified sepsis (principal); E43 Unspecified severe protein-calorie malnutrition; J15.9 Unspecified bacterial pneumonia; I50.9 Heart failure, unspecified; R09.02 Hypoxemia; J96.21 Acute and chronic respiratory failure with hypoxia; E78.00 Pure hypercholesterolemia, unspecified; J44.9 Chronic obstructive pulmonary disease, unspecified; I50.23 Acute on chronic systolic (congestive) heart failure; J10.08 Influenza due to other identified influenza virus with other specified pneumonia; E87.1 Hypo-osmolality and hyponatremia; J44.0 Chronic obstructive pulmonary disease with (acute) lower respiratory infection; I42.9 Cardiomyopathy, unspecified; E87.20 Acidosis, unspecified; N17.9 Acute kidney failure, unspecified; I47.29 Other ventricular tachycardia; I27.20 Pulmonary hypertension, unspecified; R65.20 Severe sepsis without septic shock; I11.0 Hypertensive heart disease with heart failure; E03.9 Hypothyroidism, unspecified; M19.90 Unspecified osteoarthritis, unspecified site; I25.2 Old myocardial infarction; D72.829 Elevated white blood cell count, unspecified; E11.65 Type 2 diabetes mellitus with hyperglycemia; E83.52 Hypercalcemia; M54.2 Cervicalgia; M54.9 Dorsalgia, unspecified; I25.10 Atherosclerotic heart disease of native coronary artery without angina pectoris; K21.9 Gastro-esophageal reflux disease without esophagitis; E83.42 Hypomagnesemia; E88.09 Other disorders of plasma-protein metabolism, not elsewhere classified; G89.4 Chronic pain syndrome; I48.91 Unspecified atrial fibrillation; G43.909 Migraine, unspecified, not intractable, without status migrainosus; Z88.5 Allergy status to narcotic agent; Z88.0 Allergy status to penicillin; Z88.8 Allergy status to other drugs, medicaments and biological substances; Z63.5 Disruption of family by separation and divorce; Z95.1 Presence of aortocoronary bypass graft; Z99.81 Dependence on supplemental oxygen; Z99.89 Dependence on other enabling machines and devices; Z79.82 Long term (current) use of aspirin; Z79.84 Long term (current) use of oral hypoglycemic drugs; Z79.899 Other long term (current) drug therapy; Z91.148 Patient's other noncompliance with medication regimen for other reason; Z90.710 Acquired absence of both cervix and uterus; Z79.890 Hormone replacement therapy
CPT/HCPCS: 36415; 71045; 80053; 83605; 83690; 83735; 83880; 84145; 84484; 85025; 87040 ×2; 87804 ×2; 93005; 93010; 96365; 96375; 99285 ×2; A9270; J1940; J1956; U0002; 80202; 82533; 82947; 86140; 99232; 99233; 99239; 99291; J0692; J1170; J1720; J1815-GY; J3370; J3475; J7050; J7120; J7512

== ENCOUNTER 2023-12-14 10:58 | Emergency (ER) | payer MEDICARE, OTHER ==
[2023-12-14 11:29] LABS: APPEARANCE,URINE CLEAR (CLEAR); BILIRUBIN,URINE NEGATIVE (NEGATIVE); COLOR,URINE YELLOW (YELLOW); GLUCOSE,URINE NEGATIVE (NEGATIVE); KETONES,URINE NEGATIVE (NEGATIVE); LEUKOCYTE ESTERASE,URINE NEGATIVE (NEGATIVE); NITRITE,URINE NEGATIVE (NEGATIVE); OCCULT BLOOD,URINE NEGATIVE (NEGATIVE); PH,URINE 5.5 (5.0-9.0); PROTEIN,URINE 100 (NEGATIVE); UROBILINOGEN,URINE 0.2 mg/dL (0.2-1.0)
[2023-12-14 11:38] LABS: AMORPHOUS SEDIMENT,URINE FEW /HPF (NOT SEEN); BACTERIA,URINE MODERATE /HPF (0-FEW/HPF); EPITHELIAL CELLS,URINE FEW /HPF (NOT SEEN); HYALINE CASTS,URINE RARE; MUCUS,URINE MODERATE /LPF (NOT SEEN); RBC,URINE 0-5 /HPF (0-5); WBC,URINE 0-5 /HPF (0-5/HPF)
[2023-12-14 12:11] LABS: BASOPHILS PERCENT AUTO 0.2 % (0.0-1.0); HEMATOCRIT 33.6 % (37.0-47.0); HEMOGLOBIN 10.2 g/dL (12.0-16.0); LYMPHOCYTES PERCENT AUTO 12.7 % (20.5-50.1); MEAN CORPUSCULAR HEMOGLOBIN 26.9 pg (27.0-34.0); MEAN CORPUSCULAR HGB CONC 30.4 g/dL (33.0-35.0); MEAN CORPUSCULAR VOLUME 88.7 fL (80-100); MONOCYTES PERCENT AUTO 4.5 % (2-8); NEUTROPHILS PERCENT AUTO 81.6 % (42.2-75.2); PLATELET COUNT,PLT 278 10^3/uL (150-450); RED BLOOD CELL COUNT 3.79 10^6/uL (4.2-5.4); WHITE BLOOD CELL COUNT,WBC 12.2 10^3/uL (5.0-10.0)
[2023-12-14 12:32] LABS: ALBUMIN 1.8 g/dL (3.4-5.0); ANION GAP 13.9 mEq/L (7-13); BILIRUBIN TOTAL 0.3 mg/dL (0.2-1.0); BUN/CREATININE RATIO 14.5 (No establ ref range); C-REACTIVE PROTEIN 11.19 ng/dL (<=0.50); CALCIUM 8.5 mg/dL (8.5-10.1); CREATININE 1.17 mg/dL (0.55-1.02); EST CRCL DRUG DOSING (CG) 37.42 mL/min; POTASSIUM,K 3.9 mmol/L (3.5-5.1); PROTEIN TOTAL,TP 8.1 g/dL (6.4-8.2)
[2023-12-14 12:33] LABS: A/G RATIO 0.29; LACTIC ACID 1.3 mmol/L (0.4-2.0)
[2023-12-14] MEDS: Iopamidol 755 Mg/ML 100 ML Bottle IVPUSH ONE (13:14)
[2023-12-14] MEDS: Albuterol/Ipratropium 3.0-0.5 MG/3 ML Neb Soln NEB ONE (13:16)
[2023-12-14] MEDS: Magnesium Sulfate/Water Premix 2 GM in Premix Bag 1 BAG IV ONE (13:25)
[2023-12-14 15:35] VITALS: BP 121/72; PULSE 97
== END 2023-12-14 15:45 | disposition home or self-care (01) ==
LOC: DL.ED 10:58
DX: I71.40 Abdominal aortic aneurysm, without rupture, unspecified (principal); I11.0 Hypertensive heart disease with heart failure; I50.9 Heart failure, unspecified; I25.10 Atherosclerotic heart disease of native coronary artery without angina pectoris; K21.9 Gastro-esophageal reflux disease without esophagitis; M19.90 Unspecified osteoarthritis, unspecified site; E78.00 Pure hypercholesterolemia, unspecified; E11.9 Type 2 diabetes mellitus without complications; E03.9 Hypothyroidism, unspecified; Z88.0 Allergy status to penicillin; Z88.5 Allergy status to narcotic agent; Z88.8 Allergy status to other drugs, medicaments and biological substances; Z91.048 Other nonmedicinal substance allergy status; Z79.82 Long term (current) use of aspirin; Z79.84 Long term (current) use of oral hypoglycemic drugs; Z79.890 Hormone replacement therapy; Z79.899 Other long term (current) drug therapy; Z90.710 Acquired absence of both cervix and uterus
CPT/HCPCS: 36415; 71045; 71275; 80053; 81001; 83605; 83735; 83880; 84484; 85025; 85379; 86140; 93005; 93010; 96365; 96366; 99284-25; 99285; J3475; J7620-GY; Q9967

== ENCOUNTER 2023-12-15 14:05 | Emergency (ER) | payer MEDICARE, OTHER ==
[2023-12-15] MEDS: Acetaminophen 325 MG Tab PO ONE (14:35)
[2023-12-15 14:37] LABS: BASOPHILS PERCENT AUTO 0.1 % (0.0-1.0); EOSINOPHILS PERCENT AUTO 0.8 % (1.0-3.0); HEMATOCRIT 37.5 % (37.0-47.0); HEMOGLOBIN 11.5 g/dL (12.0-16.0); LYMPHOCYTES PERCENT AUTO 10.7 % (20.5-50.1); MEAN CORPUSCULAR HEMOGLOBIN 26.6 pg (27.0-34.0); MEAN CORPUSCULAR HGB CONC 30.7 g/dL (33.0-35.0); MEAN CORPUSCULAR VOLUME 86.8 fL (80-100); MONOCYTES PERCENT AUTO 3.3 % (2-8); NEUTROPHILS PERCENT AUTO 85.1 % (42.2-75.2); PLATELET COUNT,PLT 323 10^3/uL (150-450); RED BLOOD CELL COUNT 4.32 10^6/uL (4.2-5.4)
[2023-12-15 14:52] LABS: ALBUMIN 1.9 g/dL (3.4-5.0); ANION GAP 13.2 mEq/L (7-13); BILIRUBIN TOTAL 0.4 mg/dL (0.2-1.0); BUN/CREATININE RATIO 15.5 (No establ ref range); CALCIUM 8.9 mg/dL (8.5-10.1); CREATININE 1.1 mg/dL (0.55-1.02); EST CRCL DRUG DOSING (CG) 39.8 mL/min; MAGNESIUM 1.6 mg/dL (1.8-2.4); POTASSIUM,K 4.2 mmol/L (3.5-5.1); PROTEIN TOTAL,TP 8.5 g/dL (6.4-8.2)
[2023-12-15 14:54] LABS: A/G RATIO 0.29
[2023-12-15 14:58] LABS: APPEARANCE,URINE SLIGHTLY CLOUDY (CLEAR); BILIRUBIN,URINE SMALL (NEGATIVE); COLOR,URINE DARK YELLOW (YELLOW); GLUCOSE,URINE NEGATIVE (NEGATIVE); KETONES,URINE 15 (NEGATIVE); LEUKOCYTE ESTERASE,URINE NEGATIVE (NEGATIVE); NITRITE,URINE NEGATIVE (NEGATIVE); OCCULT BLOOD,URINE NEGATIVE (NEGATIVE); PROTEIN,URINE 100 (NEGATIVE); UROBILINOGEN,URINE 0.2 mg/dL (0.2-1.0)
[2023-12-15] MEDS: Iopamidol 612 MG/ML 100 ML Bottle IVPUSH ONE (15:04)
[2023-12-15 15:06] LABS: AMORPHOUS SEDIMENT,URINE FEW /HPF (NOT SEEN); BACTERIA,URINE MODERATE /HPF (0-FEW/HPF); EPITHELIAL CELLS,URINE FEW /HPF (NOT SEEN); MUCUS,URINE MODERATE /LPF (NOT SEEN); RBC,URINE 0-5 /HPF (0-5); WBC,URINE 0-5 /HPF (0-5/HPF)
[2023-12-15] MEDS: Magnesium Sulfate/Water Premix 2 GM in Premix Bag 1 BAG IV ONE (15:06)
[2023-12-15 15:18] VITALS: BP 130/67; PULSE 96
[2023-12-15 15:30] LABS: LACTIC ACID 1.8 mmol/L (0.4-2.0)
== END 2023-12-15 16:04 | disposition home or self-care (01) ==
LOC: DL.ED 14:05
DX: I71.40 Abdominal aortic aneurysm, without rupture, unspecified (principal); E83.42 Hypomagnesemia; N28.9 Disorder of kidney and ureter, unspecified; I25.10 Atherosclerotic heart disease of native coronary artery without angina pectoris; I25.2 Old myocardial infarction; I11.0 Hypertensive heart disease with heart failure; I50.9 Heart failure, unspecified; I48.91 Unspecified atrial fibrillation; E78.00 Pure hypercholesterolemia, unspecified; J44.9 Chronic obstructive pulmonary disease, unspecified; K21.9 Gastro-esophageal reflux disease without esophagitis; M19.90 Unspecified osteoarthritis, unspecified site; E11.9 Type 2 diabetes mellitus without complications; E03.9 Hypothyroidism, unspecified; Z90.710 Acquired absence of both cervix and uterus; Z87.891 Personal history of nicotine dependence; Z88.5 Allergy status to narcotic agent; Z88.6 Allergy status to analgesic agent; Z88.0 Allergy status to penicillin; Z91.09 Other allergy status, other than to drugs and biological substances; Z79.82 Long term (current) use of aspirin; Z79.84 Long term (current) use of oral hypoglycemic drugs; Z79.51 Long term (current) use of inhaled steroids; Z79.890 Hormone replacement therapy; Z79.891 Long term (current) use of opiate analgesic; Z79.899 Other long term (current) drug therapy
CPT/HCPCS: 36415; 74177; 80053; 81001; 83605; 83690; 83735; 85025; 87086; 96374; 99284; A9270; J3475; Q9967

== ENCOUNTER 2024-01-14 11:19 | Inpatient (IN) | payer MEDICARE, MEDICAID ==
[2024-01-14] MEDS ORDERED: Sodium Chloride 0.9% 10 ML Syringe FLUSH PRN (11:38)
[2024-01-14 11:52] LABS: BASOPHILS PERCENT AUTO 0.1 % (0.0-1.0); EOSINOPHILS PERCENT AUTO 0.4 % (1.0-3.0); HEMATOCRIT 36.9 % (37.0-47.0); HEMOGLOBIN 11.2 g/dL (12.0-16.0); LYMPHOCYTES PERCENT AUTO 7.6 % (20.5-50.1); MEAN CORPUSCULAR HEMOGLOBIN 26.5 pg (27.0-34.0); MEAN CORPUSCULAR HGB CONC 30.4 g/dL (33.0-35.0); MEAN CORPUSCULAR VOLUME 87.2 fL (80-100); MONOCYTES PERCENT AUTO 2.9 % (2-8); PLATELET COUNT,PLT 314 10^3/uL (150-450); RED BLOOD CELL COUNT 4.23 10^6/uL (4.2-5.4); WHITE BLOOD CELL COUNT,WBC 13.5 10^3/uL (5.0-10.0)
[2024-01-14 12:10] LABS: ALBUMIN 1.7 g/dL (3.4-5.0); ANION GAP 14.8 mEq/L (7-13); BILIRUBIN TOTAL 0.2 mg/dL (0.2-1.0); BUN/CREATININE RATIO 9.6 (No establ ref range); C-REACTIVE PROTEIN 13.69 ng/dL (<=0.50); CALCIUM 8.1 mg/dL (8.5-10.1); CREATININE 1.15 mg/dL (0.55-1.02); EST CRCL DRUG DOSING (CG) 37.73 mL/min; MAGNESIUM 1.4 mg/dL (1.8-2.4); POTASSIUM,K 4.8 mmol/L (3.5-5.1); PROTEIN TOTAL,TP 8.7 g/dL (6.4-8.2)
[2024-01-14 12:11] LABS: A/G RATIO 0.24; LACTIC ACID 1.8 mmol/L (0.4-2.0)
[2024-01-14] MEDS: Magnesium Sulfate/Water Premix 2 GM in Premix Bag 1 BAG IV ONE (12:30)
[2024-01-14] MEDS: Furosemide 40 MG/4 ML VIAL IVPUSH ONE (12:31)
[2024-01-14 12:36] LABS: APPEARANCE,URINE CLEAR (CLEAR); BILIRUBIN,URINE NEGATIVE (NEGATIVE); COLOR,URINE YELLOW (YELLOW); GLUCOSE,URINE NEGATIVE (NEGATIVE); KETONES,URINE NEGATIVE (NEGATIVE); LEUKOCYTE ESTERASE,URINE NEGATIVE (NEGATIVE); NITRITE,URINE NEGATIVE (NEGATIVE); OCCULT BLOOD,URINE NEGATIVE (NEGATIVE); PROTEIN,URINE 30 (NEGATIVE); UROBILINOGEN,URINE 0.2 mg/dL (0.2-1.0)
[2024-01-14] MEDS: Azithromycin 250 MG Tab PO ONE (13:03)
[2024-01-14] MEDS: cefTRIAXone 2 GM Vial IVPUSH ONE (13:03)
[2024-01-14 13:20] LABS: BACTERIA,URINE FEW /HPF (0-FEW/HPF); EPITHELIAL CELLS,URINE RARE /HPF (NOT SEEN); RBC,URINE 0-5 /HPF (0-5); WBC,URINE 0-5 /HPF (0-5/HPF)
[2024-01-14 13:21] LABS: MUCUS,URINE FEW /LPF (NOT SEEN)
[2024-01-14] MEDS ORDERED: Magnesium Hydroxide 400 MG/5 ML Susp 30 ML Cup PO PRN (13:45)
[2024-01-14] MEDS ORDERED: Acetaminophen 325 MG Tab PO PRN (13:45)
[2024-01-14] MEDS ORDERED: Metoclopramide 10 MG/2 ML SDV IV PRN (13:45)
[2024-01-14] MEDS ORDERED: Albuterol/Ipratropium 3.0-0.5 MG/3 ML Neb Soln NEB PRN (13:45)
[2024-01-14] MEDS ORDERED: Naloxone 2 MG/2 ML Syringe IVPUSH PRN (13:45)
[2024-01-14] MEDS ORDERED: hydrALAZINE 20 MG/ML SDV IVPUSH PRN (13:45)
[2024-01-14] MEDS ORDERED: Ondansetron 4 MG/2 ML SDV IVPUSH PRN (13:45)
[2024-01-14] MEDS ORDERED: Polyethylene Glycol 3350 Powder 17 GM Packet PO PRN (13:45)
[2024-01-14] MEDS ORDERED: Metoprolol Tartrate 5 MG/5 ML SDV IVPUSH PRN (13:45)
[2024-01-14] MEDS ORDERED: Sennosides/Docusate Sodium 50-8.6 MG Tab PO PRN (13:45)
[2024-01-14] MEDS ORDERED: Midodrine 5 MG Tab PO PRN (13:49)
[2024-01-14 14:25] LABS: CORONAVIRUS COVID-19 NAA NEGATIVE (NEGATIVE); INFLUENZA A NAA NEGATIVE (NEGATIVE); INFLUENZA B NAA NEGATIVE (NEGATIVE); RESPIRATORY SYNCYTIAL VIR NAA NEGATIVE (NEGATIVE)
[2024-01-14] MEDS: VANCOmycin 1 GM in Sodium Chloride 0.9% 250 ML IV ONE (14:52)
[2024-01-14] MEDS: traMADol 50 MG Tab PO PRN (15:52)
[2024-01-14] MEDS: Lactated Ringers 1,000 ML IV SCH (15:55)
[2024-01-14] MEDS: Formoterol/Mometasone 200-5 MCG 8.8 GM Inhaler INH SCH (17:06)
[2024-01-14] MEDS: Acetaminophen/Butalbital/Caffeine 325-50-40 MG Tab PO PRN (17:38)
[2024-01-14] MEDS: Hydroxychloroquine 200 MG Tab PO SCH (20:34)
[2024-01-14] MEDS: Cefepime 2 GM Vial IVPUSH SCH (20:34)
[2024-01-14] MEDS: guaiFENesin 600 MG Tab.ER PO SCH (20:34)
[2024-01-14] MEDS: HYDROmorphone 0.5 MG/0.5 ML Syringe IVPUSH PRN (23:03)
[2024-01-15] MEDS: Melatonin 3 MG Tab PO PRN (00:47)
[2024-01-15] MEDS: Levothyroxine 112 MCG Tab PO SCH (06:48)
[2024-01-15] MEDS: Pantoprazole 40 MG Tab.CR PO SCH (06:48)
[2024-01-15 07:08] LABS: BASOPHILS PERCENT AUTO 0.2 % (0.0-1.0); EOSINOPHILS PERCENT AUTO 2.4 % (1.0-3.0); HEMATOCRIT 31.3 % (37.0-47.0); HEMOGLOBIN 9.6 g/dL (12.0-16.0); LYMPHOCYTES PERCENT AUTO 15.3 % (20.5-50.1); MEAN CORPUSCULAR HEMOGLOBIN 26.6 pg (27.0-34.0); MEAN CORPUSCULAR HGB CONC 30.7 g/dL (33.0-35.0); MEAN CORPUSCULAR VOLUME 86.7 fL (80-100); MONOCYTES PERCENT AUTO 4.2 % (2-8); NEUTROPHILS PERCENT AUTO 77.9 % (42.2-75.2); PLATELET COUNT,PLT 265 10^3/uL (150-450); RED BLOOD CELL COUNT 3.61 10^6/uL (4.2-5.4); WHITE BLOOD CELL COUNT,WBC 10.5 10^3/uL (5.0-10.0)
[2024-01-15 07:31] LABS: ALBUMIN 1.3 g/dL (3.4-5.0); ANION GAP 13.1 mEq/L (7-13); BILIRUBIN TOTAL 0.2 mg/dL (0.2-1.0); BUN/CREATININE RATIO 13.1 (No establ ref range); C-REACTIVE PROTEIN 13.14 ng/dL (<=0.50); CALCIUM 7.8 mg/dL (8.5-10.1); CREATININE 1.07 mg/dL (0.55-1.02); EST CRCL DRUG DOSING (CG) 39.38 mL/min; MAGNESIUM 1.8 mg/dL (1.8-2.4); POTASSIUM,K 4.1 mmol/L (3.5-5.1); PROTEIN TOTAL,TP 7.4 g/dL (6.4-8.2)
[2024-01-15 07:41] LABS: A/G RATIO 0.21
[2024-01-15] MEDS: Ascorbic Acid 500 MG Tab PO SCH (10:15)
[2024-01-15] MEDS: Loratadine 10 MG Tab PO SCH (10:15)
[2024-01-15] MEDS: Enoxaparin 40 MG/0.4 ML Syringe SUBCUT SCH (10:16)
[2024-01-15] MEDS: Aspirin 81 MG Tab.EC PO SCH (10:16)
[2024-01-15] MEDS: Folic Acid 1 MG Tab PO SCH (10:16)
[2024-01-15] MEDS: VANCOmycin 1 GM in Sodium Chloride 0.9% 250 ML IV SCH (15:15)
[2024-01-15] MEDS: Ferrous Sulfate 325 MG Tab PO SCH (20:21)
[2024-01-15] MEDS: Gabapentin 300 MG Cap PO SCH (20:21)
[2024-01-16 07:09] LABS: BASOPHILS PERCENT AUTO 0.1 % (0.0-1.0); EOSINOPHILS PERCENT AUTO 3.5 % (1.0-3.0); HEMATOCRIT 31.2 % (37.0-47.0); HEMOGLOBIN 9.3 g/dL (12.0-16.0); MEAN CORPUSCULAR HEMOGLOBIN 26.2 pg (27.0-34.0); MEAN CORPUSCULAR HGB CONC 29.8 g/dL (33.0-35.0); MEAN CORPUSCULAR VOLUME 87.9 fL (80-100); MONOCYTES PERCENT AUTO 4.4 % (2-8); PLATELET COUNT,PLT 260 10^3/uL (150-450); RED BLOOD CELL COUNT 3.55 10^6/uL (4.2-5.4); WHITE BLOOD CELL COUNT,WBC 9.9 10^3/uL (5.0-10.0)
[2024-01-16 07:24] LABS: ALBUMIN 1.2 g/dL (3.4-5.0); ANION GAP 11.1 mEq/L (7-13); BILIRUBIN TOTAL 0.2 mg/dL (0.2-1.0); BUN/CREATININE RATIO 12.4 (No establ ref range); C-REACTIVE PROTEIN 10.48 ng/dL (<=0.50); CALCIUM 7.6 mg/dL (8.5-10.1); CREATININE 0.89 mg/dL (0.55-1.02); EST CRCL DRUG DOSING (CG) 44.54 mL/min; MAGNESIUM 1.7 mg/dL (1.8-2.4); POTASSIUM,K 4.1 mmol/L (3.5-5.1)
[2024-01-16 07:26] LABS: A/G RATIO 0.21
[2024-01-16] MEDS ORDERED: Non-Formulary Medication 1 Each (Sacubitril/Valsartan [Entresto 24 Mg-26 Mg Tablet] 1 EACH PO SCH (09:00)
[2024-01-16] MEDS: Magnesium Sulfate/Water Premix 2 GM in Premix Bag 1 BAG IV ONE (09:26)
[2024-01-16] MEDS: Furosemide 40 MG Tab PO SCH (09:31)
[2024-01-16] MEDS: VANCOmycin 750 MG in Sodium Chloride 0.9% 250 ML IV SCH (14:13)
[2024-01-16] MEDS: Midodrine 5 MG Tab PO ONE (14:19)
[2024-01-16] MEDS: Dexamethasone 4 MG/ML SDV IVPUSH ONE (21:33)
[2024-01-16] MEDS: Midodrine 5 MG Tab PO SCH (21:33)
[2024-01-17 06:33] LABS: BASOPHILS PERCENT AUTO 0.1 % (0.0-1.0); HEMATOCRIT 33.6 % (37.0-47.0); HEMOGLOBIN 10.1 g/dL (12.0-16.0); LYMPHOCYTES PERCENT AUTO 13.4 % (20.5-50.1); MEAN CORPUSCULAR HEMOGLOBIN 26.5 pg (27.0-34.0); MEAN CORPUSCULAR HGB CONC 30.1 g/dL (33.0-35.0); MEAN CORPUSCULAR VOLUME 88.2 fL (80-100); MONOCYTES PERCENT AUTO 0.9 % (2-8); NEUTROPHILS PERCENT AUTO 85.6 % (42.2-75.2); PLATELET COUNT,PLT 310 10^3/uL (150-450); RED BLOOD CELL COUNT 3.81 10^6/uL (4.2-5.4); WHITE BLOOD CELL COUNT,WBC 9.1 10^3/uL (5.0-10.0)
[2024-01-17 06:57] LABS: ALANINE AMINOTRANSFERASE,ALT 10 U/L (14-59); ALBUMIN 1.4 g/dL (3.4-5.0); ALKALINE PHOSPHATASE 90 U/L (46-116); ANION GAP 14.7 mEq/L (7-13); ASPARTATE AMNIOTRANSFERASE,AST 15 U/L (15-37); BILIRUBIN TOTAL 0.2 mg/dL (0.2-1.0); BLOOD UREA NITROGEN,BUN 14 mg/dL (7-18); BUN/CREATININE RATIO 12.6 (No establ ref range); CALCIUM 7.7 mg/dL (8.5-10.1); CARBON DIOXIDE,CO2 25 mmol/L (21-32); CHLORIDE,CL 102 mmol/L (98-107); CREATININE 1.11 mg/dL (0.55-1.02); EST CRCL DRUG DOSING (CG) 37.33 mL/min; MAGNESIUM 2.1 mg/dL (1.8-2.4); POTASSIUM,K 4.7 mmol/L (3.5-5.1); PROTEIN TOTAL,TP 7.7 g/dL (6.4-8.2); SODIUM,NA 137 mmol/L (136-145)
[2024-01-17 07:04] LABS: GLUCOSE RANDOM 179 mg/dL (70-99)
[2024-01-17 07:11] LABS: A/G RATIO 0.22; ESTIMATED GFR 54 mL/min (>=60)
[2024-01-17 07:16] LABS: B-TYPE NATRIURETIC PEPTIDE,BNP > 5000 pg/ml (0-100)
[2024-01-17] MEDS: Dexamethasone 2 MG Tab PO SCH (09:24)
[2024-01-18 06:36] LABS: HEMATOCRIT 31.5 % (37.0-47.0); HEMOGLOBIN 9.6 g/dL (12.0-16.0); MEAN CORPUSCULAR HEMOGLOBIN 26.9 pg (27.0-34.0); MEAN CORPUSCULAR HGB CONC 30.5 g/dL (33.0-35.0); MEAN CORPUSCULAR VOLUME 88.2 fL (80-100); PLATELET COUNT,PLT 330 10^3/uL (150-450); RED BLOOD CELL COUNT 3.57 10^6/uL (4.2-5.4); WHITE BLOOD CELL COUNT,WBC 9.1 10^3/uL (5.0-10.0)
[2024-01-18 06:43] LABS: BASOPHILS PERCENT AUTO 0.1 % (0.0-1.0); EOSINOPHILS PERCENT AUTO 0.1 % (1.0-3.0); LYMPHOCYTES PERCENT AUTO 26.8 % (20.5-50.1); MONOCYTES PERCENT AUTO 5.7 % (2-8); NEUTROPHILS PERCENT AUTO 67.3 % (42.2-75.2)
[2024-01-18 07:01] LABS: ALBUMIN 1.4 g/dL (3.4-5.0); ANION GAP 15.6 mEq/L (7-13); BILIRUBIN TOTAL 0.1 mg/dL (0.2-1.0); BUN/CREATININE RATIO 15.3 (No establ ref range); C-REACTIVE PROTEIN 4.93 ng/dL (<=0.50); CALCIUM 7.8 mg/dL (8.5-10.1); CREATININE 1.11 mg/dL (0.55-1.02); EST CRCL DRUG DOSING (CG) 39.09 mL/min; MAGNESIUM 2.1 mg/dL (1.8-2.4); POTASSIUM,K 4.6 mmol/L (3.5-5.1); PROTEIN TOTAL,TP 7.4 g/dL (6.4-8.2)
[2024-01-18 07:04] LABS: A/G RATIO 0.23
[2024-01-18 07:39] VITALS: BP 145/85; PULSE 84
[2024-01-18 08:32] LABS: LYMPHOCYTES PERCENT MAN 29 % (20-50); MONOCYTES PERCENT MAN 4 % (2-8); SEG NEUTROPHILS PERCENT MAN 67 % (42-75)
[2024-01-18 08:33] LABS: ANISOCYTOSIS 2+ MODERATE; HYPOCHROMASIA 1+ SLIGHT; PLATELET COUNT ESTIMATE ADEQUATE
== END 2024-01-18 11:43 | disposition home or self-care (01) | DRG 871 ==
LOC: DL.ED 11:19 → DL.MS 12:35
PROVIDERS: ADMIT Internal Medicine; ATTEND Internal Medicine
PROC: 5A09357 Assistance with Respiratory Ventilation, Less than 24 Consecutive Hours, Continuous Positive Airway Pressure (ICD-10-PCS; principal; 2024-01-14)
PROC: 0T9B70Z Drainage of Bladder with Drainage Device, Via Natural or Artificial Opening (ICD-10-PCS; 2024-01-14)
PROC: 3E03329 Introduction of Other Anti-infective into Peripheral Vein, Percutaneous Approach (ICD-10-PCS; 2024-01-14)
DX: A41.9 Sepsis, unspecified organism (principal); I50.9 Heart failure, unspecified; R09.02 Hypoxemia; E43 Unspecified severe protein-calorie malnutrition; I50.23 Acute on chronic systolic (congestive) heart failure; E78.00 Pure hypercholesterolemia, unspecified; J18.9 Pneumonia, unspecified organism; J96.21 Acute and chronic respiratory failure with hypoxia; E11.9 Type 2 diabetes mellitus without complications; N17.9 Acute kidney failure, unspecified; Z68.1 Body mass index [BMI] 19.9 or less, adult; D84.9 Immunodeficiency, unspecified; I42.9 Cardiomyopathy, unspecified; Z79.890 Hormone replacement therapy; I11.0 Hypertensive heart disease with heart failure; I25.10 Atherosclerotic heart disease of native coronary artery without angina pectoris; Z91.09 Other allergy status, other than to drugs and biological substances; J44.9 Chronic obstructive pulmonary disease, unspecified; H54.7 Unspecified visual loss; I48.91 Unspecified atrial fibrillation; K21.9 Gastro-esophageal reflux disease without esophagitis; E03.9 Hypothyroidism, unspecified; G43.909 Migraine, unspecified, not intractable, without status migrainosus; M54.2 Cervicalgia; G89.29 Other chronic pain; Z96.649 Presence of unspecified artificial hip joint; I27.20 Pulmonary hypertension, unspecified; M05.9 Rheumatoid arthritis with rheumatoid factor, unspecified; E11.65 Type 2 diabetes mellitus with hyperglycemia; E83.42 Hypomagnesemia; E88.09 Other disorders of plasma-protein metabolism, not elsewhere classified; Z95.1 Presence of aortocoronary bypass graft; Z88.5 Allergy status to narcotic agent; Z88.0 Allergy status to penicillin; Z79.899 Other long term (current) drug therapy; Z79.84 Long term (current) use of oral hypoglycemic drugs; Z79.51 Long term (current) use of inhaled steroids; Z79.82 Long term (current) use of aspirin; I25.2 Old myocardial infarction; Z90.710 Acquired absence of both cervix and uterus; Z99.81 Dependence on supplemental oxygen; Z87.891 Personal history of nicotine dependence
CPT/HCPCS: 0241U; 36415; 51702; 71045; 80053; 80202; 81001; 83605; 83735; 83880; 84145; 84484; 85025; 86140; 93005; 94660; 94664; 96374; 96375; 99223; 99232; 99233; 99238; 99285; 93010; A9270-GY; J0692; J0696; J1100; J1171; J1650; J1940; J3370; J3475; J7050; J7120; J8540

== ENCOUNTER 2024-03-15 11:44 | Inpatient (IN) | payer MEDICARE, MEDICAID, OTHER ==
[2024-03-15] MEDS ORDERED: Sodium Chloride 0.9% 10 ML Syringe FLUSH PRN (11:49)
[2024-03-15 12:09] LABS: EOSINOPHILS PERCENT AUTO 1.1 % (1.0-3.0); HEMATOCRIT 31.6 % (37.0-47.0); HEMOGLOBIN 9.5 g/dL (12.0-16.0); LYMPHOCYTES PERCENT AUTO 14.7 % (20.5-50.1); MEAN CORPUSCULAR HEMOGLOBIN 28.2 pg (27.0-34.0); MEAN CORPUSCULAR HGB CONC 30.1 g/dL (33.0-35.0); MEAN CORPUSCULAR VOLUME 93.8 fL (80-100); MONOCYTES PERCENT AUTO 2.4 % (2-8); NEUTROPHILS PERCENT AUTO 81.8 % (42.2-75.2); PLATELET COUNT,PLT 299 10^3/uL (150-450); RED BLOOD CELL COUNT 3.37 10^6/uL (4.2-5.4); WHITE BLOOD CELL COUNT,WBC 12.4 10^3/uL (5.0-10.0)
[2024-03-15] MEDS: methylPREDNISolone Sodium Succinate 125 MG/2 ML SDV IVPUSH ONE (12:10)
[2024-03-15] MEDS: Albuterol/Ipratropium 3.0-0.5 MG/3 ML Neb Soln NEB ONE (12:10)
[2024-03-15] MEDS: Acetaminophen 500 MG Tab PO ONE (12:10)
[2024-03-15] MEDS: Sodium Chloride 0.9% 500 ML IV SCH (12:11)
[2024-03-15 12:25] LABS: PROTHROMBIN TIME 10.7 SEC (9.0-12.0); PTT,PARTIAL THROMBOPLSTIN TIME 31.6 SEC (22.0-34.0)
[2024-03-15 12:29] LABS: ALBUMIN 1.3 g/dL (3.4-5.0); ANION GAP 15.2 mEq/L (7-13); BILIRUBIN TOTAL 0.2 mg/dL (0.2-1.0); BUN/CREATININE RATIO 8.2 (No establ ref range); C-REACTIVE PROTEIN 21.16 ng/dL (<=0.50); CALCIUM 7.8 mg/dL (8.5-10.1); CREATININE 0.97 mg/dL (0.55-1.02); EST CRCL DRUG DOSING (CG) 42.31 mL/min; MAGNESIUM 1.4 mg/dL (1.8-2.4); POTASSIUM,K 4.2 mmol/L (3.5-5.1); PROTEIN TOTAL,TP 6.9 g/dL (6.4-8.2)
[2024-03-15 12:43] LABS: A/G RATIO 0.23
[2024-03-15] MEDS: VANCOmycin 750 MG in Sodium Chloride 0.9% 250 ML IV ONE (13:05)
[2024-03-15] MEDS ORDERED: 50% Dextrose in Water 50 ML Syringe IVPUSH PRN (13:59)
[2024-03-15] MEDS ORDERED: Glucagon,Human Recombinant 1 MG Vial IM PRN (13:59)
[2024-03-15] MEDS ORDERED: Docusate Sodium 100 MG Cap PO PRN (14:00)
[2024-03-15] MEDS ORDERED: Bisacodyl 5 MG Tab PO PRN (14:00)
[2024-03-15] MEDS ORDERED: Ondansetron 4 MG/2 ML SDV IVPUSH PRN (14:00)
[2024-03-15] MEDS ORDERED: Polyethylene Glycol 3350 Powder 17 GM Packet PO PRN (14:00)
[2024-03-15] MEDS ORDERED: Albuterol/Ipratropium 3.0-0.5 MG/3 ML Neb Soln NEB PRN (14:00)
[2024-03-15] MEDS ORDERED: Magnesium Sulfate/Water Premix 2 GM in Premix Bag 1 BAG IV ONE (14:04)
[2024-03-15] MEDS: cefTRIAXone 1 GM Vial IVPUSH SCH (16:17)
[2024-03-15] MEDS: Piperacillin/Tazobactam 3.375 GM in Sodium Chloride 0.9% 100 ML IV ONE (16:20)
[2024-03-15] MEDS: Azithromycin 500 MG in Sodium Chloride 0.9% 250 ML IV SCH (16:59)
[2024-03-15] MEDS: Insulin Lispro 100 Units/ML 3 ML Vial SUBCUT SCH (17:06)
[2024-03-15] MEDS ORDERED: Piperacillin/Tazobactam 3.375 GM in Sodium Chloride 0.9% 100 ML IV SCH (18:00)
[2024-03-15] MEDS: Magnesium Sulfate/Water Premix 2 GM in Premix Bag 1 BAG IV ONE (18:19)
[2024-03-15] MEDS: methylPREDNISolone Sodium Succinate 125 MG/2 ML SDV IVPUSH SCH (20:46)
[2024-03-15] MEDS: Hydroxychloroquine 200 MG Tab PO SCH (20:49)
[2024-03-15] MEDS: Melatonin 3 MG Tab PO PRN (20:49)
[2024-03-15] MEDS: Formoterol/Mometasone 200-5 MCG 8.8 GM Inhaler INH SCH (20:59)
[2024-03-15] MEDS ORDERED: Non-Formulary Medication 1 Each (Fluticasone Propion/Salmeterol [Fluticasone-Salmeterol 25 INH SCH (21:00)
[2024-03-15] MEDS: Acetaminophen 325 MG Tab PO PRN (22:49)
[2024-03-15] MEDS: Benzocaine/Cetylpyridinium/Menthol Lozenge MUCMEM PRN (22:49)
[2024-03-16] MEDS: Levothyroxine 112 MCG Tab PO SCH (05:11)
[2024-03-16 06:50] LABS: MEAN CORPUSCULAR HEMOGLOBIN 28.7 pg (27.0-34.0); MEAN CORPUSCULAR VOLUME 95.5 fL (80-100); PLATELET COUNT,PLT 289 10^3/uL (150-450); RED BLOOD CELL COUNT 3.14 10^6/uL (4.2-5.4); WHITE BLOOD CELL COUNT,WBC 8.9 10^3/uL (5.0-10.0)
[2024-03-16 07:03] LABS: BASOPHILS PERCENT AUTO 0.1 % (0.0-1.0); NEUTROPHILS PERCENT AUTO 87.9 % (42.2-75.2)
[2024-03-16 07:13] LABS: ANION GAP 13.5 mEq/L (7-13); CALCIUM 8.1 mg/dL (8.5-10.1); CREATININE 0.8 mg/dL (0.55-1.02); EST CRCL DRUG DOSING (CG) 51.16 mL/min; MAGNESIUM 2.2 mg/dL (1.8-2.4); POTASSIUM,K 4.5 mmol/L (3.5-5.1)
[2024-03-16 07:41] LABS: BAND PERCENT MAN 1 %; LYMPHOCYTES % ATYPICAL MANUAL 1 %; LYMPHOCYTES PERCENT MAN 8 % (20-50); MONOCYTES PERCENT MAN 3 % (2-8); SEG NEUTROPHILS PERCENT MAN 87 % (42-75)
[2024-03-16] MEDS: Aspirin 81 MG Tab.EC PO SCH (09:01)
[2024-03-16] MEDS: Metoprolol Succinate 25 MG Tab.ER PO SCH (09:01)
[2024-03-16] MEDS: Enoxaparin 40 MG/0.4 ML Syringe SUBCUT SCH (09:03)
[2024-03-16] MEDS: Ascorbic Acid 500 MG Tab PO SCH (09:16)
[2024-03-16] MEDS: Folic Acid 1 MG Tab PO SCH (09:16)
[2024-03-16] MEDS: guaiFENesin 600 MG Tab.ER PO SCH (09:16)
[2024-03-16] MEDS: Ferrous Sulfate 325 MG Tab PO SCH (09:16)
[2024-03-16] MEDS: Saccharomyces Boulardii (Probiotic) 250 MG Cap PO SCH (09:16)
[2024-03-16] MEDS: Gabapentin 300 MG Cap PO SCH (09:16)
[2024-03-16] MEDS ORDERED: VANCOmycin 1 GM in Sodium Chloride 0.9% 250 ML IV SCH (10:00)
[2024-03-16] MEDS: Pantoprazole 40 MG Tab.CR PO SCH (12:42)
[2024-03-16] MEDS: Acetaminophen/HYDROcodone 325-5 MG Tab PO PRN (18:06)
[2024-03-16] MEDS: Simvastatin 10 MG Tab PO SCH (20:30)
[2024-03-17 06:26] LABS: HEMATOCRIT 31.6 % (37.0-47.0); HEMOGLOBIN 9.3 g/dL (12.0-16.0); LYMPHOCYTES PERCENT AUTO 11.3 % (20.5-50.1); MEAN CORPUSCULAR HEMOGLOBIN 28.2 pg (27.0-34.0); MEAN CORPUSCULAR HGB CONC 29.4 g/dL (33.0-35.0); MEAN CORPUSCULAR VOLUME 95.8 fL (80-100); NEUTROPHILS PERCENT AUTO 85.7 % (42.2-75.2); PLATELET COUNT,PLT 344 10^3/uL (150-450); WHITE BLOOD CELL COUNT,WBC 9.1 10^3/uL (5.0-10.0)
[2024-03-17 06:47] LABS: ANION GAP 12.1 mEq/L (7-13); C-REACTIVE PROTEIN 9.68 ng/dL (<=0.50); CALCIUM 8.1 mg/dL (8.5-10.1); CREATININE 1.2 mg/dL (0.55-1.02); EST CRCL DRUG DOSING (CG) 35.18 mL/min; POTASSIUM,K 5.1 mmol/L (3.5-5.1)
[2024-03-17] MEDS: metFORMIN 500 MG Tab PO SCH (09:28)
[2024-03-17 11:18] VITALS: BP 124/68; PULSE 81
[2024-03-17] MEDS: Non-Formulary Medication 1 Each (Sacubitril/Valsartan [Entresto 24 Mg-26 Mg Tablet] 1 EACH PO SCH (12:05)
[2024-03-17] MEDS: Azithromycin 250 MG Tab PO SCH (12:05)
== END 2024-03-17 13:51 | disposition home or self-care (01) | DRG 177 ==
LOC: DL.ED 11:44 → DL.MS 12:55
PROVIDERS: ADMIT Internal Medicine; ATTEND Internal Medicine
DX: U07.1 COVID-19 (principal); J18.9 Pneumonia, unspecified organism; J96.21 Acute and chronic respiratory failure with hypoxia; I50.9 Heart failure, unspecified; E87.1 Hypo-osmolality and hyponatremia; I50.22 Chronic systolic (congestive) heart failure; J44.0 Chronic obstructive pulmonary disease with (acute) lower respiratory infection; H54.7 Unspecified visual loss; I48.91 Unspecified atrial fibrillation; I25.10 Atherosclerotic heart disease of native coronary artery without angina pectoris; E78.00 Pure hypercholesterolemia, unspecified; Z88.5 Allergy status to narcotic agent; Z91.048 Other nonmedicinal substance allergy status; Z79.82 Long term (current) use of aspirin; Z79.84 Long term (current) use of oral hypoglycemic drugs; I11.0 Hypertensive heart disease with heart failure; Z79.890 Hormone replacement therapy; I25.2 Old myocardial infarction; M19.90 Unspecified osteoarthritis, unspecified site; K21.9 Gastro-esophageal reflux disease without esophagitis; M54.9 Dorsalgia, unspecified; G43.909 Migraine, unspecified, not intractable, without status migrainosus; E11.9 Type 2 diabetes mellitus without complications; E03.9 Hypothyroidism, unspecified; G89.4 Chronic pain syndrome; M06.9 Rheumatoid arthritis, unspecified; I27.20 Pulmonary hypertension, unspecified; Z98.891 History of uterine scar from previous surgery; Z90.710 Acquired absence of both cervix and uterus; Z96.649 Presence of unspecified artificial hip joint; Z88.0 Allergy status to penicillin; Z95.5 Presence of coronary angioplasty implant and graft; Z72.0 Tobacco use; Z79.899 Other long term (current) drug therapy; Z88.8 Allergy status to other drugs, medicaments and biological substances
CPT/HCPCS: 36415; 71045; 80053; 83605; 83735; 83880; 84484; 85025; 85610; 85730; 86140; 87040 ×2; 87428; 93005; 94640; A9270; J2919; J7040; 80048; 80202; 82947; 97165-GO; 99223; 99233; 99239; J0456; J0696; J1650; J1815-GY; J2543; J3370; J3475; J3490; J7050; J7620-GY

== ENCOUNTER 2024-07-17 01:45 | Emergency (ER) | payer MEDICARE, MEDICAID ==
[2024-07-17] MEDS ORDERED: Sodium Chloride 0.9% 10 ML Syringe FLUSH PRN (02:07)
[2024-07-17 02:20] LABS: HEMATOCRIT 33.6 % (37.0-47.0); HEMOGLOBIN 9.9 g/dL (12.0-16.0); MEAN CORPUSCULAR HEMOGLOBIN 28.6 pg (27.0-34.0); MEAN CORPUSCULAR HGB CONC 29.5 g/dL (33.0-35.0); MEAN CORPUSCULAR VOLUME 97.1 fL (80-100); PLATELET COUNT,PLT 201 10^3/uL (150-450); RED BLOOD CELL COUNT 3.46 10^6/uL (4.2-5.4); WHITE BLOOD CELL COUNT,WBC 11.6 10^3/uL (5.0-10.0)
[2024-07-17] MEDS: Sodium Chloride 0.9% 1,000 ML IV ONE (02:22)
[2024-07-17] MEDS: Albuterol/Ipratropium 3.0-0.5 MG/3 ML Neb Soln NEB ONE (02:22)
[2024-07-17] MEDS: methylPREDNISolone Sodium Succinate 125 MG/2 ML SDV IVPUSH ONE (02:25)
[2024-07-17 02:26] LABS: LYMPHOCYTES PERCENT AUTO 25.3 % (20.5-50.1); NEUTROPHILS PERCENT AUTO 69.9 % (42.2-75.2)
[2024-07-17 02:27] LABS: BASOPHILS PERCENT AUTO 0.1 % (0.0-1.0); EOSINOPHILS PERCENT AUTO 0.7 % (1.0-3.0)
[2024-07-17 02:32] LABS: BASE EXCESS VENOUS -1.02 mmol/l ((-2)-(+3)); BICARBONATE,VENOUS 25 mmol/l (19-25); O2 DELIVERY DEVICE OM; O2 SATURATION VENOUS 85.3 % (60-80); PCO2 VENOUS 52 mmHg (41-51); PO2 VENOUS 60 mmHg (35-42)
[2024-07-17 02:39] LABS: INR 1.1 (0.9-1.2); PROTHROMBIN TIME 11.1 SEC (9.0-12.0); PTT,PARTIAL THROMBOPLSTIN TIME 30.3 SEC (22.0-34.0)
[2024-07-17] MEDS ORDERED: Magnesium Sulfate (4.06 MEQ/ML) 1 GM/2 ML SDV IM ONE (02:50)
[2024-07-17 02:53] LABS: B-TYPE NATRIURETIC PEPTIDE,BNP > 5000 pg/ml (0-100)
[2024-07-17 02:59] LABS: ANION GAP 12.6 mEq/L (7-13); EST CRCL DRUG DOSING (CG) 54.43 mL/min
[2024-07-17 03:00] LABS: CALCIUM 1.03 mmol/l (1.15-1.33)
[2024-07-17] MEDS: Levofloxacin/Dextrose 5%-Water 750 MG in Premix Bag 1 BAG IV ONE (03:00)
[2024-07-17] MEDS ORDERED: Magnesium Sulfate/D5W 1 GM/100 ML BAG IV ONE (03:02)
[2024-07-17 03:03] LABS: LACTIC ACID 4.5 mmol/L (0.4-2.0)
[2024-07-17] MEDS: Magnesium Sulfat/D5W 1GM/100ML 100 ML IV ONE (03:13)
[2024-07-17 03:33] LABS: CARBON DIOXIDE,CO2 22 mmol/L (23-30); CHLORIDE,CL 113 mmol/L (98-107); POTASSIUM,K 4.6 mmol/L (3.5-4.5); SODIUM,NA 143 mmol/L (138-146)
[2024-07-17 03:34] LABS: BLOOD UREA NITROGEN,BUN 9 mg/dL (8-26); CREATININE 0.79 mg/dL (0.51-1.19); ESTIMATED GFR 82 mL/min (>=60); GLUCOSE RANDOM 160 mg/dL (74-100)
[2024-07-17 04:57] LABS: BAND PERCENT MAN 1 %; LYMPHOCYTES PERCENT MAN 25 % (20-50); MONOCYTES PERCENT MAN 5 % (2-8); SEG NEUTROPHILS PERCENT MAN 69 % (42-75)
[2024-07-17] MEDS: Iopamidol 755 Mg/ML 100 ML Bottle IVPUSH ONE (05:00)
[2024-07-17] MEDS: methylPREDNISolone Sodium Succinate 125 MG/2 ML SDV IM ONE (07:18)
[2024-07-17 07:28] VITALS: BP 129/74; PULSE 79
== END 2024-07-17 08:44 ==
LOC: DL.ED 01:45
DX: J84.10 Pulmonary fibrosis, unspecified (principal); J44.1 Chronic obstructive pulmonary disease with (acute) exacerbation; J44.0 Chronic obstructive pulmonary disease with (acute) lower respiratory infection; J18.1 Lobar pneumonia, unspecified organism; I25.10 Atherosclerotic heart disease of native coronary artery without angina pectoris; I11.0 Hypertensive heart disease with heart failure; I50.9 Heart failure, unspecified; E78.00 Pure hypercholesterolemia, unspecified; I25.2 Old myocardial infarction; I48.91 Unspecified atrial fibrillation; K21.9 Gastro-esophageal reflux disease without esophagitis; E11.9 Type 2 diabetes mellitus without complications; E03.9 Hypothyroidism, unspecified; Z90.710 Acquired absence of both cervix and uterus; Z79.899 Other long term (current) drug therapy; Z79.82 Long term (current) use of aspirin; Z79.84 Long term (current) use of oral hypoglycemic drugs; Z88.5 Allergy status to narcotic agent; Z88.0 Allergy status to penicillin; Z91.013 Allergy to seafood
CPT/HCPCS: 36415; 71045; 71275; 80048; 82803; 83605; 83880; 84484; 85025; 85379; 85610; 85730; 87040; 87428-QW; 93005; 93010; 94762; 96361; 96365; 96366; 96368; 96375; 99284; 99285-25; A9270-GY; J1956; J2919; J3475; J7030; Q9967

== ENCOUNTER 2024-10-22 18:29 | Emergency (ER) | payer MEDICARE, MEDICAID ==
[2024-10-22 19:30] LABS: BASOPHILS PERCENT AUTO 0.0 % (0.0-1.0); EOSINOPHILS PERCENT AUTO 0.8 % (1.0-3.0); LYMPHOCYTES PERCENT AUTO 10.7 % (20.5-50.1); MONOCYTES PERCENT AUTO 3.5 % (2-8); NEUTROPHILS PERCENT AUTO 85.0 % (42.2-75.2); O2 DELIVERY DEVICE NON REBR MASK; PLATELET COUNT,PLT 200 10^3/uL (150-450); RED BLOOD CELL COUNT 4.06 10^6/uL (4.2-5.4); WHITE BLOOD CELL COUNT,WBC 11.1 10^3/uL (5.0-10.0)
[2024-10-22 19:32] LABS: BASE EXCESS VENOUS 6.5 mmol/l ((-2)-(+3)); BICARBONATE,VENOUS 33 mmol/l (19-25); O2 SATURATION VENOUS 38.7 % (60-80); PH,VENOUS 7.35 (7.31-7.41); PO2 VENOUS 34 mmHg (35-42)
[2024-10-22 19:34] LABS: PCO2 VENOUS 61 mmHg (41-51)
[2024-10-22] MEDS: Dexamethasone 4 MG/ML SDV IVPUSH ONE (19:36)
[2024-10-22 19:45] LABS: ALANINE AMINOTRANSFERASE,ALT 7.0 U/L (14-59); ASPARTATE AMNIOTRANSFERASE,AST 17.0 U/L (15-37); BILIRUBIN TOTAL 0.4 mg/dL (0.2-1.0); BLOOD UREA NITROGEN,BUN 21.0 mg/dL (7-18); CARBON DIOXIDE,CO2 33.0 mmol/L (21-32); CHLORIDE,CL 92.0 mmol/L (98-107); CREATININE 1.14 mg/dL (0.55-1.02); EST CRCL DRUG DOSING (CG) 35.17 mL/min; GLUCOSE RANDOM 129.0 mg/dL (70-99); POTASSIUM,K 4.6 mmol/L (3.5-5.1); PROTEIN TOTAL,TP 9.8 g/dL (6.4-8.2); SODIUM,NA 132.0 mmol/L (136-145)
[2024-10-22 19:46] LABS: BAND PERCENT MAN 7 %; LYMPHOCYTES PERCENT MAN 12 % (20-50); SEG NEUTROPHILS PERCENT MAN 78 % (42-75)
[2024-10-22 19:47] LABS: EOSINOPHILS PERCENT MAN 1 % (1-3); MONOCYTES PERCENT MAN 2 % (2-8)
[2024-10-22 19:48] LABS: LACTIC ACID 2.1 mmol/L (0.4-2.0)
[2024-10-22 19:50] LABS: A/G RATIO 0.34; ESTIMATED GFR 52.0 mL/min (>=60)
[2024-10-22 20:07] LABS: B-TYPE NATRIURETIC PEPTIDE,BNP 4020.0 pg/ml (0-100)
[2024-10-22] MEDS: Magnesium Sulfate 2 GM/50 mL 2 GM in Premix Bag 1 BAG IV ONE (20:40)
[2024-10-22 21:44] LABS: APPEARANCE,URINE CLEAR (CLEAR); GLUCOSE,URINE NEGATIVE (NEGATIVE); OCCULT BLOOD,URINE NEGATIVE (NEGATIVE)
[2024-10-22 22:34] VITALS: BP 110/68; PULSE 88
== END 2024-10-22 22:00 ==
LOC: DL.ED 18:29
DX: J84.10 Pulmonary fibrosis, unspecified (principal); J44.0 Chronic obstructive pulmonary disease with (acute) lower respiratory infection; E83.42 Hypomagnesemia; J18.9 Pneumonia, unspecified organism; I11.0 Hypertensive heart disease with heart failure; I50.9 Heart failure, unspecified; I48.91 Unspecified atrial fibrillation; E78.00 Pure hypercholesterolemia, unspecified; I25.2 Old myocardial infarction; J44.9 Chronic obstructive pulmonary disease, unspecified; K21.9 Gastro-esophageal reflux disease without esophagitis; E11.9 Type 2 diabetes mellitus without complications; E03.9 Hypothyroidism, unspecified; Z88.5 Allergy status to narcotic agent; Z88.0 Allergy status to penicillin; Z91.09 Other allergy status, other than to drugs and biological substances; Z79.899 Other long term (current) drug therapy; Z79.84 Long term (current) use of oral hypoglycemic drugs
CPT/HCPCS: 36415; 71045; 80053; 81003; 82803; 83605; 83735; 83880; 84484; 85025; 87040; 87428; 93005; 96365; 96375; 99285; A9270; J0696; J1100; J3475

== ENCOUNTER 2024-11-06 21:39 | Inpatient (IN) | payer MEDICARE, MEDICAID ==
[2024-11-06 22:41] LABS: BASOPHILS PERCENT AUTO 0.2 % (0.0-1.0); EOSINOPHILS PERCENT AUTO 1.9 % (1.0-3.0); LYMPHOCYTES PERCENT AUTO 13.3 % (20.5-50.1); MONOCYTES PERCENT AUTO 8.7 % (2-8); NEUTROPHILS PERCENT AUTO 75.9 % (42.2-75.2); PLATELET COUNT,PLT 246 10^3/uL (150-450); RED BLOOD CELL COUNT 3.51 10^6/uL (4.2-5.4); WHITE BLOOD CELL COUNT,WBC 8.5 10^3/uL (5.0-10.0)
[2024-11-06 22:59] LABS: ALANINE AMINOTRANSFERASE,ALT 16.0 U/L (14-59); BILIRUBIN TOTAL 0.4 mg/dL (0.2-1.0); BLOOD UREA NITROGEN,BUN 17.0 mg/dL (7-18); CARBON DIOXIDE,CO2 33.0 mmol/L (21-32); CHLORIDE,CL 98.0 mmol/L (98-107); CREATININE 0.89 mg/dL (0.55-1.02); EST CRCL DRUG DOSING (CG) 42.51 mL/min; GLUCOSE RANDOM 174.0 mg/dL (70-99); PROTEIN TOTAL,TP 9.0 g/dL (6.4-8.2); SODIUM,NA 135.0 mmol/L (136-145)
[2024-11-06 23:02] LABS: B-TYPE NATRIURETIC PEPTIDE,BNP 2120.0 pg/ml (0-100)
[2024-11-06 23:04] LABS: LACTIC ACID 1.5 mmol/L (0.4-2.0)
[2024-11-06 23:13] LABS: A/G RATIO 0.36; ESTIMATED GFR 71.0 mL/min (>=60)
[2024-11-06 23:14] LABS: POTASSIUM,K 3.9 mmol/L (3.5-5.1)
[2024-11-06 23:15] LABS: ASPARTATE AMNIOTRANSFERASE,AST 22.0 U/L (15-37)
[2024-11-07] MEDS ORDERED: Sennosides/Docusate Sodium 50-8.6 MG Tab PO PRN (00:38)
[2024-11-07] MEDS ORDERED: Metoprolol Tartrate 5 MG/5 ML SDV IVPUSH PRN (00:38)
[2024-11-07] MEDS ORDERED: Albuterol 0.083% 2.5 MG/3 ML Neb Soln NEB PRN (00:38)
[2024-11-07] MEDS ORDERED: Ondansetron 4 MG/2 ML SDV IVPUSH PRN (00:38)
[2024-11-07] MEDS ORDERED: Magnesium Hydroxide 400 MG/5 ML Susp 30 ML Cup PO PRN (00:38)
[2024-11-07] MEDS ORDERED: guaiFENesin/Dextromethorphan 100-10 MG/5 ML Soln 5 ML Cup PO PRN (00:45)
[2024-11-07] MEDS ORDERED: 50% Dextrose in Water 50 ML Syringe IVPUSH PRN (01:44)
[2024-11-07] MEDS: Dexamethasone 4 MG/ML SDV IVPUSH ONE (02:32)
[2024-11-07] MEDS: Albumin Human 25 GM in Premix Bag 1 BAG IV SCH (02:37)
[2024-11-07] MEDS ORDERED: Clindamycin in 0.9 % Sod Chlor 600 MG in Premix Bag 1 BAG IV SCH (06:00)
[2024-11-07 06:39] LABS: BASOPHILS PERCENT AUTO 0.1 % (0.0-1.0); EOSINOPHILS PERCENT AUTO 0.2 % (1.0-3.0); LYMPHOCYTES PERCENT AUTO 3.0 % (20.5-50.1); MONOCYTES PERCENT AUTO 1.5 % (2-8); NEUTROPHILS PERCENT AUTO 95.2 % (42.2-75.2); PLATELET COUNT,PLT 254 10^3/uL (150-450); RED BLOOD CELL COUNT 3.14 10^6/uL (4.2-5.4); WHITE BLOOD CELL COUNT,WBC 10.4 10^3/uL (5.0-10.0)
[2024-11-07 07:02] LABS: ALANINE AMINOTRANSFERASE,ALT 13.0 U/L (14-59); ASPARTATE AMNIOTRANSFERASE,AST 9.0 U/L (15-37); BILIRUBIN TOTAL 0.3 mg/dL (0.2-1.0); BLOOD UREA NITROGEN,BUN 16.0 mg/dL (7-18); CARBON DIOXIDE,CO2 31.0 mmol/L (21-32); CHLORIDE,CL 98.0 mmol/L (98-107); CREATININE 0.91 mg/dL (0.55-1.02); EST CRCL DRUG DOSING (CG) 40.67 mL/min; GLUCOSE RANDOM 255.0 mg/dL (70-99); POTASSIUM,K 4.3 mmol/L (3.5-5.1); PROTEIN TOTAL,TP 8.4 g/dL (6.4-8.2); SODIUM,NA 137.0 mmol/L (136-145)
[2024-11-07 07:07] LABS: A/G RATIO 0.5; ESTIMATED GFR 69.0 mL/min (>=60)
[2024-11-07] MEDS: Tiotropium Bromide 4 GM Inhalation Spray (2.5mcg/1 dose; 10 doses) INH SCH (07:12)
[2024-11-07] MEDS: Formoterol/Mometasone 200-5 MCG 13 GM Inhaler INH SCH (07:27)
[2024-11-07 07:41] LABS: CORONAVIRUS COVID-19 NAA NEGATIVE (NEGATIVE); INFLUENZA A NAA NEGATIVE (NEGATIVE); INFLUENZA B NAA NEGATIVE (NEGATIVE); RESPIRATORY SYNCYTIAL VIR NAA NEGATIVE (NEGATIVE)
[2024-11-07] MEDS: Acetaminophen/HYDROcodone 325-5 MG Tab PO PRN (08:43)
[2024-11-07] MEDS: Insulin Lispro Protamine/Lispro 75-25 100 Units/ML 10 ML Vial SUBCUT SCH (08:45)
[2024-11-07] MEDS: Dexamethasone 4 MG/ML SDV IVPUSH SCH (08:45)
[2024-11-07] MEDS: Magnesium Sulfate 2 GM/50 mL 2 GM in Premix Bag 1 BAG IV ONE (11:00)
[2024-11-07] MEDS: SACUBITRIL PO SCH (15:38)
[2024-11-07] MEDS: VALSARTAN PO SCH (15:38)
[2024-11-08 06:57] LABS: PLATELET COUNT,PLT 261 10^3/uL (150-450); RED BLOOD CELL COUNT 3.22 10^6/uL (4.2-5.4); WHITE BLOOD CELL COUNT,WBC 4.4 10^3/uL (5.0-10.0)
[2024-11-08 07:13] LABS: BASOPHILS PERCENT AUTO 0.2 % (0.0-1.0); EOSINOPHILS PERCENT AUTO 0.9 % (1.0-3.0); LYMPHOCYTES PERCENT AUTO 8.6 % (20.5-50.1); MONOCYTES PERCENT AUTO 3.4 % (2-8); NEUTROPHILS PERCENT AUTO 86.9 % (42.2-75.2)
[2024-11-08 07:15] LABS: A/G RATIO 0.7; ALANINE AMINOTRANSFERASE,ALT 11.0 U/L (14-59); ASPARTATE AMNIOTRANSFERASE,AST 9.0 U/L (15-37); BILIRUBIN TOTAL 0.2 mg/dL (0.2-1.0); BLOOD UREA NITROGEN,BUN 18.0 mg/dL (7-18); CARBON DIOXIDE,CO2 30.0 mmol/L (21-32); CHLORIDE,CL 97.0 mmol/L (98-107); CREATININE 0.78 mg/dL (0.55-1.02); EST CRCL DRUG DOSING (CG) 47.19 mL/min; GLUCOSE RANDOM 257.0 mg/dL (70-99); POTASSIUM,K 4.9 mmol/L (3.5-5.1); PROTEIN TOTAL,TP 8.2 g/dL (6.4-8.2); SODIUM,NA 133.0 mmol/L (136-145)
[2024-11-08 07:17] LABS: ESTIMATED GFR 83.0 mL/min (>=60)
[2024-11-08 07:19] LABS: LYMPHOCYTES PERCENT MAN 9 % (20-50); MONOCYTES PERCENT MAN 4 % (2-8); SEG NEUTROPHILS PERCENT MAN 87 % (42-75)
[2024-11-08] MEDS: Sodium Chloride 0.9% 10 ML Syringe FLUSH PRN (10:42)
[2024-11-08] MEDS: Dexamethasone 4 MG/ML SDV IVPUSH SCH (12:31)
[2024-11-09 06:43] LABS: BASOPHILS PERCENT AUTO 0.0 % (0.0-1.0); EOSINOPHILS PERCENT AUTO 0.0 % (1.0-3.0); LYMPHOCYTES PERCENT AUTO 9.5 % (20.5-50.1); MONOCYTES PERCENT AUTO 3.6 % (2-8); NEUTROPHILS PERCENT AUTO 86.9 % (42.2-75.2); PLATELET COUNT,PLT 271 10^3/uL (150-450); RED BLOOD CELL COUNT 3.02 10^6/uL (4.2-5.4); WHITE BLOOD CELL COUNT,WBC 5.9 10^3/uL (5.0-10.0)
[2024-11-09 07:07] LABS: ALANINE AMINOTRANSFERASE,ALT 13.0 U/L (14-59); ASPARTATE AMNIOTRANSFERASE,AST 8.0 U/L (15-37); BILIRUBIN TOTAL 0.2 mg/dL (0.2-1.0); BLOOD UREA NITROGEN,BUN 21.0 mg/dL (7-18); CARBON DIOXIDE,CO2 30.0 mmol/L (21-32); CREATININE 0.76 mg/dL (0.55-1.02); EST CRCL DRUG DOSING (CG) 51.36 mL/min; GLUCOSE RANDOM 189.0 mg/dL (70-99); POTASSIUM,K 5.0 mmol/L (3.5-5.1); PROTEIN TOTAL,TP 7.5 g/dL (6.4-8.2); SODIUM,NA 135.0 mmol/L (136-145)
[2024-11-09 07:14] LABS: CHLORIDE,CL 99.0 mmol/L (98-107)
[2024-11-09 07:18] LABS: A/G RATIO 0.67; ESTIMATED GFR 85.0 mL/min (>=60)
[2024-11-10 06:59] LABS: BASOPHILS PERCENT AUTO 0.0 % (0.0-1.0); EOSINOPHILS PERCENT AUTO 0.0 % (1.0-3.0); LYMPHOCYTES PERCENT AUTO 11.5 % (20.5-50.1); MONOCYTES PERCENT AUTO 4.2 % (2-8); NEUTROPHILS PERCENT AUTO 84.3 % (42.2-75.2); PLATELET COUNT,PLT 281 10^3/uL (150-450); RED BLOOD CELL COUNT 3.25 10^6/uL (4.2-5.4); WHITE BLOOD CELL COUNT,WBC 5.9 10^3/uL (5.0-10.0)
[2024-11-10 07:19] LABS: ALANINE AMINOTRANSFERASE,ALT 15.0 U/L (14-59); ASPARTATE AMNIOTRANSFERASE,AST 12.0 U/L (15-37); BILIRUBIN TOTAL 0.2 mg/dL (0.2-1.0); BLOOD UREA NITROGEN,BUN 19.0 mg/dL (7-18); CARBON DIOXIDE,CO2 34.0 mmol/L (21-32); CHLORIDE,CL 101.0 mmol/L (98-107); CREATININE 0.84 mg/dL (0.55-1.02); EST CRCL DRUG DOSING (CG) 46.47 mL/min; GLUCOSE RANDOM 209.0 mg/dL (70-99); POTASSIUM,K 4.7 mmol/L (3.5-5.1); PROTEIN TOTAL,TP 7.3 g/dL (6.4-8.2); SODIUM,NA 138.0 mmol/L (136-145)
[2024-11-10 07:21] LABS: A/G RATIO 0.62; ESTIMATED GFR 76.0 mL/min (>=60)
[2024-11-10 18:18] VITALS: BP 114/54; PULSE 71
== END 2024-11-10 18:45 | disposition home or self-care (01) | DRG 205 ==
LOC: DL.ED 21:39 → DL.MS 23:38 → DL.ED 11-07 00:14
PROVIDERS: ADMIT Internal Medicine; ATTEND Internal Medicine
DX: J98.4 Other disorders of lung (principal); E43 Unspecified severe protein-calorie malnutrition; I50.43 Acute on chronic combined systolic (congestive) and diastolic (congestive) heart failure; J96.21 Acute and chronic respiratory failure with hypoxia; Z68.1 Body mass index [BMI] 19.9 or less, adult; E87.1 Hypo-osmolality and hyponatremia; I11.0 Hypertensive heart disease with heart failure; J44.9 Chronic obstructive pulmonary disease, unspecified; M06.9 Rheumatoid arthritis, unspecified; H54.7 Unspecified visual loss; I50.23 Acute on chronic systolic (congestive) heart failure; I48.91 Unspecified atrial fibrillation; K21.9 Gastro-esophageal reflux disease without esophagitis; I25.2 Old myocardial infarction; M54.9 Dorsalgia, unspecified; E88.09 Other disorders of plasma-protein metabolism, not elsewhere classified; D63.8 Anemia in other chronic diseases classified elsewhere; E11.65 Type 2 diabetes mellitus with hyperglycemia; G89.29 Other chronic pain; G43.909 Migraine, unspecified, not intractable, without status migrainosus; I25.10 Atherosclerotic heart disease of native coronary artery without angina pectoris; Z96.649 Presence of unspecified artificial hip joint; E03.9 Hypothyroidism, unspecified; E11.9 Type 2 diabetes mellitus without complications; Z99.81 Dependence on supplemental oxygen; Z88.0 Allergy status to penicillin; M19.90 Unspecified osteoarthritis, unspecified site; Z86.16 Personal history of COVID-19; Z79.84 Long term (current) use of oral hypoglycemic drugs; Z90.710 Acquired absence of both cervix and uterus; Z87.891 Personal history of nicotine dependence; Z79.82 Long term (current) use of aspirin; Z79.52 Long term (current) use of systemic steroids; Z79.899 Other long term (current) drug therapy; Z79.890 Hormone replacement therapy; Z79.01 Long term (current) use of anticoagulants; Z88.5 Allergy status to narcotic agent; Z88.8 Allergy status to other drugs, medicaments and biological substances; Z91.09 Other allergy status, other than to drugs and biological substances
CPT/HCPCS: 36415; 71045; 80053; 82947; 83605; 83735; 83880; 84484; 85025; 86140; 87637; 93005; 93010; 94664; 99223; 99233; 99238; 99285; A9270-GY; J0456; J0696; J1100; J1171; J1815-GY; J2470; J3475; J7040; J7050; J8540; P9047

== ENCOUNTER 2024-11-24 22:59 | Emergency (ER) | payer MEDICARE, MEDICAID ==
[2024-11-24 23:53] LABS: BASOPHILS PERCENT AUTO 0.0 % (0.0-1.0); EOSINOPHILS PERCENT AUTO 0.7 % (1.0-3.0); LYMPHOCYTES PERCENT AUTO 17.1 % (20.5-50.1); MONOCYTES PERCENT AUTO 4.2 % (2-8); NEUTROPHILS PERCENT AUTO 78.0 % (42.2-75.2); PLATELET COUNT,PLT 143 10^3/uL (150-450); RED BLOOD CELL COUNT 3.79 10^6/uL (4.2-5.4); WHITE BLOOD CELL COUNT,WBC 10.0 10^3/uL (5.0-10.0)
[2024-11-24] MEDS: Dexamethasone 4 MG/ML SDV IVPUSH ONE (23:54)
[2024-11-25 00:10] LABS: A/G RATIO 0.52; ALANINE AMINOTRANSFERASE,ALT 8 U/L (14-59); ASPARTATE AMNIOTRANSFERASE,AST 14 U/L (15-37); BILIRUBIN TOTAL 0.3 mg/dL (0.2-1.0); BLOOD UREA NITROGEN,BUN 19 mg/dL (7-18); CARBON DIOXIDE,CO2 33 mmol/L (21-32); CHLORIDE,CL 101 mmol/L (98-107); CREATININE 0.83 mg/dL (0.55-1.02); ESTIMATED GFR 77 mL/min (>=60); ETHANOL BLOOD MEDICAL < 3 mg/dL (0); GLUCOSE RANDOM 159 mg/dL (70-99); LACTIC ACID 1.3 mmol/L (0.4-2.0); POTASSIUM,K 4.0 mmol/L (3.5-5.1); PROTEIN TOTAL,TP 7.9 g/dL (6.4-8.2); SODIUM,NA 139 mmol/L (136-145)
[2024-11-25 00:16] LABS: B-TYPE NATRIURETIC PEPTIDE,BNP 1120 pg/ml (0-100)
[2024-11-25] MEDS: Furosemide 40 MG/4 ML VIAL IVPUSH ONE (01:20)
[2024-11-25 03:22] VITALS: BP 113/71; PULSE 94
== END 2024-11-25 03:15 | disposition home or self-care (01) ==
LOC: DL.ED 22:59
DX: I11.0 Hypertensive heart disease with heart failure (principal); I50.9 Heart failure, unspecified; I25.2 Old myocardial infarction; I25.10 Atherosclerotic heart disease of native coronary artery without angina pectoris; I48.91 Unspecified atrial fibrillation; E11.9 Type 2 diabetes mellitus without complications; E03.9 Hypothyroidism, unspecified; J44.9 Chronic obstructive pulmonary disease, unspecified; M19.90 Unspecified osteoarthritis, unspecified site; Z79.899 Other long term (current) drug therapy; Z79.890 Hormone replacement therapy; Z79.4 Long term (current) use of insulin; Z88.5 Allergy status to narcotic agent; Z88.8 Allergy status to other drugs, medicaments and biological substances; Z88.0 Allergy status to penicillin; Z91.09 Other allergy status, other than to drugs and biological substances; Z86.16 Personal history of COVID-19; Z90.49 Acquired absence of other specified parts of digestive tract
CPT/HCPCS: 36415; 71045; 80053; 80307; 83605; 83690; 83735; 83880; 84145; 84484; 85025; 87040; 93005; 93010; 96374; 96375; 99284; 99285; A9270; J1100; J1938

== ENCOUNTER 2024-12-14 19:37 | Emergency (ER) | payer MEDICARE, MEDICAID ==
[2024-12-14 19:55] LABS: BASOPHILS PERCENT AUTO 0.1 % (0.0-1.0); EOSINOPHILS PERCENT AUTO 0.1 % (1.0-3.0); LYMPHOCYTES PERCENT AUTO 10.9 % (20.5-50.1); MONOCYTES PERCENT AUTO 4.6 % (2-8); NEUTROPHILS PERCENT AUTO 84.3 % (42.2-75.2); PLATELET COUNT,PLT 220 10^3/uL (150-450); RED BLOOD CELL COUNT 3.74 10^6/uL (4.2-5.4); WHITE BLOOD CELL COUNT,WBC 16.3 10^3/uL (5.0-10.0)
[2024-12-14] MEDS: Dexamethasone 4 MG/ML SDV IVPUSH ONE (20:09)
[2024-12-14] MEDS: Magnesium Sulfate 2 GM/50 mL 2 GM in Premix Bag 1 BAG IV ONE (20:16)
[2024-12-14] MEDS: Albuterol 0.083% 2.5 MG/3 ML Neb Soln NEB ONE (20:20)
[2024-12-14 20:28] LABS: ALANINE AMINOTRANSFERASE,ALT 18.0 U/L (14-59); ASPARTATE AMNIOTRANSFERASE,AST 39.0 U/L (15-37); BILIRUBIN TOTAL 0.5 mg/dL (0.2-1.0); BLOOD UREA NITROGEN,BUN 23.0 mg/dL (7-18); CARBON DIOXIDE,CO2 38.0 mmol/L (21-32); CHLORIDE,CL 92.0 mmol/L (98-107); CREATININE 1.37 mg/dL (0.55-1.02); EST CRCL DRUG DOSING (CG) 26.99 mL/min; GLUCOSE RANDOM 242.0 mg/dL (70-99); POTASSIUM,K 3.9 mmol/L (3.5-5.1); PROTEIN TOTAL,TP 7.8 g/dL (6.4-8.2); SODIUM,NA 139.0 mmol/L (136-145)
[2024-12-14 20:30] LABS: A/G RATIO 0.5; ESTIMATED GFR 42.0 mL/min (>=60)
[2024-12-14 20:31] LABS: LACTIC ACID 3.9 mmol/L (0.4-2.0)
[2024-12-14 20:33] LABS: B-TYPE NATRIURETIC PEPTIDE,BNP 921.0 pg/ml (0-100)
[2024-12-14 21:03] LABS: O2 DELIVERY DEVICE BIPAP; PH,VENOUS 7.28 (7.31-7.41)
[2024-12-14 21:04] VITALS: BP 104/66
[2024-12-14 21:04] LABS: BASE EXCESS VENOUS 11.6 mmol/l ((-2)-(+3)); BICARBONATE,VENOUS 41 mmol/l (19-25); O2 SATURATION VENOUS 71.0 % (60-80); PCO2 VENOUS 89 mmHg (41-51); PO2 VENOUS 47 mmHg (35-42)
[2024-12-14 22:43] VITALS: PULSE 96
== END 2024-12-14 21:39 ==
LOC: DL.ED 19:37
DX: A41.9 Sepsis, unspecified organism (principal); J18.9 Pneumonia, unspecified organism; J44.9 Chronic obstructive pulmonary disease, unspecified; I11.0 Hypertensive heart disease with heart failure; I50.9 Heart failure, unspecified; E78.00 Pure hypercholesterolemia, unspecified; I25.2 Old myocardial infarction; E11.9 Type 2 diabetes mellitus without complications; E03.9 Hypothyroidism, unspecified; K21.9 Gastro-esophageal reflux disease without esophagitis; Z86.16 Personal history of COVID-19; Z90.710 Acquired absence of both cervix and uterus; Z88.5 Allergy status to narcotic agent; Z88.0 Allergy status to penicillin; Z91.09 Other allergy status, other than to drugs and biological substances; Z79.82 Long term (current) use of aspirin; Z79.84 Long term (current) use of oral hypoglycemic drugs; Z79.890 Hormone replacement therapy; Z79.4 Long term (current) use of insulin
CPT/HCPCS: 36415; 71045; 80053; 82803; 83605; 83735; 83880; 84484; 85025; 86140; 87040; 93005; 93010; 94640; 94660; 96365; 96375; 99285; A9270; J0692; J1100; J3373; J3475; J7030; J7050